=== PATIENT | female | born 1955 | race Caucasian/White ===

== ENCOUNTER 2020-12-15 11:40 | Observation (INO) ==
[2020-12-15] MEDS ORDERED: ONDANSETRON INJ 2 MG/ML 2 ML VIAL IV STA (12:01)
[2020-12-15] MEDS ORDERED: SODIUM CHLORIDE 0.9% 1000ML 1,000 ML IV STA (12:01)
--- NOTE | 2020-12-15 12:23 | Emergency Department Note ---
Impression & Plan Hypotension, Colitis, Left sided abdominal pain, Leukocytosis, MATILDE (acute kidney injury) ED Provider Note NAME: SIXTO GRACIA AGE: 64 SEX: F : 1955 ARRIVES VIA: Walk-In INFORMANT: [Patient] ED PROVIDER(S): [Kaiden Chisholm MD] CHIEF COMPLAINT: Abdominal pain HISTORY OF PRESENT ILLNESS: The patient is a 64-year-old female presents with 24 hours of intermittent, colicky abdominal pain. The pain is described as diffuse and sometimes, a 10/10. No pain radiation. Nothing makes the pain better or worse. There has been some nausea, no vomiting. No shortness of breath, fever or chest pain. The patient does feel bloated. The patient states that she had a bowel movement today, it seemed normal. She has had decreased bowel movements though as of late so she is concerned about some constipation. No urinary complaints. The patient had surgery for a fracture to her right foot 10 days ago, she is currently in a cast. She has been using some pain medications intermittently since the surgery. The patient denies any surgical work on her abdomen previously. REVIEW OF SYSTEMS: See HPI for pertinent positives and negatives. A total of ten systems were reviewed and were otherwise negative. PMHx/PSHx: See Below SOCIAL HISTORY: See Below. PHYSICAL EXAM: GENERAL: Patient is in no acute distress. HEENT: No acute trauma, normocephalic atraumatic, mucous membranes moist, no nasal congestion, no scleral icterus. NECK: No stridor, no adenopathy, no meningismus, trachea is midline. LUNGS: Clear to auscultation bilaterally, no wheeze, no rhonchi, breath sounds equal. HEART: Without murmurs gallops or rubs, regular rate and rhythm. ABDOMEN: Moderately tender in the left lower quadrant. Bowel sounds are positive. There is no peritonitis. The abdomen is otherwise soft. There is some abdominal distention, no obvious hernias. EXTREMITIES: No cyanosis. There is a cast on the right foot and ankle. No significant edema to the left lower extremity. NEUROLOGIC: Oriented x 3, no acute motor or sensory deficits, no focal weakness. SKIN: No rash, no jaundice, no diaphoresis. Somewhat pale. DIFFERENTIAL DIAGNOSIS: Appendicitis, ovarian cyst, ovarian torsion, infections, diverticulitis, UTI, obstruction, mesenteric ischemia, aortic pathology, inflammatory bowel disease, renal colic, PUD, pancreatitis, biliary pathology, hernia, volvulus, constipation, as well as other pathologies. EMERGENCY DEPARTMENT COURSE/PROCEDURES: ECG: Indication was abdominal pain. The ECG shows what is a likely normal sinus rhythm with a rate of 91. There is no PVC. There is no ST elevation. The QTc is 423. The patient does have inverted T waves in the higher lateral leads. There is an old inferior infarct and some poor R wave progression. Compared to an ECG from 02 November 2008, the T wave changes are less pronounced. Criteria for potential old inferior infarct is new. Continuous Cardiac Monitoring: An order was placed for continuous cardiac monitoring. The monitor shows a rate of 95 with normal sinus rhythm. Critical Care Note: I have personally spent 46 minutes of critical care time in the direct management of this patient. This includes bedside care, interpretation of diagnostic studies, and testing, discussion with consultants, patient, and family members, and other required patient management activities. This 46 minutes is in excess of all separately billable procedures. MEDICAL DECISION MAKING: There is a moderate leukocytosis consistent with potential infection. No worris ome anemia. Platelet count mildly elevated. INR was elevated at 3.8, this is consistent with her Coumadin use, she is over anticoagulated. Potassium slightly high at 5.3. There was some acute kidney injury with a creatinine of 1.84. There was some liver enzyme elevation, the bilirubin however was normal. No evidence for pancreatitis. ECG shows a sinus rhythm, no acute ischemia. Cardiac enzyme testing x1 is not consistent with acute cardiac injury. Lactic acid level was not elevated making severe sepsis less likely. Covid testing returned negative. Chest film did not show pneumonia or free air. A potential subacute rib fracture was seen. Abdominal and pelvis CT showed a colitis/p roctitis. No bowel obstruction. No abscess. Pneumonia was questioned as caught on the CT scan. Urinalysis is pending. The patient was hypotensive upon arrival. She was given IV saline, 1 L. She was given a second liter of IV saline. She received IV Zofran for nausea, IV Ertapenem as empiric antibiotic coverage. The patient is still somewhat hypotensive although, her pressure has improved. Given the leukocytosis, her hypotension, her acute kidney injury and CT findings of colitis/proctitis, I do think a hospital stay is warranted. I spoke to the patient and case management. The on-call hospitalist has been consulted. Past Med/Surg History Medical History Anemia Ankle fracture RT Hx of migraines Hyperlipidemia Hypertension Stroke 2008 (NO PROBLEMS CURRENTLY) Surgical History History of nasal surgery History of tonsillectomy [place] teeth removed Family History Father Alcohol abuse Heart disease Seizure Brother Alcohol abuse Lung disease Mother Heart disease Kidney stones Hypertension Sister Heart disease Lung disease Other Myocardial infarction No family history of adverse response to anesthesia Denies family history of Ovarian cancer Prostate cancer Breast cancer Colorectal cancer Social History Smoking Status: Never smoker Second Hand Exposure: Yes ( A CHILD); Hx Alcohol Use: No Hx Substance Use: No Preferred Language: Nepali 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 Beliefs That Will Affect Care: None marital status: Current Living Situation: Spouse current occupational status: retired Other Information That Helps Us Care for You: No Feels Safe at Home: Yes Safety Concerns: Feels Safe At This Time Dental Care, Regularly: Yes Physical Activity Frequency: Daily Assistive Devices: Walker and Wheelchair Allergies Allergies Allergy/AdvReac Type Severity Reaction Status Date / Time Penicillins Allergy Mild Verified 12/05/20 06:28 Home Meds Home Medications Medication Instructions Recorded Confirmed atorvastatin 40 mg PO HS 11/30/20 12/15/20 carvedilol 25 mg PO BID 11/30/20 12/15/20 lisinopril 10 mg PO HS 11/30/20 12/15/20 warfarin 2.5 mg PO HS 11/30/20 12/15/20 acetaminophen [Tylenol Extra 500 mg PO Q6H PRN 12/15/20 12/15/20 Strength] cholecalciferol (vitamin D3) 0 mcg PO DAILY 12/15/20 12/15/20 zinc 0 mg PO DAILY 12/15/20 12/15/20 Previous Rx's Medication Instructions Recorded aspirin 81 mg tablet,delayed 81 mg PO DAILY #30 tab 11/17/20 release oxycodone 5 mg PO Q4H PRN #15 tab 11/25/20 Results & Data (ED) Vital Signs Vital Signs - 24 hr 12/15/20 11:43 12/15/20 11:50 12/15/20 12:08 Temperature 36.3 C L Temperature Source Temporal Artery Scan Pulse Rate 107 H 94 H 93 H Pulse Rate [Finger] Pulse Rate from SpO2 Sensor Respiratory Rate 20 17 20 Respiratory Effort / Characteristics Non-Labored Spontaneous Respiratory Depth Normal Blood Pressure 83/52 L Blood Pressure [Right Arm] 86/50 L Blood Pressure Mean 62 Blood Pressure Mean [Right Arm] 62 Pulse Oximetry 98 Oxygen Delivery Method Room Air Sepsis Recent Fever Within 48 Hours No Sepsis New/Unexplained Change in Mental Status No Sepsis Action Taken by Nursing No Action Required 12/15/20 12:10 12/15/20 12:11 12/15/20 12:16 Temperature Temperature Source Pulse Rate 93 H 89 Pulse Rate [Finger] Pulse Rate from SpO2 Sensor 90 Respiratory Rate 24 27 H Respiratory Effort / Characteristics Respiratory Depth Blood Pressure 89/56 L Blood Pressure [Right Arm] Blood Pressure Mean 67 Blood Pressure Mean [Right Arm] Pulse Oximetry 97 99 Oxygen Delivery Method Room Air Sepsis Recent Fever Within 48 Hours Sepsis New/Unexplained Change in Mental Status Sepsis Action Taken by Nursing 12/15/20 12:20 12/15/20 12:30 12/15/20 12:40 Temperature Temperature Source Pulse Rate 91 H 83 79 Pulse Rate [Finger] Pulse Rate from SpO2 Sensor 92 H Respiratory Rate 23 24 18 Respiratory Effort / Characteristics Respiratory Depth Blood Pressure Blood Pressure [Right Arm] Blood Pressure Mean Blood Pressure Mean [Right Arm] Pulse Oximetry 100 Oxygen Delivery Method Sepsis Recent Fever Within 48 Hours Sepsis New/Unexplained Change in Mental Status Sepsis Action Taken by Nursing 12/15/20 12:50 12/15/20 13:00 12/15/20 13:10 Temperature Temperature Source Pulse Rate 84 81 82 Pulse Rate [Finger] Pulse Rate from SpO2 Sensor Respiratory Rate 20 19 19 Respiratory Effort / Characteristics Respiratory Depth Blood Pressure Blood Pressure [Right Arm] Blood Pressure Mean Blood Pressure Mean [Right Arm] Pulse Oximetry Oxygen Delivery Method Sepsis Recent Fever Within 48 Hours Sepsis New/Unexplained Change in Mental Status Sepsis Action Taken by Nursing 12/15/20 13:20 12/15/20 13:30 12/15/20 13:34 Temperature Temperature Source Pulse Rate 90 87 89 Pulse Rate [Finger] Pulse Rate from SpO2 Sensor Respiratory Rate 25 H 22 23 Respiratory Effort / Characteristics Respiratory Depth Blood Pressure 80/53 L Blood Pressure [Right Arm] Blood Pressure Mean 62 Blood Pressure Mean [Right Arm] Pulse Oximetry Oxygen Delivery Method Sepsis Recent Fever Within 48 Hours Sepsis New/Unexplained Change in Mental Status Sepsis Action Taken by Nursing 12/15/20 13:36 12/15/20 13:47 12/15/20 13:50 Temperature Temperature Source Pulse Rate 89 84 Pulse Rate [Finger] 85 Pulse Rate from SpO2 Sensor 84 Respiratory Rate 16 24 23 Respiratory Effort / Characteristics Non-Labored Respiratory Depth Normal Blood Pressure Blood Pressure [Right Arm] 80/53 L Blood Pressure Mean Blood Pressure Mean [Right Arm] 62 Pulse Oximetry 96 98 Oxygen Delivery Method Room Air Sepsis Recent Fever Within 48 Hours Sepsis New/Unexplained Change in Mental Status Sepsis Action Taken by Nursing 12/15/20 14:00 12/15/20 14:10 12/15/20 14:20 Temperature Temperature Source Pulse Rate 88 79 84 Pulse Rate [Finger] Pulse Rate from SpO2 Sensor 87 80 84 Respiratory Rate 18 24 22 Respiratory Effort / Characteristics Respiratory Depth Blood Pressure Blood Pressure [Right Arm] Blood Pressure Mean Blood Pressure Mean [Right Arm] Pulse Oximetry 97 97 97 Oxygen Delivery Method Sepsis Recent Fever Within 48 Hours Sepsis New/Unexplained Change in Mental Status Sepsis Action Taken by Nursing 12/15/20 14:30 12/15/20 14:40 12/15/20 14:50 Temperature Temperature Source Pulse Rate 94 H 93 H 94 H Pulse Rate [Finger] Pulse Rate from SpO2 Sensor 95 H 94 H Respiratory Rate 18 17 22 Respiratory Effort / Characteristics Respiratory Depth Blood Pressure Blood Pressure [Right Arm] Blood Pressure Mean Blood Pressure Mean [Right Arm] Pulse Oximetry 97 74 L 97 Oxygen Delivery Method Sepsis Recent Fever Within 48 Hours Sepsis New/Unexplained Change in Mental Status Sepsis Action Taken by Nursing 12/15/20 15:00 12/15/20 15:10 12/15/20 15:17 Temperature Temperature Source Pulse Rate 102 H 92 H 85 Pulse Rate [Finger] Pulse Rate from SpO2 Sensor 98 H 92 H 84 Respiratory Rate 20 19 19 Respiratory Effort / Characteristics Respiratory Depth Blood Pressure 96/52 L Blood Pressure [Right Arm] Blood Pressure Mean 66 Blood Pressure Mean [Right Arm] Pulse Oximetry 99 91 96 Oxygen Delivery Method Sepsis Recent Fever Within 48 Hours Sepsis New/Unexplained Change in Mental Status Sepsis Action Taken by [facility] Medications Current Medication List: was personally reviewed by me Laboratory Data Attestation: I reviewed the patient's lab results. Result diagrams: 12/15/20 12:15 12/15/20 12:15 Lab Results 12/15/20 12/15/20 12/15/20 Range/Units 12:15 12:15 12:15 WBC 15.59 H (4.8-10.8) K/uL RBC 3.90 L (4.2-5.4) M/uL Hgb 11.9 L (12.0-16.0) g/dL Hct 34.7 L (37-47) % MCV 89.0 (80-100) fL MCH 30.5 (25-34) pg MCHC 34.3 (32-36) g/dL RDW Std Deviation 43.1 (36.4-46.3) fL RDW Coeff of Anibal 13.4 (11.5-14.5) % Plt Count 426 H (130-400) K/uL MPV 9.6 (7.4-10.4) fL Immature Gran % (Auto) 0.3 % Neut % (Auto) 86.0 % Lymph % (Auto) 6.9 % [place] % (Auto) 5.5 % Eos % (Auto) 1.2 % Baso % (Auto) 0.1 % Neut # (Auto) 13.40 H (1.4-6.5) K/uL Lymph # (Auto) 1.08 L (1.2-3.4) K/uL [place] # (Auto) 0.85 H (0.11-0.59) K/uL Eos # (Auto) 0.19 (0-0.5) K/uL Baso # (Auto) 0.02 (0-0.2) K/uL Immature Gran # (Auto) 0.05 H (0.00-0.02) K/uL PT (9.0-12.0) Seconds INR (0.9-1.1) APTT (21.0-31.0) Seconds PTT Ratio Sodium 138 (136-145) mmol/L Potassium 5.3 H (3.5-5.1) mmol/L Chloride 109 H (98-107) mmol/L Carbon Dioxide 22 (21-32) mmol/L Anion Gap 7.0 (3-11) BUN 27 H (7-18) mg/dl Creatinine 1.84 H (0.6-1.2) mg/dl Est Cr Clr Drug Dosing 26.0 ml/min Est GFR ( Amer) 32.5 Est GFR (Non-Af Amer) 28.1 BUN/Creatinine Ratio 14.6 (10-20) Glucose 96 (70-99) mg/dl Lactate 1.3 (0.4-2.0) mmol/L Calcium 10.0 (8.5-10.1) mg/dl Magnesium 1.9 (1.8-2.4) mg/dl Total Bilirubin 0.8 (0.2-1) mg/dl AST 108 H (15-37) U/L ALT 105 H (12-78) U/L Alkaline Phosphatase 160 H (45-117) U/L Troponin I < 0.015 (0-0.045) ng/ml Total Protein 7.2 (6.4-8.2) gm/dl Albumin 3.3 L (3.4-5.0) gm/dl Globulin 3.9 (2.5-4.0) gm/dl Albumin/Globulin Ratio 0.8 L (0.9-2) Lipase 265 (73-393) U/L COVID-19 Eval Order SARS-CoV-2, RNA, NAAT (NEGATIVE) 12/15/20 12/15/20 12/15/20 Range/Units 12:15 14:40 14:40 WBC (4.8-10.8) K/uL RBC (4.2-5.4) M/uL Hgb (12.0-16.0) g/dL Hct (37-47) % MCV (80-100) fL MCH (25-34) pg MCHC (32-36) g/dL RDW Std Deviation (36.4-46.3) fL RDW Coeff of Anibal (11.5-14.5) % Plt Count (130-400) K/uL MPV (7.4-10.4) fL Immature Gran % (Auto) % Neut % (Auto) % Lymph % (Auto) % [place] % (Auto) % Eos % (Auto) % Baso % (Auto) % Neut # (Auto) (1.4-6.5) K/uL Lymph # (Auto) (1.2-3.4) K/uL [place] # (Auto) (0.11-0.59) K/uL Eos # (Auto) (0-0.5) K/uL Baso # (Auto) (0-0.2) K/uL Immature Gran # (Auto) (0.00-0.02) K/uL PT 34.9 H (9.0-12.0) Seconds INR 3.8 H (0.9-1.1) APTT 79.3 H* (21.0-31.0) Seconds PTT Ratio 3.0 Sodium (136-145) mmol/L Potassium (3.5-5.1) mmol/L Chloride (98-107) mmol/L Carbon Dioxide (21-32) mmol/L Anion Gap (3-11) BUN (7-18) mg/dl Creatinine (0.6-1.2) mg/dl Est Cr Clr Drug Dosing ml/min Est GFR ( Amer) Est GFR (Non-Af Amer) BUN/Creatinine Ratio (10-20) Glucose (70-99) mg/dl Lactate (0.4-2.0) mmol/L Calcium (8.5-10.1) mg/dl Magnesium (1.8-2.4) mg/dl Total Bilirubin (0.2-1) mg/dl AST (15-37) U/L ALT (12-78) U/L Alkaline Phosphatase (45-117) U/L Troponin I (0-0.045) ng/ml Total Protein (6.4-8.2) gm/dl Albumin (3.4-5.0) gm/dl Globulin (2.5-4.0) gm/dl Albumin/Globulin Ratio (0.9-2) Lipase (73-393) U/L COVID-19 Eval Order Covid19 [facility] SARS-CoV-2, RNA, NAAT NEGATIVE (NEGATIVE) Administered Medications Ampicillin Sodium/Sulbactam Sodium 1,500 mg/ Sodium Chloride 104 mls @ 200 mls/hr IV Q8H [facility]; Protocol Stop: 12/25/20 15:18 Last Infusion: 12/15/20 16:16 Dose: 0 mls/hr Documented by: [id number] Admin: 12/15/20 15:40 Dose: 200 mls/hr Documented by: [id number] Lactated Ringer's (Lr) 1,000 mls @ 80 mls/hr IV .[id number] BILL Stop: 12/16/20 17:36 Last Admin: 12/15/20 18:32 Dose: 80 mls/hr Documented by: [id number] Discontinued Medications Sodium Chloride (Nss 1000ml) 1,000 mls @ 999 mls/hr IV .Q1H1M STA Stop: 12/15/20 13:01 Last Infusion: 12/15/20 13:24 Dose: 0 mls/hr Documented by: [id number] Admin: 12/15/20 12:22 Dose: 999 mls/hr Documented by: [id number] Sodium Chloride (Nss 1000ml) 1,000 mls @ 999 mls/hr IV .Q1H1M ONE Stop: 12/15/20 15:27 Last Infusion: 12/15/20 16:16 Dose: 0 mls/hr Documented by: [id number] Admin: 12/15/20 15:04 Dose: 999 mls/hr Documented by: [id number] Ertapenem (Invanz) 10 mls @ 2 mls/min IV NOW STA Stop: 12/15/20 14:31 Last Admin: 12/15/20 15:20 Dose: Not Given Documented by: [id number] Ondansetron HCl (Ondansetron Inj 2 Mg/Ml 2 Ml Vial) 4 mg IV NOW STA Stop: 12/15/20 12:02 Last Admin: 12/15/20 12:22 Dose: 4 mg Documented by: [id number] Imaging Data Radiologist's Impression: XR chest 1V portable HISTORY: 64 years-old Female abd pain acute chest and abdominal pain COMPARISON: Chest radiograph 10/30/2008 TECHNIQUE: Portable AP view of the chest FINDINGS: Cardiomediastinal and hilar silhouettes are within normal limits. There is no pneumothorax, pleural effusion, airspace consolidation or overt pulmonary edema. Minimal lateral right lung base opacities may reflect atelectasis. Degenerative spurring of the AC joint. Acute subacute appearing slightly displaced fracture involves the lateral right ninth rib. IMPRESSION: 1. No acute cardiopulmonary abnormality. 2. Acute versus subacute slightly displaced fracture of the lateral right ninth rib. ADDENDUM ADDENDUM: The findings of the report are unchanged. As an additional impression point, there is an acute to subacute appearing right lateral 9th rib fracture. Electronically signed by: Kaiden Merida M.D. 12/15/2020 2:[address] SCAN OF THE ABDOMEN AND PELVIS WITHOUT IV CONTRAST CLINICAL HISTORY: Left lower quadrant abdominal pain. COMPARISON STUDY: No priors. TECHNIQUE: CT scan of the abdomen and pelvis is performed from the lung bases to the proximal femora. Images are reviewed in the axial, sagittal, and coronal planes. IV contrast was not administered for this examination. Note that the examination is suboptimal without oral and IV contrast. A dose lowering technique was utilized adhering to the principles of ALARA. The examination is compromised by motion artifact. CT DOSE: 264.67 mGy.cm FINDINGS: Lung bases: The heart is normal in size and without pericardial effusion. Patchy airspace consolidation is present at both lung bases. No pleural effusion is seen. There is a tiny hiatal hernia. Liver: The unenhanced liver is normal in size, contour, and attenuation. There is no intrahepatic biliary ductal dilatation. Gallbladder: Unremarkable. Spleen: Normal in size and attenuation. Pancreas: The unenhanced pancreas is grossly unremarkable. Adrenal glands: Unremarkable. Kidneys: The unenhanced kidneys are normal in size. There is moderate right- sided hydronephrosis. The right ureter is normal in caliber, with no obstructing stone or lesion identified. There is no left-sided hydronephrosis. There are no renal calculi identified. There is no evidence of contour deforming renal mass lesion. Abdominal vasculature: The abdominal aorta is normal in course and caliber noting moderate atherosclerotic calcification. Bowel: There is a long segment of colonic wall thickening which extends from the distal descending colon to the rectum. There is associated mucosal edema with surrounding inflammatory change and fluid. Moderate fecal retention is noted upstream common there is liquid stool in the right colon. Mild wall thickening is noted in the right colon. There is also mild wall thickening and infiltration seen involving several small bowel loops. No bowel obstruction is identified. The appendix is normal as visualized. Peritoneum: No intraperitoneal free air is seen. There is trace perihepatic and pelvic ascites. Lymphadenopathy: None. Pelvic viscera: The bladder is normal as visualized. The uterus is normal as imaged noting an intrauterine device in place. No adnexal lesion is seen. Skeletal structures: The skeletal structures are osteopenic. There is an acute to subacute appearing right lateral 9th rib fracture. No lytic or blastic le sions are seen. There is a posterior disc herniation at L4-L5. IMPRESSION: 1. Findings are consistent with a nonspecific enteritis and proctocolitis. This is greatest from the distal descending colon to the rectum. 2. There is moderate fecal retention in the upstream colon, with liquid stool seen in the right colon. 3. There is trace perihepatic and pelvic ascites. 4. Mild patchy airspace consolidation is seen at both lung bases. This likely represents a mild infectious/inflammatory pneumonitis and clinical correlation will be required. 5. There is moderate right-sided hydronephrosis. The right ureter is normal in caliber, with no stone or obstructing lesion seen. 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 Nonemergent follow-up with urology is recommended. 6. An intrauterine device is in place. 7. Additional findings as above. Discharge Plan Visit Data Chief Complaint: Abdominal Pain Stated Complaint: ABD PAIN, NO APPETITE ED Provider: Kaiden Chisholm Discharge Problem: Hypotension, Colitis, Left sided abdominal pain, Leukocytosis, MATILDE (acute kidney injury) Patient Disposition: Admitted As Inpatient Condition: Fair Discharge Instructions Interventions: ED Discharge Assessment Last Done: 12/15/20 16:42 Discharge Problem: Hypotension Qualifiers: Hypotension type: unspecified hypotension type Qualified Code(s): I95.9 - Hypotension, unspecified Leukocytosis Qualifiers: Leukocytosis type: unspecified Qualified Code(s): D72.829 - Elevated white bl ood cell count, unspecified
[2020-12-15 12:28] LABS: Hematocrit (blood only) 34.7 % (37-47); Hemoglobin 11.9 g/dL (12.0-16.0); Mean Corpuscular Hemoglobin 30.5 pg (25-34); Mean Corpuscular Hgb Conc 34.3 g/dL (32-36); Mean Platelet Volume 9.6 fL (7.4-10.4); Platelet Count 426 K/uL (130-400); RDW Coefficient of Variation 13.4 % (11.5-14.5); RDW Standard Deviation 43.1 fL (36.4-46.3); White Blood Count 15.59 K/uL (4.8-10.8)
--- NOTE | 2020-12-15 12:37 | XRay Report ---
XR chest 1V portable HISTORY: 64 years-old Female abd pain acute chest and abdominal pain COMPARISON: Chest radiograph 10/30/2008 TECHNIQUE: Portable AP view of the chest FINDINGS: Cardiomediastinal and hilar silhouettes are within normal limits. There is no pneumothorax, pleural e ffusion, airspace consolidation or overt pulmonary edema. Minimal lateral right lung base opacities m ay reflect atelectasis. Degenerative spurring of the AC joint. Acute subacute appearing slightly disp laced fracture involves the lateral right ninth rib. IMPRESSION: 1. No acute cardiopulmonary abnormality. 2. Acute versus subacute slightly displaced fracture of the lateral right ninth rib. ACT 112: Negative or not required by law. The above report was generated using voice recognition software. It may contain grammatical, syntax o r spelling errors. Electronically signed by: Giovanni Pavon M.D. 12/15/2020 12:36 PM
[2020-12-15 12:46] LABS: Alanine Aminotransferase 105 U/L (12-78); Albumin Level 3.3 gm/dl (3.4-5.0); Aspartate Aminotransferase 108 U/L (15-37); BUN Creatinine Ratio 14.6 (10-20); Blood Urea Nitrogen 27 mg/dl (7-18); Carbon Dioxide 22 mmol/L (21-32); Chloride 109 mmol/L (98-107); Est GFR (African American) 32.5; Est GFR (Non-African American) 28.1; Glucose 96 mg/dl (70-99); Lipase 265 U/L (73-393); Magnesium 1.9 mg/dl (1.8-2.4); Potassium 5.3 mmol/L (3.5-5.1); Sodium 138 mmol/L (136-145)
[2020-12-15 12:47] LABS: Basophils # (auto) 0.02 K/uL (0-0.2); Basophils % (auto) 0.1 %; Eosinophils # (auto) 0.19 K/uL (0-0.5); Eosinophils % (auto) 1.2 %; Immature Granulocytes # (auto) 0.05 K/uL (0.00-0.02); Immature Granulocytes % (auto) 0.3 %; Lymphocytes # (auto) 1.08 K/uL (1.2-3.4); Lymphocytes % (auto) 6.9 %; Monocytes # (auto) 0.85 K/uL (0.11-0.59); Monocytes % (auto) 5.5 %
[2020-12-15 12:48] LABS: INR 3.8 (0.9-1.1); Prothrombin Time 34.9 Seconds (9.0-12.0)
[2020-12-15 12:51] LABS: Albumin Globulin Ratio 0.8 (0.9-2); Alkaline Phosphatase 160 U/L (45-117); Bilirubin,Total 0.8 mg/dl (0.2-1); Globulin 3.9 gm/dl (2.5-4.0); Total Protein 7.2 gm/dl (6.4-8.2); Troponin I < 0.015 ng/ml (0-0.045)
[2020-12-15 12:55] LABS: Partial Thromboplastin Time 79.3 Seconds (21.0-31.0)
--- NOTE | 2020-12-15 13:58 | CT Scan Report ---
CT SCAN OF THE ABDOMEN AND PELVIS WITHOUT IV CONTRAST CLINICAL HISTORY: Left lower quadrant abdominal pain. COMPARISON STUDY: No priors. TECHNIQUE: CT scan of the abdomen and pelvis is performed from the lung bases to the proximal femora. Images are reviewed in the axial, sagittal, and coronal planes. IV contrast was not administered for this examination. Note that the examination is suboptimal without oral and IV contrast. A dose lower ing technique was utilized adhering to the principles of ALARA. The examination is compromised by mot ion artifact. CT DOSE: 264.67 mGy.cm FINDINGS: Lung bases: The heart is normal in size and without pericardial effusion. Patchy airspace consolidati on is present at both lung bases. No pleural effusion is seen. There is a tiny hiatal hernia. Liver: The unenhanced liver is normal in size, contour, and attenuation. There is no intrahepatic otis iary ductal dilatation. Gallbladder: Unremarkable. Spleen: Normal in size and attenuation. Pancreas: The unenhanced pancreas is grossly unremarkable. Adrenal glands: Unremarkable. Kidneys: The unenhanced kidneys are normal in size. There is moderate right-sided hydronephrosis. The right ureter is normal in caliber, with no obstructing stone or lesion identified. There is no left- sided hydronephrosis. There are no renal calculi identified. There is no evidence of contour deformin g renal mass lesion. Abdominal vasculature: The abdominal aorta is normal in course and caliber noting moderate atheroscle rotic calcification. Bowel: There is a long segment of colonic wall thickening which extends from the distal descending co caesar to the rectum. There is associated mucosal edema with surrounding inflammatory change and fluid. Moderate fecal retention is noted upstream common there is liquid stool in the right colon. Mild wall thickening is noted in the right colon. There is also mild wall thickening and infiltration seen inv olving several small bowel loops. No bowel obstruction is identified. The appendix is normal as visu alized. Peritoneum: No intraperitoneal free air is seen. There is trace perihepatic and pelvic ascites. Lymphadenopathy: None. Pelvic viscera: The bladder is normal as visualized. The uterus is normal as imaged noting an intraut erine device in place. No adnexal lesion is seen. Skeletal structures: The skeletal structures are osteopenic. There is an acute to subacute appearing right lateral 9th rib fracture. No lytic or blastic lesions are seen. There is a posterior disc herni ation at L4-L5. IMPRESSION: 1. Findings are consistent with a nonspecific enteritis and proctocolitis. This is greatest from the distal descending colon to the rectum. 2. There is moderate fecal retention in the upstream colon, with liquid stool seen in the right colon . 3. There is trace perihepatic and pelvic ascites. 4. Mild patchy airspace consolidation is seen at both lung bases. This likely represents a mild infec tious/inflammatory pneumonitis and clinical correlation will be required. 5. There is moderate right-sided hydronephrosis. The right ureter is normal in caliber, with no stone or obstructing lesion seen. 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 Nonemergent fo llow-up with urology is recommended. 6. An intrauterine device is in place. 7. Additional findings as above. ACT 112: Positive. There are findings on this exam that require communication between the performing entity and the patient following Patient Test Result Information Act ([place] Act 112) guidelines. Electronically signed by: Kaiden Merida M.D. 12/15/2020 1:57 PM
[2020-12-15] MEDS ORDERED: ERTAPENEM SODIUM 10 ML IV STA (14:27)
[2020-12-15] MEDS ORDERED: SODIUM CHLORIDE 0.9% 1000ML 1,000 ML IV ONE (14:27)
--- NOTE | 2020-12-15 14:53 | History & Physical Report ---
Date of Service December 15, 2020 Assessment & Plan (1) Colitis: - Admit to med surg - WBC elevated at 15.59, left shift, afebrile. - COVID 19 is negative - Antibiotics with unasyn IV -discussed penicillin allergy with the patient who reports history of such -- 20+ years ago given an IV antibiotic injection and reports that her physician needed to call her name aloud 3 times before she came to, denies anaphylactic reaction, hives, itching, gastrointestinal reaction. She is agreeable to trial of this antibiotic today. - NPO except sips and chips with diet advanced as tolerated - Pt reports never having a colonoscopy before - recommend this after colitis is cleared up as an outpatient for malignancy screening purposes (2) Stroke: -History of such in 2008, maintained on Coumadin, [facility] follows for results -INR daily with labs, monitor while on antibiotics as above (3) Hypertension: -Patient presented hypotensive with BP in the 80s/50s, had 1 L in the ER, second liter was hung while at bedside, monitor BP, now 96/52 -Blood cultures and urine culture pending -Continue with lactated Ringer's IV after 2 L bolus NSS -Holding antihypertensives including carvedilol and lisinopril for now (4) Hyperlipidemia: -Continue statin therapy (5) Ankle fracture: -Operated on 12/05/[address] Toth as an outpt in surgical center -Has been taking pain control with oxycodone at home, holding this medication for now as could worsen colitis DVT ppx: - teds, Coumadin CODE: Full code Dispo: From home, likely to remain in the hospital x 1-2 days History of Present Illness Primary Care Provider: Shiela Sanz DO This is a 64-year-old female with PMHx of HTN, HLD, vitamin D deficiency, history of CVA in 2008 on Coumadin, anemia, migraines, and recent right ankle trimalleolar fracture sustained on 11/25/20 and was operated on on 12/05/2020, who presents with acute abdominal pain which has been ongoing for the past week. She reports that it got acutely worse yesterday and felt extremely nauseous. She has been eating crackers and Jell-O for the last 4-5 days, due to worsening abdominal pain in the left lower quadrant as well as nausea. She denies any recent changes in her diet, no consumption of raw or undercooked foods, denies any known sick contacts. Pt reports that she has been moving her bowels daily, denies any bright red blood per rectum, dark tarry stools, distention, and has been able to drink fluids without much difficulty. Yesterday she drank orange juice, coffee, soda and water. She has been taking her medications routinely up until today as she was too nauseous, and denies vomiting. [facility] follows her INR. In regards to her ankle, she is nonweightbearing and has been primarily wheelchair-bound for now, prior to this she was ambulatory without assistive devices. Patient lives at home with her . Denies smoking history or alcohol use. Allergies Allergy/AdvReac Type Severity Reaction Status Date / Time No Known Allergies Allergy Unverified 12/15/20 21:31 Home Medications Medication Instructions Recorded Confirmed Type aspirin 81 mg tablet,delayed 81 mg PO DAILY #30 tab 11/17/20 12/15/20 Rx release oxycodone 5 mg PO Q4H PRN #15 tab 11/25/20 12/15/20 Rx atorvastatin 40 mg PO HS 11/30/20 12/15/20 History carvedilol 25 mg PO BID 11/30/20 12/15/20 History lisinopril 10 mg PO HS 11/30/20 12/15/20 History warfarin 2.5 mg PO HS 11/30/20 12/15/20 History acetaminophen [Tylenol Extra 500 mg PO Q6H PRN 12/15/20 12/15/20 History Strength] cholecalciferol (vitamin D3) 0 mcg PO DAILY 12/15/20 12/15/20 History zinc 0 mg PO DAILY 12/15/20 12/15/20 History Past Med/Surg History Medical History Anemia Ankle fracture RT Hx of migraines Hyperlipidemia Hypertension Stroke 2008 (NO PROBLEMS CURRENTLY) Surgical History History of nasal surgery History of tonsillectomy [place] teeth removed Family History Father Alcohol abuse Heart disease Seizure Brother Alcohol abuse Lung disease Mother Heart disease Kidney stones Hypertension Sister Heart disease Lung disease Other Myocardial infarction No family history of adverse response to anesthesia Denies family history of Ovarian cancer Prostate cancer Breast cancer Colorectal cancer Social History Smoking Status: Never smoker Second Hand Exposure: Yes ( A CHILD); Hx Alcohol Use: No Hx Substance Use: No Preferred Language: Samoan 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 Beliefs That Will Affect Care: None marital status: Current Living Situation: Spouse current occupational status: retired Other Information That Helps Us Care for You: No Feels Safe at Home: Yes Safety Concerns: Feels Safe At This Time Dental Care, Regularly: Yes Physical Activity Frequency: Daily Assistive Devices: Walker and Wheelchair Review of Systems Review of Systems: Constitutional: No fever, sweats or chills Eyes: No diplopia, no worsening or blurred vision ENT: normal hearing, no trouble swallowing Respiratory: No cough, sputum, dyspnea at rest or on exertion Cardiovascular: No chest pain, tightness or palpitations Abdomen: As per HPI. Musculoskeletal: No joint pain, calf pain, swelling, + right ankle fracture s/p fixation and in cast. Neurologic: No weakness, numbness/tingling, no balance problems Psychiatric: No anxiety or depression Skin: No rash or itch Physical Exam Physical Exam: General: awake, alert, no apparent distress Head: Normocephalic, atraumatic ENT: PERRL, EOMI, no pharyngeal exudate, mucous membranes moist Chest: Clear to auscultation, on room air, no adventitious breath sounds Cardiac: Regular rate and rhythm, no murmur, no JVD, normal peripheral pulses, good capillary refill Abdominal: NABS x 4 quadrants, soft, nondistended, + LLQ tender to palpation, no rebound or guarding Extremities: + Right LE casted s/p R ankle fixation, otherwise normal inspection, no peripheral edema or erythema, calfs nontender to palpation Psych: Normal mood and affect Neuro: AAO x 3, strength intact bilaterally and rated 5/5, no motor deficits, speech is clear, no peripheral sensory deficits Results & Data Results & Data ([facility]) Vital Signs (Past 12 Hours) Vital Signs Temp Pulse Pulse Resp BP Pulse Ox 12/15/20 13:36 85 16 80/53 L 96 12/15/20 12:11 97 12/15/20 11:50 86/50 L 12/15/20 11:43 36.3 C L 107 H [address] SCAN OF THE ABDOMEN AND PELVIS WITHOUT IV CONTRAST ADDENDUM ADDENDUM: The findings of the report are unchanged. As an additional impression point, there is an acute to subacute appearing right lateral 9th rib fracture. Electronically signed by: Kaiden Merida M.D. 12/15/2020 2:[address] SCAN OF THE ABDOMEN AND PELVIS WITHOUT IV CONTRAST CLINICAL HISTORY: Left lower quadrant abdominal pain. COMPARISON STUDY: No priors. TECHNIQUE: CT scan of the abdomen and pelvis is performed from the lung bases to the proximal femora. Images are reviewed in the axial, sagittal, and coronal planes. IV contrast was not administered for this examination. Note that the examination is suboptimal without oral and IV contrast. A dose lowering technique was utilized adhering to the principles of ALARA. The examination is compromised by motion artifact. CT DOSE: 264.67 mGy.cm FINDINGS: Lung bases: The heart is normal in size and without pericardial effusion. Patchy airspace consolidation is present at both lung bases. No pleural effusion is seen. There is a tiny hiatal hernia. Liver: The unenhanced liver is normal in size, contour, and attenuation. There is no intrahepatic biliary ductal dilatation. Gallbladder: Unremarkable. Spleen: Normal in size and attenuation. Pancreas: The unenhanced pancreas is grossly unremarkable. Adrenal glands: Unremarkable. Kidneys: The unenhanced kidneys are normal in size. There is moderate right- sided hydronephrosis. The right ureter is normal in caliber, with no obstructing stone or lesion identified. There is no left-sided hydronephrosis. There are no renal calculi identified. There is no evidence of contour deforming renal mass lesion. Abdominal vasculature: The abdominal aorta is normal in course and caliber noting moderate atherosclerotic calcification. Bowel: There is a long segment of colonic wall thickening which extends from the distal descending colon to the rectum. There is associated mucosal edema with surrounding inflammatory change and fluid. Moderate fecal retention is noted upstream common there is liquid stool in the right colon. Mild wall thickening is noted in the right colon. There is also mild wall thickening and infiltration seen involving several small bowel loops. No bowel obstruction is identified. The appendix is normal as visualized. Peritoneum: No intraperitoneal free air is seen. There is trace perihepatic and pelvic ascites. Lymphadenopathy: None. Pelvic viscera: The bladder is normal as visualized. The uterus is normal as imaged noting an intrauterine device in place. No adnexal lesion is seen. Skeletal structures: The skeletal structures are osteopenic. There is an acute to subacute appearing right lateral 9th rib fracture. No lytic or blastic lesions are seen. There is a posterior disc herniation at L4-L5. IMPRESSION: 1. Findings are consistent with a nonspecific enteritis and proctocolitis. This is greatest from the distal descending colon to the rectum. 2. There is moderate fecal retention in the upstream colon, with liquid stool seen in the right colon. 3. There is trace perihepatic and pelvic ascites. 4. Mild patchy airspace consolidation is seen at both lung bases. This likely represents a mild infectious/inflammatory pneumonitis and clinical correlation will be required. 5. There is moderate right-sided hydronephrosis. The right ureter is normal in caliber, with no stone or obstructing lesion seen. 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 Nonemergent follow-up with urology is recommended. 6. An intrauterine device is in place. 7. Additional findings as above. XR chest 1V portable HISTORY: 64 years-old Female abd pain acute chest and abdominal pain COMPARISON: Chest radiograph 10/30/2008 TECHNIQUE: Portable AP view of the chest FINDINGS: Cardiomediastinal and hilar silhouettes are within normal limits. There is no pneumothorax, pleural effusion, airspace consolidation or overt pulmonary edema. Minimal lateral right lung base opacities may reflect atelectasis. Degenerative spurring of the AC joint. Acute subacute appearing slightly displaced fracture involves the lateral right ninth rib. IMPRESSION: 1. No acute cardiopulmonary abnormality. 2. Acute versus subacute slightly displaced fracture of the lateral right ninth rib. ECG Additional Comments: 15-DEC-2020 12:08:05 [facility]-D ROUTINE RETRIEVAL Unusual P axis, possible ectopic atrial rhythm Low voltage QRS Cannot rule out Anterior infarct , age undetermined T wave abnormality, consider lateral ischemia Abnormal ECG When compared with ECG of 02-NOV-2008 06:52, Significant changes have occurred 25mm/s 10mm/mV 150Hz 9.0.9 12SL 241 ERIKA: 16 Referred by: REFERRED SELF Unconfirmed Vent. rate 91 BPM OH interval 176 ms QRS duration 76 ms QT/QTc 344/423 ms Code Status & VTE Plan Code Status Full code Supervising Physician Co-Signing Physician Notes I supervised Angela Shelley PA-C on this admission. I interviewed and examined the patient independently of her. The plan is as written in her note except for any following changes/exceptions: None 64yo F w/ hx of CVA and HTN who presents with colitis. Nausea and poor appetite are her main complaint. She was Covid tested which was negative. CT a/p shows enteritis/colitis; however, she has not had any diarrhea. Will get stool testing if able, treat symptomatically, and monitor. Will need colonoscopy at least for screening purposes after this has resolved. PG Care Time/CCT Total # of Minutes Spent Total Time Spent with Patient: Total time spent is greater than 50% in coordination of care (as documented) at patient's floor/unit and/or counseling patient: Coding Level of Care Code 10178 Initial Inpt Care Lvl 3 Diagnoses Colitis K52.9 Stroke I63.9 Hypertension I10 Hyperlipidemia E78.5 Ankle fracture S82.899A
[2020-12-15] MEDS ORDERED: AMPICILLIN/SULBACTAM SOD 1,500 MG in 0.9 % SODIUM CHLORIDE 100 ML IV SCH (15:19)
--- NOTE | 2020-12-15 16:56 | Electrocardiogram Report ---
Test Reason : Blood Pressure : / mmHG Vent. Rate : 091 BPM Atrial Rate : 091 BPM P-R Int : 176 ms QRS Dur : 076 ms QT Int : 344 ms P-R-T Axes : 150 -25 151 degrees QTc Int : 423 ms Unusual P axis, possible ectopic atrial rhythm Low voltage QRS T wave abnormality, consider lateral ischemia Abnormal ECG Confirmed by Fabricio Alejo ([id number]) on 12/15/2020 4:55:47 PM Referred By: REFERRED SELF Confirmed By:Jose Antonio Alejo
[2020-12-15] MEDS ORDERED: ONDANSETRON INJ 2 MG/ML 2 ML VIAL IV PRN (17:37)
[2020-12-15] MEDS ORDERED: oxyCODONE HCL IR 5 MG TAB (IMMEDIATE RELEASE) PO PRN (17:49)
[2020-12-15] MEDS: LACTATED RINGER'S 1,000 ML IV SCH (18:32)
[2020-12-15] MEDS ORDERED: carvediloL 25 MG TAB PO SCH (21:00)
[2020-12-15] MEDS ORDERED: lisinopril 10 MG TAB PO SCH (21:00)
[2020-12-15] MEDS: AMPICILLIN/SULBACTAM SOD 3,000 MG in 0.9 % SODIUM CHLORIDE 100 ML IV SCH (22:27)
[2020-12-15] MEDS: ATORVASTATIN 40 MG TAB PO SCH (22:27)
[2020-12-16] MEDS: LACTATED RINGER'S 1,000 ML IV SCH (05:49)
[2020-12-16] MEDS: AMPICILLIN/SULBACTAM SOD 3,000 MG in 0.9 % SODIUM CHLORIDE 100 ML IV SCH ×3 (05:50→21:16)
[2020-12-16 07:03] LABS: Hematocrit (blood only) 26.4 % (37-47); Hemoglobin 8.8 g/dL (12.0-16.0); Mean Corpuscular Hemoglobin 29.8 pg (25-34); Mean Corpuscular Hgb Conc 33.3 g/dL (32-36); Mean Corpuscular Volume 89.5 fL (80-100); Mean Platelet Volume 9.1 fL (7.4-10.4); Platelet Count 342 K/uL (130-400); RDW Coefficient of Variation 13.4 % (11.5-14.5); RDW Standard Deviation 43.5 fL (36.4-46.3); Red Blood Count 2.95 M/uL (4.2-5.4); White Blood Count 6.24 K/uL (4.8-10.8)
[2020-12-16 07:19] LABS: INR 4.5 (0.9-1.1); Prothrombin Time 40.6 Seconds (9.0-12.0)
[2020-12-16 07:51] LABS: Albumin Globulin Ratio 0.8 (0.9-2); Albumin Level 2.4 gm/dl (3.4-5.0); BUN Creatinine Ratio 15.6 (10-20); Bilirubin Direct 0.2 mg/dl (0-0.2); Bilirubin,Total 0.5 mg/dl (0.2-1); Calcium 8.4 mg/dl (8.5-10.1); Creatinine Clr Calc Pharmacy 38.5 ml/min; Est GFR (African American) 52.4; Est GFR (Non-African American) 45.2; Globulin 2.9 gm/dl (2.5-4.0); Potassium 4.7 mmol/L (3.5-5.1); Total Protein 5.3 gm/dl (6.4-8.2)
[2020-12-16] MEDS ORDERED: ASPIRIN 81 MG ECTAB PO SCH (09:00)
[2020-12-16] MEDS ORDERED: PHYTONADIONE 2.5 MG in SODIUM CHLORIDE 0.9% 50 ML IV ONE (09:45)
--- NOTE | 2020-12-16 10:37 | Gastrointestinal Consultation ---
Date of Consultation December 16, 2020 Assessment & Plan (1) Colitis: (2) Anemia: Pt is a 64 y/o female admitted w LLQ abd pain, nausea w/o vomiting, found to be anemic w/o GI bleeding symptom and non contrasted CT abd/pelvis signs of non specific enteritis, proctocolitis, fecal retention. DDx: ischemia, infection colitis, IBD, gastroenteritis, bowel overflow 2/2 constipation (on oxycodone at home for R ankle fracture) - Check stool studies to r/o infections - Anemia workup: check iron profile, FA, B12 levels - IVF support - Recommend outpt EGD/colonoscopy evals - ? indication to continue Warfarin + ASA for hx of CVA, recommend consultation with Neurology for med management Supervising Physician Co-Signing Physician Notes I saw and evaluated the patient. We were consulted for evaluation of left-sided abdominal discomfort and CT findings suggestive of colonic wall thickening. The patient denies having any hematochezia and notes that the symptoms began suddenly. She has never undergone upper endoscopy nor colonoscopy in the past. Physical examination No obvious distress, gingival hyperplasia noted Abdomen without significant tenderness today no rebound or peritoneal signs Impression: Patient with imaging findings suggestive of ischemic colitis. Given the elevated white count on admission we would recommend empiric use of an antibiotic for approximately 10 days. Would also suggest stool studies to include C. difficile and stool culture. We would plan to do upper endoscopy and colonoscopy given the patient's new history of anemia in about 4 to 6 weeks after changes from ischemic colitis have resolved. Please call with any questions or concerns, GI to sign off for the present time History of Present Illness Reason for Consultation: Colitis ? ischemic; anemia Requesting Physician: Dr. Sherry Garcia Attending Physician: Dr. Theodore Marina History of Present Illness Pt is a 64 y/o female w PMHx as noted below who presented w LLQ abd pain x 3 days, associated w nausea w/o vomiting. Denies fever, chills. Stools formed, and no rectal bleeding or dark tarry appearance. She denies sick contact, recent new meds/antibx, travels, no well water. Labs w/o leukocytosis but noted anemia w H/H 8.8/26. Baseline Hgb 10.9 earlier this month. She reports knowledge of anemia but not taking any oral supplements. INR 4.5, on Coumadin and ASA 81mg daily for hx of CVA. LFTs initially elevated but now normalizing today: Tibli 0.5, AST 60, ALT 67, Alk phose 115. Lipase 115. COVID [address] abd/pelvis w/o contrast showed signs of nonspecific enteritis and proctocolitis on descending colon to rectum. There's also moderate fecal retention upstream colon w liquid stool on R colon. Pt denies NSAIDs, tobacco, ETOH, marijuana products Denies family hx of colorectal ca, IBD Never had EGD or colonoscopy evals before. Allergies Allergy/AdvReac Type Severity Reaction Status Date / Time No Known Allergies Allergy Unverified 12/15/20 21:31 Home Medications Medication Instructions Recorded Confirmed Type aspirin 81 mg tablet,delayed 81 mg PO DAILY #30 tab 11/17/20 12/15/20 Rx release oxycodone 5 mg PO Q4H PRN #15 tab 11/25/20 12/15/20 Rx atorvastatin 40 mg PO HS 11/30/20 12/15/20 History carvedilol 25 mg PO BID 11/30/20 12/15/20 History lisinopril 10 mg PO HS 11/30/20 12/15/20 History warfarin 2.5 mg PO HS 11/30/20 12/15/20 History acetaminophen [Tylenol Extra 500 mg PO Q6H PRN 12/15/20 12/15/20 History Strength] cholecalciferol (vitamin D3) 0 mcg PO DAILY 12/15/20 12/15/20 History zinc 0 mg PO DAILY 12/15/20 12/15/20 History Patient History Medical History Anemia Ankle fracture RT Hx of migraines Hyperlipidemia Hypertension Stroke 2008 (NO PROBLEMS CURRENTLY) Surgical History History of nasal surgery History of tonsillectomy [place] teeth removed Family History Father Alcohol abuse Heart disease Seizure Brother Alcohol abuse Lung disease Mother Heart disease Kidney stones Hypertension Sister Heart disease Lung disease Other Myocardial infarction No family history of adverse response to anesthesia Denies family history of Ovarian cancer Prostate cancer Breast cancer Colorectal cancer Social History Smoking Status: Never smoker Second Hand Exposure: Yes ( A CHILD); Hx Alcohol Use: No Hx Substance Use: No Preferred Language: Latvian Communication Ability: Effective 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 Beliefs That Will Affect Care: None marital status: Current Living Situation: Spouse current occupational status: retired Other Information That Helps Us Care for You: No Feels Safe at Home: Yes Safety Concerns: Feels Safe At This Time Dental Care, Regularly: Yes Physical Activity Frequency: Daily Assistive Devices: Walker and Wheelchair Review of Systems Review of Systems: All systems reviewed & are unremarkable except as noted in HPI & below Physical Exam Constitutional: WD/WN, vitals as above well groomed, cooperative and comfortable Eyes: PERRL, conjunctivae normal, anicteric sclerae ENMT: external ear and nose normal, oropharynx normal Respiratory: normal respiratory effort, lungs clear to auscultation Cardiovascular: RRR, no murmur, no edema Gastrointestinal (Abdomen): normal bowel sounds, soft, nontender, no hepatosplenomegaly Musculoskeletal: R ankle fracture s/p surgical repair 12/05/20, leg wrapped Skin: no rashes, warm and dry no jaundice Psychiatric: A+Ox3, euthymic affect Lymphatic: no lymphedema [facility] Vital Signs (Past 12 Hours) Vital Signs Temp Pulse Resp BP Pulse Ox 12/16/20 07:49 37.1 C 76 16 95/58 L 95 12/15/20 22:39 36.6 C 98 H 18 104/67 98
[2020-12-16 12:09] LABS: Hematocrit (blood only) 25.9 % (37-47); Hemoglobin 8.8 g/dL (12.0-16.0); Mean Corpuscular Hemoglobin 30.1 pg (25-34); Mean Corpuscular Volume 88.7 fL (80-100); Platelet Count 318 K/uL (130-400); RDW Coefficient of Variation 13.2 % (11.5-14.5); Red Blood Count 2.92 M/uL (4.2-5.4); White Blood Count 5.41 K/uL (4.8-10.8)
[2020-12-16 12:21] LABS: INR 2.9 (0.9-1.1); Prothrombin Time 27.2 Seconds (9.0-12.0)
[2020-12-16 13:06] LABS: Ferritin 176.5 ng/ml (8-388)
[2020-12-16 13:29] LABS: Folate (Folic Acid) > 20.00 ng/ml (>5.38); Vitamin B12 > 2000 pg/ml (193-986)
--- NOTE | 2020-12-16 14:11 | Hospitalist Progress Note ---
Date of Service December 16, 2020 Assessment & Plan (1) Colitis: Presented with crampy left sided abd pain, found to have some thickened loops of small bowel and most pronounced distal descending colon to rectum colitis Most likely ischemic colitis given hypotension on admission Pain now much improved, leukocytosis resolved, remains afebrile, No BRBPR but hgb dropped to 8.8 and remained stable on repeat check - COVID 19 is negative -continue IVFs and increase to 125mLs/hr for continued low-normal BPs -continue unasyn IV -follow BCxs Appreciate GI consult-plan for colonscopy and EGD in 6 weeks - adv diet to clears -follow CBC, CMP (2) Elevated LFTs: elevated on admission AST and ALT,Alk phos INR elevated 4.[address] Likely shock liver from hypotension, now improving continue to support BP follow LFTs (3) Hypotension: as above, now improving unclear what provoked this but perhaps due to poor po intake from recent surgery and taking pain meds hypotension left to MATILDE, shock liver, and ischemic colitis -holding home lisinopril and Coreg (4) Anemia: Hgb dropped to 8.8 from 11.9 yesterday and stable on repeat check No obvious bleeding from anywhere, may be some hemodilutional component INR elevated -give Vit K 2.5mg IV x 1 now repeat hgb stable and INR down to 2.9 hold coumadin, watch for GI bleeding especially in setting of ischemic colitis follow CBC in AM needs EGD and colonoscopy in 6 weeks as outpt (5) MATILDE (acute kidney injury): 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 Toth as an outpt in surgical center -Has been taking pain control with oxycodone at home, holding this medication for now -continue APAP prn (8) Lupus anticoagulant disorder: as per review of outpt records, on coumadin with h/o CVA holding coumadin as above for anemia, elevated INR (9) IUD (intrauterine device) in place: noted on CT scan pt forgot she still had it in place advised to have removed by PCP at next visit also many years overdue for a pap smear-can do as outpt (10) Recurrent cold sores: with one acute outbreak on lower lip give Valtrex 1000mg po bid x 1 day (11) Stroke: -History of such in 2008, maintained on Coumadin, ASA -[facility] Coumadin clinic follows for results has Lupus AC (12) Hypertension: -Patient presented hypotensive with BP in the 80s/50s continuing IVFs as above -Holding antihypertensives including carvedilol and lisinopril for now (13) Hyperlipidemia: -Continue statin therapy (14) DVT prophylaxis: holding coumadin Dispo-continued stay Admission and Anticipated Discharge Date Admission Date: December 15, 2020 Subjective Pt feeling better, no abd pain, no nausea or vomiting, sarah clears diet. No CP or SOB. Denies any previous black or red blood stools. Denies hematemesis. Reports a cold sore started on her lower lip about 2-3 days ago. Has never had a colonoscopy or EGD. Has had an IUD in pace for many years and forgot she had it. Has not had menses in many years. Had previous menorrhagia and was told she was anemic at that point. No trouble with urination Review of Systems Review of Systems: All systems reviewed & are unremarkable except as noted in HPI & below Physical Exam Constitutional: WD/WN, vitals as above Eyes: + anicteric sclerae ENMT: external ear and nose normal, oropharynx normal Mouth: + lip abnormality (lower lip with crusted raised 4mm lesion) Neck: trachea midline, no thyromegaly Respiratory: normal respiratory effort, lungs clear to auscultation Cardiovascular: RRR, no murmur, no edema Chest (Breasts): Chest: normal inspection of chest Gastrointestinal (Abdomen): normal bowel sounds, soft, nontender, no hepatosplenomegaly Musculoskeletal: Extremities: extremities normal to inspection; no cyanosis and no clubbing Skin: no rashes, warm and dry Neurologic: moves all extremities and awake; no focal motor deficits Psychiatric: A+Ox3, euthymic affect Lymphatic: no lymphedema Results & Data Results & Data ([place]) Vital Signs (Past 12 Hours) Vital Signs Temp Pulse Resp BP Pulse Ox 12/16/20 14:04 84 18 107/65 97 12/16/20 07:49 37.1 C 76 16 95/58 L 95 Laboratory Results 12/16/20 12/16/20 12/16/20 Range/Units 11:51 11:51 11:51 WBC (4.8-10.8) K/uL RBC (4.2-5.4) M/uL Hgb (12.0-16.0) g/dL Hct (37-47) % MCV (80-100) fL MCH (25-34) pg MCHC (32-36) g/dL RDW Std Deviation (36.4-46.3) fL RDW Coeff of Anibal (11.5-14.5) % Plt Count (130-400) K/uL MPV (7.4-10.4) fL PT 27.2 H (9.0-12.0) Seconds INR 2.9 H (0.9-1.1) Sodium (136-145) mmol/L Potassium (3.5-5.1) mmol/L Chloride (98-107) mmol/L Carbon Dioxide (21-32) mmol/L Anion Gap (3-11) BUN (7-18) mg/dl Creatinine (0.6-1.2) mg/dl Est Cr Clr Drug Dosing ml/min Est GFR ( Amer) Est GFR (Non-Af Amer) BUN/Creatinine Ratio (10-20) Glucose (70-99) mg/dl Calcium (8.5-10.1) mg/dl Iron 30 L (35-150) mcg/dl Transferrin 155 L (200-360) mg/dl Transferrin % Sat 14 L (15-50) % Ferritin 176.5 (8-388) ng/ml Total Bilirubin (0.2-1) mg/dl Direct Bilirubin (0-0.2) mg/dl AST (15-37) U/L ALT (12-78) U/L Alkaline Phosphatase (45-117) U/L Total Protein (6.4-8.2) gm/dl Albumin (3.4-5.0) gm/dl Globulin (2.5-4.0) gm/dl Albumin/Globulin Ratio (0.9-2) Vitamin B12 > 2000 H (193-986) pg/ml Folate > 20.00 (>5.38) ng/ml COVID-19 Eval Order SARS-CoV-2, RNA, NAAT (NEGATIVE) 12/16/20 12/16/20 12/16/20 Range/Units 11:51 06:39 06:39 WBC 5.41 (4.8-10.8) K/uL RBC 2.92 L (4.2-5.4) M/uL Hgb 8.8 L (12.0-16.0) g/dL Hct 25.9 L (37-47) % MCV 88.7 (80-100) fL MCH 30.1 (25-34) pg MCHC 34.0 (32-36) g/dL RDW Std Deviation 43.0 (36.4-46.3) fL RDW Coeff of Anibal 13.2 (11.5-14.5) % Plt Count 318 (130-400) K/uL MPV 9.0 (7.4-10.4) fL PT 40.6 H (9.0-12.0) Seconds INR 4.5 H (0.9-1.1) Sodium 140 (136-145) mmol/L Potassium 4.7 (3.5-5.1) mmol/L Chloride 113 H (98-107) mmol/L Carbon Dioxide 20 L (21-32) mmol/L Anion Gap 7.0 (3-11) BUN 19 H (7-18) mg/dl Creatinine 1.24 H D (0.6-1.2) mg/dl Est Cr Clr Drug Dosing 38.5 ml/min Est GFR ( Amer) 52.4 Est GFR (Non-Af Amer) 45.2 BUN/Creatinine Ratio 15.6 (10-20) Glucose 60 L (70-99) mg/dl Calcium 8.4 L D (8.5-10.1) mg/dl Iron (35-150) mcg/dl Transferrin (200-360) mg/dl Transferrin % Sat (15-50) % Ferritin (8-388) ng/ml Total Bilirubin 0.5 (0.2-1) mg/dl Direct Bilirubin 0.2 (0-0.2) mg/dl AST 60 H (15-37) U/L ALT 67 (12-78) U/L Alkaline Phosphatase 115 (45-117) U/L Total Protein 5.3 L D (6.4-8.2) gm/dl Albumin 2.4 L (3.4-5.0) gm/dl Globulin 2.9 (2.5-4.0) gm/dl Albumin/Globulin Ratio 0.8 L (0.9-2) Vitamin B12 (193-986) pg/ml Folate (>5.38) ng/ml COVID-19 Eval Order SARS-CoV-2, RNA, NAAT (NEGATIVE) 12/16/20 12/15/20 12/15/20 Range/Units 06:39 14:40 14:40 WBC 6.24 (4.8-10.8) K/uL RBC 2.95 L (4.2-5.4) M/uL Hgb 8.8 L D (12.0-16.0) g/dL Hct 26.4 L (37-47) % MCV 89.5 (80-100) fL MCH 29.8 (25-34) pg MCHC 33.3 (32-36) g/dL RDW Std Deviation 43.5 (36.4-46.3) fL RDW Coeff of Anibal 13.4 (11.5-14.5) % Plt Count 342 (130-400) K/uL MPV 9.1 (7.4-10.4) fL PT (9.0-12.0) Seconds INR (0.9-1.1) Sodium (136-145) mmol/L Potassium (3.5-5.1) mmol/L Chloride (98-107) mmol/L Carbon Dioxide (21-32) mmol/L Anion Gap (3-11) BUN (7-18) mg/dl Creatinine (0.6-1.2) mg/dl Est Cr Clr Drug Dosing ml/min Est GFR ( Amer) Est GFR (Non-Af Amer) BUN/Creatinine Ratio (10-20) Glucose (70-99) mg/dl Calcium (8.5-10.1) mg/dl Iron (35-150) mcg/dl Transferrin (200-360) mg/dl Transferrin % Sat (15-50) % Ferritin (8-388) ng/ml Total Bilirubin (0.2-1) mg/dl Direct Bilirubin (0-0.2) mg/dl AST (15-37) U/L ALT (12-78) U/L Alkaline Phosphatase (45-117) U/L Total Protein (6.4-8.2) gm/dl Albumin (3.4-5.0) gm/dl Globulin (2.5-4.0) gm/dl Albumin/Globulin Ratio (0.9-2) Vitamin B12 (193-986) pg/ml Folate (>5.38) ng/ml COVID-19 Eval [facility] SARS-CoV-2, RNA, NAAT NEGATIVE (NEGATIVE) PG Care Time/CCT Total # of Minutes Spent Total Time Spent with Patient: Total time spent is greater than 50% in coordination of care (as documented) at patient's floor/unit and/or counseling patient: Coding Level of Care Code 94859 Subseq Hosp Care Lvl 3 Diagnoses Colitis K52.9 Elevated LFTs R79.89 Hypotension I95.9 Hypotension type: unspecified hypotension type Anemia D64.9 MATILDE (acute kidney injury) N17.9 Supratherapeutic INR R79.1 Ankle fracture S82.899A Lupus anticoagulant disorder D68.62 IUD (intrauterine device) in place Z97.5 Recurrent cold sores B00.1 Stroke I63.9 Hypertension I10 Hyperlipidemia E78.5 DVT prophylaxis Z29.9 (1) Hypotension Hypotension type: unspecified hypotension type Qualified Code(s): I95.9 - Hyp otension, unspecified
[2020-12-16] MEDS ORDERED: WARFARIN SOD 2.5 MG TAB PO SCH (16:00)
[2020-12-16] MEDS: ACETAMINOPHEN 500 MG TAB PO PRN (18:48)
[2020-12-16] MEDS: valACYclovir HCL 500 MG TABLET PO SCH (20:21)
[2020-12-16] MEDS: ATORVASTATIN 40 MG TAB PO SCH (20:21)
[2020-12-17] MEDS: AMPICILLIN/SULBACTAM SOD 3,000 MG in 0.9 % SODIUM CHLORIDE 100 ML IV SCH ×3 (05:42→17:52)
[2020-12-17 06:31] LABS: Hematocrit (blood only) 25.1 % (37-47); Hemoglobin 8.5 g/dL (12.0-16.0); Mean Corpuscular Hemoglobin 29.7 pg (25-34); Mean Corpuscular Hgb Conc 33.9 g/dL (32-36); Mean Corpuscular Volume 87.8 fL (80-100); Mean Platelet Volume 9.1 fL (7.4-10.4); Platelet Count 299 K/uL (130-400); RDW Coefficient of Variation 13.1 % (11.5-14.5); RDW Standard Deviation 42.2 fL (36.4-46.3); Red Blood Count 2.86 M/uL (4.2-5.4); White Blood Count 3.53 K/uL (4.8-10.8)
[2020-12-17 06:46] LABS: INR 1.6 (0.9-1.1); Prothrombin Time 15.5 Seconds (9.0-12.0)
[2020-12-17 07:24] LABS: Albumin Globulin Ratio 0.9 (0.9-2); Albumin Level 2.5 gm/dl (3.4-5.0); BUN Creatinine Ratio 12.6 (10-20); Bilirubin,Total 0.9 mg/dl (0.2-1); Calcium 8.2 mg/dl (8.5-10.1); Creatinine Clr Calc Pharmacy 47.8 ml/min; Est GFR (Non-African American) 58.7; Globulin 2.7 gm/dl (2.5-4.0); Potassium 4.1 mmol/L (3.5-5.1); Total Protein 5.2 gm/dl (6.4-8.2)
[2020-12-17] MEDS: valACYclovir HCL 500 MG TABLET PO SCH (08:36)
[2020-12-17] MEDS: ZINC SULFATE 220 MG CAPSULE PO SCH (10:22)
[2020-12-17] MEDS: CHOLECALCIFEROL 1,000 UNITS 25 MCG TAB PO SCH (10:22)
--- NOTE | 2020-12-17 14:21 | Hospitalist Progress Note ---
Date of Service December 17, 2020 Assessment & Plan (1) Colitis: Presented with crampy left sided abd pain, found to have some thickened loops of small bowel and most pronounced distal descending colon to rectum colitis Most likely ischemic colitis given hypotension on admission Pain now improved but had repeat less severe episode of pain on 12/17 that is now improved; leukocytosis resolved, remains afebrile, No BRBPR but hgb dropped to 8.8 after admission and remained stable on repeat checks - COVID 19 is negative Still a little dry, HCO3 low at 19, non AG MA, BPs still soft Gucose low this AM , now tolerating clears-check accuchecks qchs -restart IVFs with NS 125mLs/hr for continued low-normal BPs -continue unasyn IV -follow BCxs-NGTD Appreciate GI consult-plan for colonoscopy and EGD in 6 weeks - adv diet to full liquids -follow CBC, CMP in AM (2) Elevated LFTs: elevated on admission AST and ALT,Alk phos and now improving INR elevated 4.6 and now down to 1.6 after IV Vit K 2.[address] Likely shock liver from hypotension, now improving continue to support BP follow LFTs (3) Hypotension: as above, now improving unclear what provoked this but perhaps due to poor po intake from recent surgery and taking pain meds hypotension left to MATILDE, shock liver, and ischemic colitis -holding home lisinopril and Coreg (4) Anemia: Hgb dropped to 8.8 from 11.9 on admission and stable on repeat check No obvious bleeding from anywhere, may be some hemodilutional component but possible had GIB from ischemic colitis INR elevated as above and now improved Ok to restart coumadin, watch for GI bleeding especially in setting of ischemic colitis follow CBC in AM needs EGD and colonoscopy in 6 weeks as outpt (5) MATILDE (acute kidney injury): 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 Toth as an outpt in surgical center -Has been taking pain control with oxycodone at home, holding this medication for now -continue APAP prn -to f/u with Ortho on Dec 20 (8) Lupus anticoagulant disorder: as per review of outpt records, on coumadin with h/o CVA held coumadin as above for anemia, elevated INR, but now restarting (9) IUD (intrauterine device) in place: noted on CT scan pt forgot she still had it in place, but outpt PCP notes say it is [employer] and [employer] recommended it remain in place? 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 Given anemia, consider holding after discharge until has EGD as outpt (12) Hypertension: -Patient presented hypotensive with BP in the 80s/50s BPs still soft but improved -Holding antihypertensives including carvedilol and lisinopril for now restart IVFs today x 1 L (13) Hyperlipidemia: -Continue statin therapy (14) DVT prophylaxis: coumadin Dispo-continued stay Admission and Anticipated Discharge Date Admission Date: December 15, 2020 Subjective Pt had some left lower quadrant abd pains earlier today that were crampy and now improved. BPs still running soft. Is drinking clears. Denies lightheadedness, umberto pain, SOB. Had a BM lst evening and no blood. Feels tired, didn't sleep last night. Review of Systems Review of Systems: All systems reviewed & are unremarkable except as noted in HPI & below Physical Exam Constitutional: WD/WN, vitals as above Eyes: + anicteric sclerae ENMT: Mouth: + lip abnormality (lower lip with crusted raised 4mm lesion) Neck: trachea midline, no thyromegaly Respiratory: normal respiratory effort, lungs clear to auscultation Cardiovascular: RRR, no murmur, no edema Chest (Breasts): Chest: normal inspection of chest Gastrointestinal (Abdomen): Inspection/Auscultation: normal bowel sounds; abdo men not distended Percussion/Palpation: + abdomen tender (mild in LLQ w/o guarding) and abdomen soft; no guarding Musculoskeletal: Extremities: extremities normal to inspection; no cyanosis and no clubbing Skin: no rashes, warm and dry Neurologic: moves all extremities and awake; no focal motor deficits Psychiatric: A+Ox3, euthymic affect Lymphatic: no lymphedema Results & Data Results & Data ([facility]) Vital Signs (Past 12 Hours) Vital Signs Temp Pulse Resp BP Pulse Ox 12/17/20 07:34 36.5 C 75 16 99/57 L 95 Laboratory Results 12/17/20 12/17/20 12/17/20 Range/Units 05:56 05:56 05:56 WBC 3.53 L (4.8-10.8) K/uL RBC 2.86 L (4.2-5.4) M/uL Hgb 8.5 L (12.0-16.0) g/dL Hct 25.1 L (37-47) % MCV 87.8 (80-100) fL MCH 29.7 (25-34) pg MCHC 33.9 (32-36) g/dL RDW Std Deviation 42.2 (36.4-46.3) fL RDW Coeff of Anibal 13.1 (11.5-14.5) % Plt Count 299 (130-400) K/uL MPV 9.1 (7.4-10.4) fL PT 15.5 H (9.0-12.0) Seconds INR 1.6 H (0.9-1.1) Sodium 142 (136-145) mmol/L Potassium 4.1 (3.5-5.1) mmol/L Chloride 114 H (98-107) mmol/L Carbon Dioxide 19 L (21-32) mmol/L Anion Gap 9.0 (3-11) BUN 13 (7-18) mg/dl Creatinine 1.00 (0.6-1.2) mg/dl Est Cr Clr Drug Dosing 47.8 ml/min Est GFR ( Amer) 68.0 Est GFR (Non-Af Amer) 58.7 BUN/Creatinine Ratio 12.6 (10-20) Glucose 54 L (70-99) mg/dl Calcium 8.2 L (8.5-10.1) mg/dl Total Bilirubin 0.9 (0.2-1) mg/dl AST 54 H (15-37) U/L ALT 61 (12-78) U/L Alkaline Phosphatase 117 (45-117) U/L Total Protein 5.2 L (6.4-8.2) gm/dl Albumin 2.5 L (3.4-5.0) gm/dl Globulin 2.7 (2.5-4.0) gm/dl Albumin/Globulin Ratio 0.9 (0.9-2) TSH (0.300-4.500) uIu/ml 12/16/20 Range/Units 11:51 WBC (4.8-10.8) K/uL RBC (4.2-5.4) M/uL Hgb (12.0-16.0) g/dL Hct (37-47) % MCV (80-100) fL MCH (25-34) pg MCHC (32-36) g/dL RDW Std Deviation (36.4-46.3) fL RDW Coeff of Anibal (11.5-14.5) % Plt Count (130-400) K/uL MPV (7.4-10.4) fL PT (9.0-12.0) Seconds INR (0.9-1.1) Sodium (136-145) mmol/L Potassium (3.5-5.1) mmol/L Chloride (98-107) mmol/L Carbon Dioxide (21-32) mmol/L Anion Gap (3-11) BUN (7-18) mg/dl Creatinine (0.6-1.2) mg/dl Est Cr Clr Drug Dosing ml/min Est GFR ( Amer) Est GFR (Non-Af Amer) BUN/Creatinine Ratio (10-20) Glucose (70-99) mg/dl Calcium (8.5-10.1) mg/dl Total Bilirubin (0.2-1) mg/dl AST (15-37) U/L ALT (12-78) U/L Alkaline Phosphatase (45-117) U/L Total Protein (6.4-8.2) gm/dl Albumin (3.4-5.0) gm/dl Globulin (2.5-4.0) gm/dl Albumin/Globulin Ratio (0.9-2) TSH 1.470 (0.300-4.500) uIu/ml PG Care Time/CCT Total # of Minutes Spent Total Time Spent with Patient: Total time spent is greater than 50% in coordination of care (as documented) at patient's floor/unit and/or counseling patient: Coding Level of Care Code 72166 Subseq Hosp Care Lvl 3 Diagnoses Colitis K52.9 Elevated LFTs R79.89 Hypotension I95.9 Hypotension type: unspecified hypotension type Anemia D64.9 MATILDE (acute kidney injury) N17.9 Supratherapeutic INR R79.1 Ankle fracture S82.899A Lupus anticoagulant disorder D68.62 IUD (intrauterine device) in place Z97.5 Recurrent cold sores B00.1 Stroke I63.9 Hypertension I10 Hyperlipidemia E78.5 DVT prophylaxis Z29.9 (1) Hypotension Hypotension type: unspecified hypotension type Qualified Code(s): I95.9 - Hypotension, unspecified
[2020-12-17] MEDS ORDERED: SODIUM CHLORIDE 0.9% 1000ML 1,000 ML IV SCH (14:30)
[2020-12-17] MEDS: WARFARIN SOD 2.5 MG TAB PO SCH (16:02)
[2020-12-17] MEDS: ATORVASTATIN 40 MG TAB PO SCH (19:58)
[2020-12-18] MEDS: AMPICILLIN/SULBACTAM SOD 3,000 MG in 0.9 % SODIUM CHLORIDE 100 ML IV SCH ×4 (00:04→17:40)
[2020-12-18 06:09] LABS: Hematocrit (blood only) 25.1 % (37-47); Hemoglobin 8.6 g/dL (12.0-16.0); Mean Corpuscular Hgb Conc 34.3 g/dL (32-36); Mean Corpuscular Volume 87.5 fL (80-100); Mean Platelet Volume 9.2 fL (7.4-10.4); Platelet Count 292 K/uL (130-400); RDW Coefficient of Variation 13.3 % (11.5-14.5); RDW Standard Deviation 42.7 fL (36.4-46.3); Red Blood Count 2.87 M/uL (4.2-5.4); White Blood Count 3.42 K/uL (4.8-10.8)
[2020-12-18 06:21] LABS: INR 1.5 (0.9-1.1); Prothrombin Time 14.6 Seconds (9.0-12.0)
[2020-12-18 06:39] LABS: Albumin Level 2.5 gm/dl (3.4-5.0); BUN Creatinine Ratio 9.8 (10-20); Calcium 8.5 mg/dl (8.5-10.1); Creatinine Clr Calc Pharmacy 47.3 ml/min; Est GFR (African American) 67.2; Potassium 3.8 mmol/L (3.5-5.1)
[2020-12-18 06:41] LABS: Albumin Globulin Ratio 0.9 (0.9-2); Bilirubin,Total 0.7 mg/dl (0.2-1); Globulin 2.9 gm/dl (2.5-4.0); Total Protein 5.4 gm/dl (6.4-8.2)
[2020-12-18] MEDS: ZINC SULFATE 220 MG CAPSULE PO SCH (08:12)
[2020-12-18] MEDS: CHOLECALCIFEROL 1,000 UNITS 25 MCG TAB PO SCH (08:13)
[2020-12-18] MEDS: ACETAMINOPHEN 500 MG TAB PO PRN ×2 (08:15→20:27)
--- NOTE | 2020-12-18 13:11 | Hospitalist Progress Note ---
Date of Service December 18, 2020 Assessment & Plan (1) Colitis: Presented with crampy left sided abd pain, found to have some thickened loops of small bowel and most pronounced distal descending colon to rectum colitis Most likely ischemic colitis given hypotension on admission Pain now greatly improve to resolved; abd nontender, no hematemesis, leukocytosis resolved, remains afebrile, No BRBPR but hgb dropped to 8.8 after admission and remained stable on repeat checks C. diff test not performed due to formed stool. Yersinia is pending, Stool cx pending BCxs NGTD - COVID 19 is negative BPs improved after IVFs. No longer dehydrated. Non AG met acidosis now resolved Hypoglycemia resolved, sarah full liquids diet -continue unasyn IV here and convert to Augmentin on dc for 10 days total Appreciate GI consult-plan for colonoscopy and EGD in [address] Sal[facility] - adv diet to low fiber -follow CBC, CMP in AM (2) Elevated LFTs: elevated on admission AST and ALT,Alk phos and now improving INR elevated 4.6 and then down to 1.6 after IV Vit K 2.[address] Likely shock liver from hypotension, now improving continue to support BP follow LFTs (3) Hypotension: as above, now resolved with IVFs, abx, tx of colitis unclear what provoked this but perhaps due to poor po intake from recent surgery and taking pain meds hypotension led to MATILDE, shock liver, and ischemic colitis -continue holding home lisinopril and Coreg (4) Anemia: Hgb dropped to 8.6 from 11.9 on admission and stable on repeat check No obvious bleeding from anywhere, may be some hemodilutional component but possible had GIB from ischemic colitis INR elevated as above and now improved Unclear source of anemia. Transferrin sat low at 14%. B12 and folate normal Have since restarted coumadin, watch for GI bleeding especially in setting of ischemic colitis follow CBC in AM needs EGD and colonoscopy in 6 weeks as outpt (5) MATILDE (acute kidney injury): Acute kidney failure, POA staff physical therapy assistant 1.84 on admission and now improved to 1.00 with IVFs ATN from hypotension follow BMP holding lisinopril (6) Supratherapeutic INR: as above, INR 4.6, could be from shock liver in setting of coumadin use vit K given on 12/16 INR down to 1.5 now follow INR in AM, restarted coumadin given h/o CVA and hypercoagulable disorder (7) Ankle fracture: with Right trimalleolar fx, with some pain but not severe -Operated on 12/05/[address] Toth as an outpt in surgical center -Has been taking pain control with oxycodone at home, holding this medication for now -continue APAP prn -to f/u with Ortho as outpt on Dec 20 (8) Lupus anticoagulant disorder: as per review of outpt records, on coumadin with h/o CVA held coumadin as above for anemia, elevated INR, but now restarted (9) IUD (intrauterine device) in place: noted on CT scan pt forgot she still had it in place, but outpt PCP notes say it is [employer] and [employer] DES[employer] recommended it remain in place? f/u with PCP and consider referral to [employer] also many years overdue for a pap smear-can do as outpt (10) Recurrent cold sores: with one acute outbreak on lower lip treated with Valtrex 1000mg po bid x 1 day (11) Stroke: -History of such in 2008, maintained on Coumadin, ASA -[facility] Coumadin clinic follows for results has Lupus AC Unclear if definitely needs ASA? Given anemia, consider holding after discharge until has EGD as outpt (12) Hypertension: -Patient presented hypotensive with BP in the 80s/50s BPs improved -Holding antihypertensives including carvedilol and lisinopril for now (13) Hyperlipidemia: -Continue statin therapy (14) DVT prophylaxis: coumadin Dispo-continued stay, adv diet and if sarah diet without abd pain, hgb stable, can dc to home on Saturday Needs outpt GI EGD/Colonoscopy scheduled in 6 weeks with [facility] GI Admission and Anticipated Discharge Date Admission Date: December 15, 2020 Subjective Feeling much better today, sarah full liquids diet. Abd pain is pretty much gone today. Had multiple BMs yesterday but formed, nonbloody. Has some pain in right ankle. No CP or SOB. Review of Systems Review of Systems: All systems reviewed & are unremarkable except as noted in HPI & below no dysuria Physical Exam Constitutional: WD/WN, vitals as above Eyes: + anicteric sclerae ENMT: Mouth: + lip abnormality (lower lip with crusted raised 4mm lesion) Neck: trachea midline, no thyromegaly Respiratory: normal respiratory effort, lungs clear to auscultation Cardiovascular: RRR, no murmur, no edema Chest (Breasts): Chest: normal inspection of chest Gastrointestinal (Abdomen): normal bowel sounds, soft, nontender, no hepatosplenomegaly Musculoskeletal: Extremities: + extremities abnormal to inspection (right leg in splint with OSWALD wrap.NVI distally), no cyanosis and no clubbing Skin: no rashes, warm and dry Neurologic: moves all extremities and awake; no focal motor deficits Psychiatric: A+Ox3, euthymic affect Lymphatic: no lymphedema Results & Data Results & Data ([facility]) Vital Signs (Past 12 Hours) Vital Signs Temp Pulse Resp BP BP Pulse Ox 12/18/20 11:00 36.8 C 81 14 115/61 96 12/18/20 07:46 36.9 C 81 18 119/70 97 12/18/20 04:35 36.5 C 79 14 126/74 95 Laboratory Results 12/18/20 12/18/20 12/18/20 Range/Units 12:01 08:11 05:28 WBC (4.8-10.8) K/uL RBC (4.2-5.4) M/uL Hgb (12.0-16.0) g/dL Hct (37-47) % MCV (80-100) fL MCH (25-34) pg MCHC (32-36) g/dL RDW Std Deviation (36.4-46.3) fL RDW Coeff of Anibal (11.5-14.5) % Plt Count (130-400) K/uL MPV (7.4-10.4) fL PT (9.0-12.0) Seconds INR (0.9-1.1) Sodium 143 (136-145) mmol/L Potassium 3.8 (3.5-5.1) mmol/L Chloride 114 H (98-107) mmol/L Carbon Dioxide 21 (21-32) mmol/L Anion Gap 8.0 (3-11) BUN 10 (7-18) mg/dl Creatinine 1.01 (0.6-1.2) mg/dl Est Cr Clr Drug Dosing 47.3 ml/min Est GFR ( Amer) 67.2 Est GFR (Non-Af Amer) 58.0 BUN/Creatinine Ratio 9.8 L (10-20) Glucose 72 (70-99) mg/dl POC Glucose 83 85 (70-99) mg/dl Calcium 8.5 (8.5-10.1) mg/dl Total Bilirubin 0.7 (0.2-1) mg/dl AST 48 H (15-37) U/L ALT 57 (12-78) U/L Alkaline Phosphatase 116 (45-117) U/L Total Protein 5.4 L (6.4-8.2) gm/dl Albumin 2.5 L (3.4-5.0) gm/dl Globulin 2.9 (2.5-4.0) gm/dl Albumin/Globulin Ratio 0.9 (0.9-2) Stl C. diff Tox B Gene (Neg) Stl Yersinia Cult Final 12/18/20 12/18/20 12/18/20 Range/Units 05:28 05:28 01:08 WBC 3.42 L (4.8-10.8) K/uL RBC 2.87 L (4.2-5.4) M/uL Hgb 8.6 L (12.0-16.0) g/dL Hct 25.1 L (37-47) % MCV 87.5 (80-100) fL MCH 30.0 (25-34) pg MCHC 34.3 (32-36) g/dL RDW Std Deviation 42.7 (36.4-46.3) fL RDW Coeff of Anibal 13.3 (11.5-14.5) % Plt Count 292 (130-400) K/uL MPV 9.2 (7.4-10.4) fL PT 14.6 H (9.0-12.0) Seconds INR 1.5 H (0.9-1.1) Sodium (136-145) mmol/L Potassium (3.5-5.1) mmol/L Chloride (98-107) mmol/L Carbon Dioxide (21-32) mmol/L Anion Gap (3-11) BUN (7-18) mg/dl Creatinine (0.6-1.2) mg/dl Est Cr Clr Drug Dosing ml/min Est GFR ( Amer) Est GFR (Non-Af Amer) BUN/Creatinine Ratio (10-20) Glucose (70-99) mg/dl POC Glucose (70-99) mg/dl Calcium (8.5-10.1) mg/dl Total Bilirubin (0.2-1) mg/dl AST (15-37) U/L ALT (12-78) U/L Alkaline Phosphatase (45-117) U/L Total Protein (6.4-8.2) gm/dl Albumin (3.4-5.0) gm/dl Globulin (2.5-4.0) gm/dl Albumin/Globulin Ratio (0.9-2) Stl C. diff Tox B Gene (Neg) Stl Yersinia Cult Final Pending 12/18/20 12/17/20 12/17/20 Range/Units 01:08 20:31 16:57 WBC (4.8-10.8) K/uL RBC (4.2-5.4) M/uL Hgb (12.0-16.0) g/dL Hct (37-47) % MCV (80-100) fL MCH (25-34) pg MCHC (32-36) g/dL RDW Std Deviation (36.4-46.3) fL RDW Coeff of Anibal (11.5-14.5) % Plt Count (130-400) K/uL MPV (7.4-10.4) fL PT (9.0-12.0) Seconds INR (0.9-1.1) Sodium (136-145) mmol/L Potassium (3.5-5.1) mmol/L Chloride (98-107) mmol/L Carbon Dioxide (21-32) mmol/L Anion Gap (3-11) BUN (7-18) mg/dl Creatinine (0.6-1.2) mg/dl Est Cr Clr Drug Dosing ml/min Est GFR ( Amer) Est GFR (Non-Af Amer) BUN/Creatinine Ratio (10-20) Glucose (70-99) mg/dl POC Glucose 72 106 H (70-99) mg/dl Calcium (8.5-10.1) mg/dl Total Bilirubin (0.2-1) mg/dl AST (15-37) U/L ALT (12-78) U/L Alkaline Phosphatase (45-117) U/L Total Protein (6.4-8.2) gm/dl Albumin (3.4-5.0) gm/dl Globulin (2.5-4.0) gm/dl Albumin/Globulin Ratio (0.9-2) Stl C. diff Tox B Gene (Neg) Stl Yersinia Cult Final 12/17/20 12/17/20 Range/Units 14:40 14:32 WBC (4.8-10.8) K/uL RBC (4.2-5.4) M/uL Hgb (12.0-16.0) g/dL Hct (37-47) % MCV (80-100) fL MCH (25-34) pg MCHC (32-36) g/dL RDW Std Deviation (36.4-46.3) fL RDW Coeff of Anibal (11.5-14.5) % Plt Count (130-400) K/uL MPV (7.4-10.4) fL PT (9.0-12.0) Seconds INR (0.9-1.1) Sodium (136-145) mmol/L Potassium (3.5-5.1) mmol/L Chloride (98-107) mmol/L Carbon Dioxide (21-32) mmol/L Anion Gap (3-11) BUN (7-18) mg/dl Creatinine (0.6-1.2) mg/dl Est Cr Clr Drug Dosing ml/min Est GFR ( Amer) Est GFR (Non-Af Amer) BUN/Creatinine Ratio (10-20) Glucose (70-99) mg/dl POC Glucose 72 67 L* (70-99) mg/dl Calcium (8.5-10.1) mg/dl Total Bilirubin (0.2-1) mg/dl AST (15-37) U/L ALT (12-78) U/L Alkaline Phosphatase (45-117) U/L Total Protein (6.4-8.2) gm/dl Albumin (3.4-5.0) gm/dl Globulin (2.5-4.0) gm/dl Albumin/Globulin Ratio (0.9-2) Stl C. diff Tox B Gene (Neg) Stl Yersinia Cult Final PG Care Time/CCT Total # of Minutes Spent Total Time Spent with Patient: Total time spent is greater than 50% in coordination of care (as documented) at patient's floor/unit and/or counseling patient: Coding Level of Care Code 49449 Subseq Hosp Care Lvl 2 Diagnoses Colitis K52.9 Elevated LFTs R79.89 Hypotension I95.9 Hypotension type: unspecified hypotension type Anemia D64.9 MATILDE (acute kidney injury) N17.9 Supratherapeutic INR R79.1 Ankle fracture S82.899A Lupus anticoagulant disorder D68.62 IUD (intrauterine device) in place Z97.5 Recurrent cold sores B00.1 Stroke I63.9 Hypertension I10 Hyperlipidemia E78.5 DVT prophylaxis Z29.9 (1) Hypotension Hypotension type: unspecified hypotension type Qualified Code(s): I95.9 - Hypotension, unspecified
[2020-12-18] MEDS: WARFARIN SOD 2.5 MG TAB PO SCH (15:41)
[2020-12-18] MEDS: ATORVASTATIN 40 MG TAB PO SCH (20:24)
[2020-12-19] MEDS: AMPICILLIN/SULBACTAM SOD 3,000 MG in 0.9 % SODIUM CHLORIDE 100 ML IV SCH ×3 (01:19→11:50)
[2020-12-19 06:26] LABS: Basophils # (auto) 0.01 K/uL (0-0.2); Basophils % (auto) 0.4 %; Eosinophils # (auto) 0.12 K/uL (0-0.5); Eosinophils % (auto) 4.3 %; Hematocrit (blood only) 27.8 % (37-47); Hemoglobin 9.4 g/dL (12.0-16.0); Immature Granulocytes # (auto) 0.01 K/uL (0.00-0.02); Immature Granulocytes % (auto) 0.4 %; Lymphocytes # (auto) 0.71 K/uL (1.2-3.4); Lymphocytes % (auto) 25.6 %; Mean Corpuscular Hemoglobin 29.5 pg (25-34); Mean Corpuscular Hgb Conc 33.8 g/dL (32-36); Mean Corpuscular Volume 87.1 fL (80-100); Mean Platelet Volume 9.2 fL (7.4-10.4); Monocytes % (auto) 14.4 %; Neutrophils # (auto) 1.52 K/uL (1.4-6.5); Neutrophils % (auto) 54.9 %; Platelet Count 293 K/uL (130-400); RDW Coefficient of Variation 13.3 % (11.5-14.5); RDW Standard Deviation 42.8 fL (36.4-46.3); Red Blood Count 3.19 M/uL (4.2-5.4); White Blood Count 2.77 K/uL (4.8-10.8)
[2020-12-19 06:33] LABS: INR 1.7 (0.9-1.1); Prothrombin Time 16.8 Seconds (9.0-12.0)
[2020-12-19 06:54] LABS: Albumin Level 2.8 gm/dl (3.4-5.0); BUN Creatinine Ratio 8.1 (10-20); Calcium 8.5 mg/dl (8.5-10.1); Creatinine Clr Calc Pharmacy 43.4 ml/min; Est GFR (African American) 60.6; Est GFR (Non-African American) 52.3; Potassium 3.9 mmol/L (3.5-5.1)
[2020-12-19 06:57] LABS: Albumin Globulin Ratio 0.9 (0.9-2); Bilirubin,Total 0.7 mg/dl (0.2-1); Total Protein 5.8 gm/dl (6.4-8.2)
[2020-12-19] MEDS: ZINC SULFATE 220 MG CAPSULE PO SCH (07:20)
[2020-12-19] MEDS: CHOLECALCIFEROL 1,000 UNITS 25 MCG TAB PO SCH (07:21)
--- NOTE | 2020-12-19 09:57 | XRay Report ---
XR ankle RT min 3V routine CLINICAL HISTORY: Fracture status post internal fixation COMPARISON: 12/05/2020 DISCUSSION: There is an internally fixated trimalleolar fracture in near-normal anatomic alignment. IMPRESSION: Internally fixated trimalleolar fracture in near-normal anatomic alignment. ACT 112: Negative or not required by law. Electronically signed by: Lit Raines M.D. 12/19/2020 9:55 AM
[2020-12-19] MEDS: ACETAMINOPHEN 500 MG TAB PO PRN (10:46)
--- NOTE | 2020-12-19 10:49 | Orthopedic Consultation ---
Date of Consultation December 19, 2020 Assessment & Plan (1) Status post ORIF of fracture of ankle: S/P ORIF Right Trimalleolar Ankle Fracture by Dr Wolf on 12-05-20 1)Suture's removed, steris with adhesive applied. Covered with 4x4x and paper tape 2)Application of short leg cast with stockinette, web roll, and 4inch fiberglass 3. Patient tolerated without complaints. Remained NV intact after application. States fit was comfortable. Able to wiggle toes and bend knee. Educated on c ast care. 3)Continue NWBING R LE with walker 4)Continue DVT prophylaxis with chronic coumadin and ASA. 5)Continue ice and elevation as needed for pain and swelling 6)Continue tylenol 1000mg every 8hrs as needed for mild to moderate pain and oxycodone as prescribed as needed for severe pain 7)Cancelled appointment for 12-20 and rescheduled for 01/[address] Wolf at 3:30pm for removal of cast and xrays. 8)Patient advised to call office with questions or concerns at [phone]. Present on Admission?: Yes Supervising Physician Co-Signing Physician Notes I discuss case with Shiloh Fish PA-C and reviewed her x-rays. Agree with note as above. Coumadin for DVT prophylaxis. Remain NWB until next follow-up, 6 weeks post-op History of Present Illness Reason for Consultation: S/P ORIF Right Trimalleolar Ankle Fracture 12-05-[address] Wolf Requesting Physician: Dr Wolf Attending Physician: Vinicio Chapa DO History of Present Illness 64 yr old female underwent ORIF Right Trimalleolar Ankle Fracture 12-05-[address] Wolf. Was sent home in a plaster splint, NWBING with a walker. DVT prophylaxis with chronic coumadin and ASA, pain control with tylenol and oxycodone for severe pain. Patient was admitted to hospital on 12-15-20 for abdominal cramping. Admitted to medicine service and GI consulted. Patient was diagnosed with colitis. Per notes, coumadin initially held, but has since restarted. Plans for discharge later today. Had a scheduled appointment with Dr Wolf on 12-20-20 for removal of splint, xrays, suture removal, and cast application. Orthopedic consulted for treatment prior to discharge rather than have patient return to office tomorrow. She lives over an hour away. Patient seen in her room today. She was performing simple ADLs at bedside. She said she was overall doing better. Initially prior to recent hospital admission she was using walker and getting around ok, but became quite fatigued and was unable to use. Now, she is improved and able to use walker again while in hospital remaining NWBING. She says her pain been controlled with mainly tylenol, oxycodone only for severe pain. She has been elevating and icing if needed. Denies S/S of DVT. Denies S/S of infection. Plans to return home with her upon discharge. Allergies Allergy/AdvReac Type Severity Reaction Status Date / Time No Known Allergies Allergy Unverified 12/15/20 21:31 Home Medications Medication Instructions Recorded Confirmed Type aspirin 81 mg tablet,delayed 81 mg PO DAILY #30 tab 11/17/20 12/15/20 Rx release oxycodone 5 mg PO Q4H PRN #15 tab 11/25/20 12/15/20 Rx atorvastatin 40 mg PO HS 11/30/20 12/15/20 History carvedilol 25 mg PO BID 11/30/20 12/15/20 History lisinopril 10 mg PO HS 11/30/20 12/15/20 History warfarin 2.5 mg PO HS 11/30/20 12/15/20 History acetaminophen [Tylenol Extra 500 mg PO Q6H PRN 12/15/20 12/15/20 History Strength] cholecalciferol (vitamin D3) 0 mcg PO DAILY 12/15/20 12/15/20 History zinc 0 mg PO DAILY 12/15/20 12/15/20 History Patient History Medical History Anemia Ankle fracture RT Hx of migraines Hyperlipidemia Hypertension Lupus anticoagulant disorder Recurrent cold sores Stroke 2008 (NO PROBLEMS CURRENTLY) Surgical History History of nasal surgery History of tonsillectomy [place] teeth removed Family History Father Alcohol abuse Heart disease Seizure Brother Alcohol abuse Lung disease Mother Heart disease Kidney stones Hypertension Sister Heart disease Lung disease Other Myocardial infarction No family history of adverse response to anesthesia Denies family history of Ovarian cancer Prostate cancer Breast cancer Colorectal cancer Social History Smoking Status: Never smoker Second Hand Exposure: Yes ( A CHILD); Hx Alcohol Use: No Hx Substance Use: No Preferred Language: [place] Communication Ability: Effective [place] Required: No Beliefs That Will Affect Care: None marital status: Current Living Situation: Spouse current occupational status: retired Other Information That Helps Us Care for You: No Feels Safe at Home: Yes Safety Concerns: Feels Safe At This Time Dental Care, Regularly: Yes Physical Activity Frequency: Daily Assistive Devices: Abe Review of Systems Review of Systems: All systems reviewed & are unremarkable except as noted in Subjective Physical Exam Physical Exam: In bed, tolerated removal of right leg plaster splint. Mild to moderate swelling of right ankle. Sutures intact. No active drainage. No pus or foul odor. Some bruising, no redness. Able to wiggle toes. Calve is soft. Palpable DP and PT pulses. Sensation intact to light touch. Brisk capillary refill. No pain with right knee motion. L LE NV intact with neg neel and soft calve. Results & Data ([facility]) Vital Signs (Past 12 Hours) Vital Signs Temp Pulse Resp BP BP Pulse Ox 12/19/20 07:18 36.7 C 72 16 113/71 96 12/18/20 23:06 36.5 C 81 18 139/81 97 Laboratory Results 12/19/20 12/19/20 12/19/20 Range/Units 08:00 05:59 05:59 WBC (4.8-10.8) K/uL RBC (4.2-5.4) M/uL Hgb (12.0-16.0) g/dL Hct (37-47) % MCV (80-100) fL MCH (25-34) pg MCHC (32-36) g/dL RDW Std Deviation (36.4-46.3) fL RDW Coeff of Anibal (11.5-14.5) % Plt Count (130-400) K/uL MPV (7.4-10.4) fL Immature Gran % (Auto) % Neut % (Auto) % Lymph % (Auto) % [place] % (Auto) % Eos % (Auto) % Baso % (Auto) % Neut # (Auto) (1.4-6.5) K/uL Lymph # (Auto) (1.2-3.4) K/uL [place] # (Auto) (0.11-0.59) K/uL Eos # (Auto) (0-0.5) K/uL Baso # (Auto) (0-0.2) K/uL Immature Gran # (Auto) (0.00-0.02) K/uL PT 16.8 H (9.0-12.0) Seconds INR 1.7 H (0.9-1.1) Sodium 143 (136-145) mmol/L Potassium 3.9 (3.5-5.1) mmol/L Chloride 113 H (98-107) mmol/L Carbon Dioxide 23 (21-32) mmol/L Anion Gap 7.0 (3-11) BUN 9 (7-18) mg/dl Creatinine 1.10 (0.6-1.2) mg/dl Est Cr Clr Drug Dosing 43.4 ml/min Est GFR ( Amer) 60.6 Est GFR (Non-Af Amer) 52.3 BUN/Creatinine Ratio 8.1 L (10-20) Glucose 89 (70-99) mg/dl POC Glucose 88 (70-99) mg/dl Calcium 8.5 (8.5-10.1) mg/dl Total Bilirubin 0.7 (0.2-1) mg/dl AST 43 H (15-37) U/L ALT 55 (12-78) U/L Alkaline Phosphatase 132 H (45-117) U/L Total Protein 5.8 L (6.4-8.2) gm/dl Albumin 2.8 L (3.4-5.0) gm/dl Globulin 3.0 (2.5-4.0) gm/dl Albumin/Globulin Ratio 0.9 (0.9-2) 12/19/20 12/18/20 12/18/20 Range/Units 05:59 20:58 17:16 WBC 2.77 L (4.8-10.8) K/uL RBC 3.19 L (4.2-5.4) M/uL Hgb 9.4 L (12.0-16.0) g/dL Hct 27.8 L (37-47) % MCV 87.1 (80-100) fL MCH 29.5 (25-34) pg MCHC 33.8 (32-36) g/dL RDW Std Deviation 42.8 (36.4-46.3) fL RDW Coeff of Anibal 13.3 (11.5-14.5) % Plt Count 293 (130-400) K/uL MPV 9.2 (7.4-10.4) fL Immature Gran % (Auto) 0.4 % Neut % (Auto) 54.9 % Lymph % (Auto) 25.6 % [place] % (Auto) 14.4 % Eos % (Auto) 4.3 % Baso % (Auto) 0.4 % Neut # (Auto) 1.52 (1.4-6.5) K/uL Lymph # (Auto) 0.71 L (1.2-3.4) K/uL [place] # (Auto) 0.40 (0.11-0.59) K/uL Eos # (Auto) 0.12 (0-0.5) K/uL Baso # (Auto) 0.01 (0-0.2) K/uL Immature Gran # (Auto) 0.01 (0.00-0.02) K/uL PT (9.0-12.0) Seconds INR (0.9-1.1) Sodium (136-145) mmol/L Potassium (3.5-5.1) mmol/L Chloride (98-107) mmol/L Carbon Dioxide (21-32) mmol/L Anion Gap (3-11) BUN (7-18) mg/dl Creatinine (0.6-1.2) mg/dl Est Cr Clr Drug Dosing ml/min Est GFR ( Amer) Est GFR (Non-Af Amer) BUN/Creatinine Ratio (10-20) Glucose (70-99) mg/dl POC Glucose 111 H 79 (70-99) mg/dl Calcium (8.5-10.1) mg/dl Total Bilirubin (0.2-1) mg/dl AST (15-37) U/L ALT (12-78) U/L Alkaline Phosphatase (45-117) U/L Total Protein (6.4-8.2) gm/dl Albumin (3.4-5.0) gm/dl Globulin (2.5-4.0) gm/dl Albumin/Globulin Ratio (0.9-2) 12/18/20 Range/Units 12:01 WBC (4.8-10.8) K/uL RBC (4.2-5.4) M/uL Hgb (12.0-16.0) g/dL Hct (37-47) % MCV (80-100) fL MCH (25-34) pg MCHC (32-36) g/dL RDW Std Deviation (36.4-46.3) fL RDW Coeff of Anibal (11.5-14.5) % Plt Count (130-400) K/uL MPV (7.4-10.4) fL Immature Gran % (Auto) % Neut % (Auto) % Lymph % (Auto) % [place] % (Auto) % Eos % (Auto) % Baso % (Auto) % Neut # (Auto) (1.4-6.5) K/uL Lymph # (Auto) (1.2-3.4) K/uL [place] # (Auto) (0.11-0.59) K/uL Eos # (Auto) (0-0.5) K/uL Baso # (Auto) (0-0.2) K/uL Immature Gran # (Auto) (0.00-0.02) K/uL PT (9.0-12.0) Seconds INR (0.9-1.1) Sodium (136-145) mmol/L Potassium (3.5-5.1) mmol/L Chloride (98-107) mmol/L Carbon Dioxide (21-32) mmol/L Anion Gap (3-11) BUN (7-18) mg/dl Creatinine (0.6-1.2) mg/dl Est Cr Clr Drug Dosing ml/min Est GFR ( Amer) Est GFR (Non-Af Amer) BUN/Creatinine Ratio (10-20) Glucose (70-99) mg/dl POC Glucose 83 (70-99) mg/dl Calcium (8.5-10.1) mg/dl Total Bilirubin (0.2-1) mg/dl AST (15-37) U/L ALT (12-78) U/L Alkaline Phosphatase (45-117) U/L Total Protein (6.4-8.2) gm/dl Albumin (3.4-5.0) gm/dl Globulin (2.5-4.0) gm/dl Albumin/Globulin Ratio (0.9-2) Diagnostic Findings XR ankle RT min 3V routine CLINICAL HISTORY: Fracture status post internal fixation COMPARISON: 12/05/2020 DISCUSSION: There is an internally fixated trimalleolar fracture in near-normal anatomic alignment. IMPRESSION: Internally fixated trimalleolar fracture in near-normal anatomic alignment.
--- NOTE | 2020-12-19 12:54 | Discharge Summary ---
Date of Service December 19, 2020 Admission HPI Per Admitting Provider This is a 64-year-old female with PMHx of HTN, HLD, vitamin D deficiency, history of CVA in 2008 on Coumadin, anemia, migraines, and recent right ankle trimalleolar fracture sustained on 11/25/20 and was operated on on 12/05/2020, who presents with acute abdominal pain which has been ongoing for the past week. She reports that it got acutely worse yesterday and felt extremely nauseous. She has been eating crackers and Jell-O for the last 4-5 days, due to worsening abdominal pain in the left lower quadrant as well as nausea. She denies any recent changes in her diet, no consumption of raw or undercooked foods, denies any known sick contacts. Pt reports that she has been moving her bowels daily, denies any bright red blood per rectum, dark tarry stools, distention, and has been able to drink fluids without much difficulty. Yesterday she drank orange juice, coffee, soda and water. She has been taking her medications routinely up until today as she was too nauseous, and denies vomiting. [facility] follows her INR. In regards to her ankle, she is nonweightbearing and has been primarily wheelchair-bound for now, prior to this she was ambulatory without assistive devices. Patient lives at home with her . Denies smoking history or alcohol use. Principal Diagnosis Colitis, dehydration, acute kidney injury Discharge Exam Constitutional WD/WN, vitals as above Neck trachea midline, no thyromegaly Respiratory normal respiratory effort, lungs clear to auscultation Cardiovascular RRR, no murmur, no edema Gastrointestinal (Abdomen) normal bowel sounds, soft, nontender, no hepatosplenomegaly Musculoskeletal no cyanosis or clubbing, extremities motor strength 5/5 Skin no rashes, warm and dry Neurologic patellar DTR's 2+ bilat, sensation intact and PERRL, EOMI, accommodation nl, no face palsy, no dysarthria Psychiatric A+Ox3, euthymic affect Lymphatic no cervical or axillary lymphadenopathy Discharge Data Allergies Allergy/AdvReac Type Severity Reaction Status Date / Time No Known Allergies Allergy Unverified 12/15/20 21:31 Consultations 12/15/20 14:39 ED Decision to Admit Stat 02/25/21 17:37 Consult Case Management - Discharge Planning Routine 12/16/20 09:16 Consult Gastroenterology Routine 12/18/20 18:12 Consult Orthopedic Surgery Routine Ordered Studies 12/15/20 13:21 CT abd pelvis wo con Stat Hospital Course (1) Colitis: Presented with crampy left sided abd pain, found to have some thickened loops of small bowel and most pronounced distal descending colon to rectum colitis Most likely ischemic colitis given hypotension on admission Pain now resolved; abd nontender, no hematemesis, leukocytosis resolved, remains afebrile, No BRBPR but hgb dropped to 8.8 after admission and remained stable on repeat checks C. diff test not performed due to formed stool BCxs NGTD - COVID 19 is negative BPs improved after IVFs. No longer dehydrated. Non AG met acidosis now resolved Hypoglycemia resolved, sarah full liquids diet treated with Unasyn IV -- convert to Augmentin on dc for 10 days total Appreciate GI consult-plan for colonoscopy and EGD in [address] Salas [facility] - adv diet to low fiber (2) Elevated LFTs: elevated on admission AST and ALT,Alk phos and now improving INR elevated 4.6 and then down to 1.6 after IV Vit K 2.[address] Likely shock liver from hypotension, now improving continue to support BP follow LFTs periodically outpatient (3) Hypotension: as above, now resolved with IVFs, abx, tx of colitis unclear what provoked this but perhaps due to poor po intake from recent surgery and taking pain meds hypotension led to MATILDE, shock liver, and ischemic colitis -continue holding home lisinopril and Coreg, BP is stable off of them can check BP in the office (4) Anemia: Hgb dropped to 8.6 from 11.9 on admission and stable on repeat check No obvious bleeding from anywhere, may be some hemodilutional component but possible had GIB from ischemic colitis INR elevated as above and now improved Unclear source of anemia. Transferrin sat low at 14%. 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 Toth as an outpt in surgical center -Has been taking pain control with oxycodone at home, holding this medication for now -continue APAP prn -to f/u with Ortho new cast placed, follow up on 01/17, continue non-weight bearing (8) Lupus anticoagulant disorder: as per review of outpt records, on coumadin with h/o CVA held coumadin as above for anemia, elevated INR, but now restarted (9) IUD (intrauterine device) in place: noted on CT scan pt forgot she still had it in place, but outpt PCP notes say it is [employer] and [employer] recommended it remain in place? f/u with PCP and consider referral to [employer] also many years overdue for a pap smear-can do as outpt (10) Recurrent cold sores: with one acute outbreak on lower lip treated with Valtrex 1000mg po bid x 1 day (11) Stroke: -History of such in 2008, maintained on Coumadin, ASA -[facility] follows for results has Lupus AC Unclear if definitely needs ASA? Given anemia, will hold after discharge until has EGD as outpt (12) Hypertension: -Patient presented hypotensive with BP in the 80s/50s BPs improved -Holding antihypertensives including carvedilol and lisinopril for now (13) Hyperlipidemia: -Continue statin therapy Total Time Total Time Spent Total Time Spent (In Minutes): 33 minutes Total Time Includes: Examination of the Patient, Discharge Planning and Medication Reconciliation Discharge Plan Discharge Items Patient Disposition: Home - Self-Care Reason For Visit: COLITIS, PROCTITIS Discharge Diagnosis: Colitis, improving Acute kidney injury (resolved) Recent ankle fracture Condition on Discharge: Good Goals: follow up with orthopedics on 01/[address] 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 Please call Dr. Marina's office [phone] to answer some pre-screening questions and get your appointment scheduled.) Manuel Wolf MD [Physician] - 01/17/21 3:30 pm Diet: Low Fiber Addtl Attending Provider Instructions: Medications: several medications on hold at this time - ASPIRIN: hold 81mg daily, can resume after scopes if they are normal - COREG and LISINOPRIL: held on admission due to low blood pressure, acute kidney injury, will continue to hold these as your blood pressure is low normal even while off of them follow up with Dr. Sanz for blood pressure check in the office to see if you need to resume them Colitis, left sided: resolving, advance diet to low fiber and can then advance to regular diet as tolerated at home Dr. 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 Continue non-weightbear right leg with walker. Continue DVT prophylaxis with chronic coumadin. Per medicine, hold Aspirin until seen by GI as an outpatient. Continue ice and elevation as needed for pain and swelling. Continue tylenol 1000mg every 8hrs as needed for mild to moderate pain and oxycodone as prescribed as needed for severe pain. Cancelled appointment for 3- and rescheduled for 01/[address] Wolf at 3:30pm for removal of cast and xrays. Call the office at [phone] with any questions or concerns. Pending Studies at Discharge: No Stand-Alone Forms: [facility] [employer], Smoking Cessation Medications and DC Order Prescriptions: Continued atorvastatin 40 mg Tablet 40 mg PO HS RF: 0 warfarin 2.5 mg Tablet 2.5 mg PO HS RF: 0 acetaminophen [Tylenol Extra Strength] 500 mg Tablet 500 mg PO Q6H PRN (Reason: Fever Or Pain) RF: 0 zinc 50 mg Tablet 0 mg PO DAILY RF: 0 cholecalciferol (vitamin D3) 10 mcg (400 unit) Tablet 0 mcg PO DAILY RF: 0 oxycodone 5 mg tablet 5 mg PO Q4H PRN (Reason: pain) Qty: 15 RF: 0 Discontinued aspirin 81 mg tablet,delayed release (DR/EC) 81 mg PO DAILY Qty: 30 RF: 2 carvedilol 25 mg Tablet 25 mg PO BID RF: 0 lisinopril 10 mg Tablet 10 mg PO HS RF: 0 Discharge Orders: Discharge Order (Routine); Ordered 12/19/20 Ordered By: Vinicio Chapa Admission Data Admit Date/Time: 12/15/20 15:19 Attending Provider: Vinicio Chapa Admit Provider: David Barrett Primary Care Provider: Shiela Sanz Other Providers: David Barrett ; Theodore Marina ; Manuel Wolf Other Interventions: Discharge Summary Assessment (RN) Last Done: 12/19/20 12:56 Coding Level of Care Code D/C Day Management >30 mins Diagnoses Colitis K52.9 Elevated LFTs R79.89 Hypotension I95.9 Hypotension type: unspecified hypotension type Anemia D64.9 MATILDE (acute kidney injury) N17.9 Supratherapeutic INR R79.1 Ankle fracture S82.899A Lupus anticoagulant disorder D68.62 IUD (intrauterine device) in place Z97.5 Recurrent cold sores B00.1 Stroke I63.9 Hypertension I10 Hyperlipidemia E78.5
== END 2020-12-19 14:02 | disposition home or self-care (01) ==
LOC: ED 11:40 → INTOOBSV 15:19 → 2N 15:19 → SUATTDRO 15:19 → 2N 16:42 → 3W 12-16 18:03

== ENCOUNTER 2021-01-01 13:11 | Inpatient (IN) ==
[2021-01-01] MEDS ORDERED: ONDANSETRON INJ 2 MG/ML 2 ML VIAL IV STA (13:49)
--- NOTE | 2021-01-01 13:54 | Emergency Department Note ---
Impression & Plan Hypotension, Nausea & vomiting, MATILDE (acute kidney injury), Acute hyponatremia, Acute dehydration, Weakness ED Provider Note NAME: SIXTO GRACIA AGE: 65 SEX: F : 1955 ARRIVES VIA: Walk-In INFORMANT: [Patient][family] ED PROVIDER(S): [Kaiden Chisholm MD] CHIEF COMPLAINT: Vomiting, weakness HISTORY OF PRESENT ILLNESS: The patient is a 65-year-old female who was discharged from our hospital 13 days ago. She was admitted for colitis. She had some renal insufficiency. Patient states that since leaving here, she has had nausea with no appetite. She has had vomiting. She saw her doctors office 6 days ago and her doctor thought she was still recovering from her illness that required hospitalization. 3 days ago, the patient's doctor's office called in Zofran. The Zofran has helped the vomiting but not the nausea. She still has no appetite. She feels weak and exhausted. No chest pain or abdominal pain. No urinary complaints. No diarrhea. No cough or cold or congestion. She feels washed out, she states that she just cannot eat or drink. She is dehydrated and feels thirsty. REVIEW OF SYSTEMS: See HPI for pertinent positives and negatives. A total of ten systems were reviewed and were otherwise negative. PMHx/PSHx: See Below SOCIAL HISTORY: See Below. PHYSICAL EXAM: GENERAL: Patient is in no acute distress. Frail-appearing. HEENT: No acute trauma, normocephalic atraumatic, mucous membranes dry, no nasal congestion, no scleral icterus. NECK: No stridor, no adenopathy, no meningismus, trachea is midline. LUNGS: Clear to auscultation bilaterally, no wheeze, no rhonchi, breath sounds equal. HEART: Without murmurs gallops or rubs, regular rate and rhythm. ABDOMEN: Soft, nontender, bowel sounds positive, no hernias, no peritonitis. EXTREMITIES: No cyanosis or edema, full range of motion of all the joints without pain or difficulty, no signs for acute trauma. NEUROLOGIC: Oriented x 3, no acute motor or sensory deficits, no focal weakness. SKIN: No rash, no jaundice, no diaphoresis. DIFFERENTIAL DIAGNOSIS: Infection, dehydration, metabolic abnormality, hypo/hyperglycemia, electrolyte disturbance, anemia, hypoxia, cardiac sources, intracerebral event, toxicologic issues, stroke, TIA, as well as other pathologies. EMERGENCY DEPARTMENT COURSE/PROCEDURES: ECG: Indication was weakness. The ECG shows a normal sinus rhythm with a rate of 89. There is no ST elevation, there are no PVCs. The QTc is 447. Continuous Cardiac Monitoring: An order was placed for continuous cardiac monitoring. The monitor shows a rate of 104 with sinus tachycardia. MEDICAL DECISION MAKING: There is no leukocytosis or concerning anemia. There is a normal platelet count. Renal panel testing showed a higher potassium and some acute kidney injury. Sodium was low. Glucose was somewhat low in the 50s. Lactic acid level was not elevated making sepsis less likely. No significant elevation to the liver enzymes. The patient appeared to be in a euthyroid state. ECG shows a sinus rhythm, no acute ischemia. Cardiac enzyme testing x1 is not consistent with acute cardiac injury. Urinalysis shows ketones, no obvious infection. Covid testing returned negative. INR was quite supratherapeutic at over 8. Chest film does not show pneumonia or CHF. On exam, the patient appeared dehydrated. She was slightly hypotensive. There were no focal neurologic findings, no speech slur. She was not hypoxic. The patient received IV saline. She was given 1.5 L while here in the ED. She was given 5 mg of oral vitamin K as her INR was supratherapeutic. She received IV Zofran for nausea. She was given IV Pepcid for stomach upset. Patient is currently doing well. Her blood pressure has improved with her IV fluids. I do think she requires a hospital stay. She is quite dehydrated to the point where she has some acute kidney injury. She has a mildly elevated potassium and hyponatremia. She is over anticoagulated. The patient is willing to stay in the hospital. I did speak with case management, the on-call hospitalist was consulted. Past Med/Surg History Medical History Anemia Ankle fracture RT History of cerebrovascular accident (2008) Hx of migraines Hydronephrosis of right kidney Hyperlipidemia Hypertension Lupus anticoagulant disorder Recurrent cold sores Surgical History History of nasal surgery History of tonsillectomy Status post ORIF of fracture of ankle (12/05/20) [place] teeth removed Family History Father Alcohol abuse Heart disease Seizure Brother Alcohol abuse Lung disease Mother Heart disease Kidney stones Hypertension Sister Heart disease Lung disease Other Myocardial infarction No family history of adverse response to anesthesia Denies family history of Ovarian cancer Prostate cancer Breast cancer Colorectal cancer Social History Smoking Status: Never smoker Second Hand Exposure: Yes ( A CHILD); Hx Alcohol Use: No Hx Substance Use: No Preferred Language: Greek Communication Ability: Effective Visual Impairment: No Limitations Hearing Ability: Normal 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 Upholsterer Required: No Beliefs That Will Affect Care: None marital status: Current Living Situation: Spouse current occupational status: retired Feels Safe at Home: Yes Dental Care, Regularly: Yes Physical Activity Frequency: Daily Assistive Devices: Walker Allergies Allergies Allergy/AdvReac Type Severity Reaction Status Date / Time Penicillins AdvReac Mild "Doesn't Unverified 01/01/21 13:57 respond" Home Meds Home Medications Medication Instructions Recorded Confirmed atorvastatin 40 mg PO HS 11/30/20 01/01/21 warfarin 2.5 mg PO HS 11/30/20 01/01/21 acetaminophen [Tylenol Extra 500 mg PO Q6H PRN 12/15/20 01/01/21 Strength] cholecalciferol (vitamin D3) 0 mcg PO DAILY 12/15/20 01/01/21 zinc 0 mg PO DAILY 12/15/20 01/01/21 Previous Rx's Medication Instructions Recorded oxycodone 5 mg PO Q4H PRN #15 tab 11/25/20 ondansetron HCl 8 mg tablet 8 mg PO Q8H PRN #30 tab 12/30/20 Results & Data (ED) Vital Signs Vital Signs - 24 hr 01/01/21 13:31 01/01/21 13:45 01/01/21 14:29 Temperature 36.6 C Temperature Source Temporal Artery Scan Pulse Rate 105 H 90 Pulse Rate [Right Radial] 104 H 90 Pulse Rhythm Regular Pulse Rhythm [Right Radial] Regular Regular Pulse Strength [Right Radial] Normal Normal Respiratory Rate 20 18 17 Respiratory Effort / Characteristics Non-Labored Spontaneous Non-Labored Spontaneous Respiratory Depth Normal Normal Respiratory Pattern Regular Regular Blood Pressure 94/60 L Blood Pressure [Right Arm] 98/62 L 99/63 L Blood Pressure Mean 71 Blood Pressure Mean [Right Arm] 74 75 Blood Pressure Position [Right Arm] Lying Lying Pulse Oximetry 95 97 99 Oxygen Delivery Method Room Air Room Air Room Air Sepsis Recent Fever Within 48 Hours No Sepsis New/Unexplained Change in Mental Status No Sepsis Action Taken by Nursing No Action Required 01/01/21 15:08 01/01/21 16:30 Temperature Temperature Source Pulse Rate Pulse Rate [Right Radial] 100 H 98 H Pulse Rhythm Pulse Rhythm [Right Radial] Regular Pulse Strength [Right Radial] Normal Respiratory Rate 20 13 Respiratory Effort / Characteristics Non-Labored Non-Labored Spontaneous Respiratory Depth Normal Normal Respiratory Pattern Regular Blood Pressure Blood Pressure [Right Arm] 112/70 111/64 Blood Pressure Mean Blood Pressure Mean [Right Arm] 84 79 Blood Pressure Position [Right Arm] Lying Pulse Oximetry 98 98 Oxygen Delivery Method Room Air Room Air Sepsis Recent Fever Within 48 Hours Sepsis New/Unexplained Change in Mental Status Sepsis Action Taken by [facility] Medications Current Medication List: was personally reviewed by me Laboratory Data Attestation: I reviewed the patient's lab results. Result diagrams: 01/01/21 14:01 01/01/21 17:20 Lab Results 01/01/21 01/01/21 01/01/21 Range/Units 14:01 14:01 14:01 WBC 4.15 L (4.8-10.8) K/uL RBC 4.12 L (4.2-5.4) M/uL Hgb 12.2 (12.0-16.0) g/dL Hct 36.5 L (37-47) % MCV 88.6 (80-100) fL MCH 29.6 (25-34) pg MCHC 33.4 (32-36) g/dL RDW Std Deviation 44.3 (36.4-46.3) fL RDW Coeff of Anibal 13.6 (11.5-14.5) % Plt Count 238 (130-400) K/uL MPV 10.0 (7.4-10.4) fL Immature Gran % (Auto) 0.2 % Neut % (Auto) 45.6 % Lymph % (Auto) 29.2 % [place] % (Auto) 17.8 % Eos % (Auto) 6.5 % Baso % (Auto) 0.7 % Neut # (Auto) 1.89 (1.4-6.5) K/uL Lymph # (Auto) 1.21 (1.2-3.4) K/uL [place] # (Auto) 0.74 H (0.11-0.59) K/uL Eos # (Auto) 0.27 (0-0.5) K/uL Baso # (Auto) 0.03 (0-0.2) K/uL Immature Gran # (Auto) 0.01 (0.00-0.02) K/uL PT 70.1 H (9.0-12.0) Seconds INR 8.2 H* (0.9-1.1) APTT 99.0 H* (21.0-31.0) Seconds PTT Ratio 3.8 Sodium 131 L (136-145) mmol/L Potassium 5.3 H (3.5-5.1) mmol/L Chloride 97 L (98-107) mmol/L Carbon Dioxide 21 (21-32) mmol/L Anion Gap 13.0 H (3-11) BUN 38 H (7-18) mg/dl Creatinine 1.93 H (0.6-1.2) mg/dl Est Cr Clr Drug Dosing 22.1 ml/min Est GFR ( Amer) 30.5 Est GFR (Non-Af Amer) 26.3 BUN/Creatinine Ratio 19.6 (10-20) Glucose 54 L (70-99) mg/dl Calcium 10.6 H (8.5-10.1) mg/dl Magnesium 2.0 (1.8-2.4) mg/dl Total Bilirubin 0.8 (0.2-1) mg/dl AST 37 (15-37) U/L ALT 34 (12-78) U/L Alkaline Phosphatase 123 H (45-117) U/L Troponin I < 0.015 (0-0.045) ng/ml Total Protein 7.2 (6.4-8.2) gm/dl Albumin 3.7 (3.4-5.0) gm/dl Globulin 3.5 (2.5-4.0) gm/dl Albumin/Globulin Ratio 1.1 (0.9-2) TSH 1.930 (0.300-4.500) uIu/ml COVID-19 Eval Order SARS-CoV-2, RNA, NAAT (NEGATIVE) 01/01/21 01/01/21 Range/Units 16:12 16:12 WBC (4.8-10.8) K/uL RBC (4.2-5.4) M/uL Hgb (12.0-16.0) g/dL Hct (37-47) % MCV (80-100) fL MCH (25-34) pg MCHC (32-36) g/dL RDW Std Deviation (36.4-46.3) fL RDW Coeff of Anibal (11.5-14.5) % Plt Count (130-400) K/uL MPV (7.4-10.4) fL Immature Gran % (Auto) % Neut % (Auto) % Lymph % (Auto) % [place] % (Auto) % Eos % (Auto) % Baso % (Auto) % Neut # (Auto) (1.4-6.5) K/uL Lymph # (Auto) (1.2-3.4) K/uL [place] # (Auto) (0.11-0.59) K/uL Eos # (Auto) (0-0.5) K/uL Baso # (Auto) (0-0.2) K/uL Immature Gran # (Auto) (0.00-0.02) K/uL PT (9.0-12.0) Seconds INR (0.9-1.1) APTT (21.0-31.0) Seconds PTT Ratio Sodium (136-145) mmol/L Potassium (3.5-5.1) mmol/L Chloride (98-107) mmol/L Carbon Dioxide (21-32) mmol/L Anion Gap (3-11) BUN (7-18) mg/dl Creatinine (0.6-1.2) mg/dl Est Cr Clr Drug Dosing ml/min Est GFR ( Amer) Est GFR (Non-Af Amer) BUN/Creatinine Ratio (10-20) Glucose (70-99) mg/dl Calcium (8.5-10.1) mg/dl Magnesium (1.8-2.4) mg/dl Total Bilirubin (0.2-1) mg/dl AST (15-37) U/L ALT (12-78) U/L Alkaline Phosphatase (45-117) U/L Troponin I (0-0.045) ng/ml Total Protein (6.4-8.2) gm/dl Albumin (3.4-5.0) gm/dl Globulin (2.5-4.0) gm/dl Albumin/Globulin Ratio (0.9-2) TSH (0.300-4.500) uIu/ml COVID-19 Eval Order Covid19 IDNow atMDEC SARS-CoV-2, RNA, NAAT NEGATIVE (NEGATIVE) Administered Medications Atorvastatin Calcium (Atorvastatin 40 Mg Tab) 40 mg PO HS BILL Stop: 01/31/21 20:59 Last Admin: 01/01/21 20:24 Dose: 40 mg Documented by: [id number] Dextrose/Sodium Chloride (D5w And Nss) 1,000 mls @ 125 mls/hr IV .Q8H BILL Stop: 01/31/21 17:15 Last Admin: 01/01/21 18:39 Dose: 125 mls/hr Documented by: [id number] Pantoprazole Sodium (Pantoprazole 40 Mg Tab) 40 mg PO QAM BILL Stop: 01/31/21 17:59 Last Admin: 01/01/21 20:24 Dose: 40 mg Documented by: [id number] Senna/Docusate Sodium (Docusate Sodium/Senna 50/8.6mg Tab) 1 tab PO QAM BILL Stop: 01/31/21 17:14 Last Admin: 01/01/21 20:24 Dose: 1 tab Documented by: [id number] Discontinued Medications Dextrose (Dextrose 50% 50 Ml Syringe) 50 ml IV NOW ONE Stop: 01/01/21 19:48 Last Admin: 01/01/21 19:54 Dose: 50 ml Documented by: [id number] Sodium Chloride (Nss 1000ml) 1,000 mls @ 999 mls/hr IV .Q1H1M BILL Stop: 01/01/21 15:00 Last Infusion: 01/01/21 15:29 Dose: 0 mls/hr Documented by: [id number] Admin: 01/01/21 14:28 Dose: 999 mls/hr Documented by: [id number] Sodium Chloride (Nss 1000ml) 500 mls @ 999 mls/hr IV .Q31M ONE Stop: 01/01/21 15:26 Last Infusion: 01/01/21 16:00 Dose: 0 mls/hr Documented by: [id number] Admin: 01/01/21 15:05 Dose: 999 mls/hr Documented by: [id number] Sodium Chloride (Nss) 500 mls @ 100 mls/hr IV .Q5H BILL Stop: 01/31/21 16:44 Last Admin: 01/01/21 16:52 Dose: 100 mls/hr Documented by: [id number] Hydrocortisone Sodium (Succinate 100 mg/ Syringe) 2 mls @ 4 mls/min IV ONE ONE Stop: 01/01/21 20:01 Last Admin: 01/01/21 20:24 Dose: 4 mls/min Documented by: [id number] Famotidine 20 mg/ Syringe 5 mls @ 2.5 mls/min IV ONE ONE Stop: 01/01/21 20:16 Last Admin: 01/01/21 20:23 Dose: 2.5 mls/min Documented by: [id number] Ondansetron HCl (Ondansetron Inj 2 Mg/Ml 2 Ml Vial) 4 mg IV NOW STA Stop: 01/01/21 13:50 Last Admin: 01/01/21 14:28 Dose: 4 mg Documented by: [id number] Phytonadione (Phytonadione 5 Mg Tab) 5 mg PO NOW STA Stop: 01/01/21 14:58 Last Admin: 01/01/21 15:05 Dose: 5 mg Documented by: [id number] Imaging Data Radiologist's Impression: SINGLE VIEW CHEST CLINICAL HISTORY: Generalized weakness. FINDINGS: An AP, portable, upright chest radiograph is compared to study dated 12/15/2020. The cardiomediastinal silhouette is unremarkable noting mild atherosclerotic calcification of the thoracic aorta. The lungs and pleural spaces are clear. No pneumothorax is seen. The skeletal structures appear osteopenic. A right-sided rib fracture is again noted. IMPRESSION: No active disease in the chest. Discharge Plan Visit Data Chief Complaint: Vomiting Stated Complaint: VOMITING ED Provider: Kaiden Chisholm Discharge Problem: Hypotension, Nausea & vomiting, MATILDE (acute kidney injury), Acute hyponatremia, Acute dehydration, Weakness Patient Disposition: Admitted As Inpatient Condition: Fair Discharge Instructions Interventions: ED Discharge Assessment Last Done: 01/01/21 17:48 Discharge Problem: Hypotension Qualifiers: Hypotension type: unspecified hypotension type Qualified Code(s): I95.9 - Hypotension, unspecified Nausea & vomiting Qualifiers: Vomiting type: unspecified Vomiting Intractability: non-intractable Qualified Code(s): R11.2 - Nausea with vomiting, unspecified
[2021-01-01] MEDS ORDERED: SODIUM CHLORIDE 0.9% 1000ML 1,000 ML IV SCH (14:00)
[2021-01-01 14:18] LABS: Basophils # (auto) 0.03 K/uL (0-0.2); Basophils % (auto) 0.7 %; Eosinophils # (auto) 0.27 K/uL (0-0.5); Eosinophils % (auto) 6.5 %; Hematocrit (blood only) 36.5 % (37-47); Hemoglobin 12.2 g/dL (12.0-16.0); Immature Granulocytes # (auto) 0.01 K/uL (0.00-0.02); Immature Granulocytes % (auto) 0.2 %; Lymphocytes # (auto) 1.21 K/uL (1.2-3.4); Lymphocytes % (auto) 29.2 %; Mean Corpuscular Hemoglobin 29.6 pg (25-34); Mean Corpuscular Hgb Conc 33.4 g/dL (32-36); Mean Corpuscular Volume 88.6 fL (80-100); Monocytes # (auto) 0.74 K/uL (0.11-0.59); Monocytes % (auto) 17.8 %; Neutrophils # (auto) 1.89 K/uL (1.4-6.5); Neutrophils % (auto) 45.6 %; Platelet Count 238 K/uL (130-400); RDW Coefficient of Variation 13.6 % (11.5-14.5); RDW Standard Deviation 44.3 fL (36.4-46.3); Red Blood Count 4.12 M/uL (4.2-5.4); White Blood Count 4.15 K/uL (4.8-10.8)
--- NOTE | 2021-01-01 14:23 | XRay Report ---
SINGLE VIEW CHEST CLINICAL HISTORY: Generalized weakness. FINDINGS: An AP, portable, upright chest radiograph is compared to study dated 12/15/2020. The cardiom ediastinal silhouette is unremarkable noting mild atherosclerotic calcification of the thoracic aorta . The lungs and pleural spaces are clear. No pneumothorax is seen. The skeletal structures appear ost eopenic. A right-sided rib fracture is again noted. IMPRESSION: No active disease in the chest. ACT 112: Negative or not required by law. Electronically signed by: Kaiden Merida M.D. 01/01/2021 2:21 PM
[2021-01-01 14:38] LABS: Alanine Aminotransferase 34 U/L (12-78); Albumin Level 3.7 gm/dl (3.4-5.0); Aspartate Aminotransferase 37 U/L (15-37); BUN Creatinine Ratio 19.6 (10-20); Blood Urea Nitrogen 38 mg/dl (7-18); Calcium 10.6 mg/dl (8.5-10.1); Carbon Dioxide 21 mmol/L (21-32); Chloride 97 mmol/L (98-107); Creatinine Clr Calc Pharmacy 22.1 ml/min; Est GFR (African American) 30.5; Est GFR (Non-African American) 26.3; Glucose 54 mg/dl (70-99); Potassium 5.3 mmol/L (3.5-5.1); Sodium 131 mmol/L (136-145)
[2021-01-01 14:39] LABS: Partial Thromboplastin Ratio 3.8; Prothrombin Time 70.1 Seconds (9.0-12.0)
[2021-01-01 14:45] LABS: INR 8.2 (0.9-1.1)
[2021-01-01 14:49] LABS: Albumin Globulin Ratio 1.1 (0.9-2); Alkaline Phosphatase 123 U/L (45-117); Bilirubin,Total 0.8 mg/dl (0.2-1); Globulin 3.5 gm/dl (2.5-4.0); Total Protein 7.2 gm/dl (6.4-8.2); Troponin I < 0.015 ng/ml (0-0.045)
[2021-01-01] MEDS ORDERED: SODIUM CHLORIDE 0.9% 1000ML 500 ML IV ONE (14:56)
[2021-01-01] MEDS ORDERED: PHYTONADIONE 5 MG TAB PO STA ×2 (14:57→22:17)
[2021-01-01] MEDS ORDERED: SODIUM CHLORIDE 0.9% 500 ML IV SCH (16:45)
--- NOTE | 2021-01-01 16:45 | History & Physical Report ---
Date of Service January 01, 2021 Assessment & Plan (1) Nausea & vomiting: Presents with 4 to 5 days of nausea with one episode of vomiting on the first day. She has been taking oxycodone for her recent ankle surgery and has not moved her bowels in 5 to 6 days which may be contributing to the nausea She also previously was on aspirin which was stopped last admission for anemia- possibility she could have gastritis or an ulcer contributing to nausea? She has no abdominal pain, no dysuria or hematuria. Last admission she did have right-sided hydronephrosis noted but no stone at that time and is asymptomatic with this-it was thought to possibly be congenital and should be followed. -Bring in on observation to medical floor with telemetry -Hydrate with IV fluids for dehydration and acute kidney injury as below-we will give D5 normal saline at 125 mL's per hour given that she is also hypoglycemic -Antiemetics with IV Zofran and IV Compazine as needed -Give 1 dose of IV Pepcid now and start Protonix 40 mg p.o. twice daily -Consult GI to see about need for EGD as this was supposed be done in the near future as an outpatient anyway for known anemia -Keep n.p.o. except sips and chips -Check CT abdomen/pelvis now just to make sure there is no stone given the hydronephrosis previously -Start bowel regimen with senna/docusate and discontinue oxycodone which could be causing nausea and constipation (2) MATILDE (acute kidney injury): As above, creatinine elevated upon arrival likely secondary to poor p.o. intake and dehydration Hydrating with IV fluids as above Follow BMP in the morning (3) Hydronephrosis of right kidney: As noted above and on previous CT scan abdomen/pelvis Repeating scan If present and no stone, outpatient follow-up with urology planned (4) Hyponatremia: Sodium mildly low 131 Hydrating Follow BMP now and again in the morning (5) Anemia: Previous admission had a hemoglobin of 8. Her hemoglobin is 12 here but I feel this is hemoconcentrated due to her significant dehydration She had ischemic colitis last admission as well Iron saturation was low at 14% at that time Planned for EGD and colonoscopy as an outpatient in the near future -Consult GI as above Follow CBC (6) Hypertension: Previous admission was taken off of her home lisinopril and carvedilol for significant hypotension She is still mildly hypotensive here Would not give any antihypertensives (7) Hyperkalemia: Potassium mildly elevated here likely secondary to acute kidney injury Hydrating with normal saline Follow BMP now and again in the morning (8) Hypoglycemia: Blood sugar low both last admission and this admission Given hypotension, hypoglycemia, hyperkalemia, question of has adrenal insufficiency Check random cortisol now on a.m. cortisol in the morning Give D5 normal saline now We will hold off on any IV steroids unless cortisol level is low (9) History of ischemic colitis: From previous admission, secondary to hypotension at that time Resolved, no further abdominal pain, no diarrhea no bloody stools Follow-up with GI as an outpatient for planned colonoscopy (10) Hypotension: As above, mildly low upon admission due to dehydration But also questioning adrenal insufficiency Checking cortisol level Giving IV fluids (11) Supratherapeutic INR: INR 8.2 on admission She has been taking Coumadin but not eating anything for many days which is likely the cause Was given vitamin K 5 mg in the ER Follow INR now and again in the morning Restart Coumadin at lower dose once INR is back to therapeutic range (12) Hyperlipidemia: Continue statin if tolerated (13) Lupus anticoagulant disorder: On Coumadin Coumadin on hold and INR reversed given vitamin K for INR of 8.2 (14) History of cerebrovascular accident: On Coumadin With a history of lupus anticoagulant disorder Holding Coumadin (15) DVT prophylaxis: Coumadin, SCDs Disposition bring in on observation to medical floor with telemetry Full code History of Present Illness Chief Complaint: Nausea/vomiting Primary Care Provider: Shiela Sanz DO This patient is a 65-year-old female with a history of recent admission for ischemic colitis and anemia, CVA, lupus anticoagulant disorder on Coumadin, HTN, hyperlipidemia, HSV, vitamin D deficiency, migraines, and recent right ankle trimalleolar fracture with repair, who presents back to the ER with 4 to 5 days of persistent nausea with 1 day of vomiting. Since her discharge on 12/19, she reports she had no problems for 1 week or more and was able to tolerate p.o. and had no abdominal pain or any further diarrhea. She finished out her course of Augmentin for the ischemic colitis. Then, 4 days ago, she had an episode of nausea and vomiting and has felt nauseated ever since. Her PCP called in Zofran for her which has been minimally effective. She has only been taking crackers and drinking water for 5 days. She denies any blood in the vomit. She has not moved her bowels in 5 or 6 days. She has been taking oxycodone every night for pain in her right ankle with a cast in place as per orthopedics. She denies any abdominal pain or indigestion. Denies chest pains or shortness of breath. Denies headache or sore throat, no fevers or chills. She denies any urinary symptoms or blood in the urine. Her urine output has been diminished from usual. In the ER, she was found to have an acute kidney injury with BUN elevated at 38, creatinine 1.93. She also had hyponatremia with a sodium of 131, hyperkalemia with potassium of 5.3, serum bicarbonate was 21 with an anion gap of 13, and a low glucose at 54. Her CBC was fairly unremarkable. Her LFTs are back to normal from previous except for mild elevation in alkaline phosphatase at 123 which is improved from previous. Troponin was negative. TSH was normal at 1.93. Covid-19 test was negative. Her INR was elevated at 8.0 likely in the setting of taking Coumadin without being able to eat any food. There was no imaging performed at the time of admission. She was mildly tachycardic in the 90s to low 100s and her blood pressure was soft at 92/62. BP came up with IVFs to 111 systolic. In the ER, she was given IV fluids with a total of 2 L normal saline. Allergies Allergy/AdvReac Type Severity Reaction Status Date / Time Penicillins AdvReac Mild "Doesn't Unverified 01/01/21 13:57 respond" Home Medications Medication Instructions Recorded Confirmed Type oxycodone 5 mg PO Q4H PRN #15 tab 11/25/20 01/01/21 Rx atorvastatin 40 mg PO HS 11/30/20 01/01/21 History warfarin 2.5 mg PO HS 11/30/20 01/01/21 History acetaminophen [Tylenol Extra 500 mg PO Q6H PRN 12/15/20 01/01/21 History Strength] cholecalciferol (vitamin D3) 0 mcg PO DAILY 12/15/20 01/01/21 History zinc 0 mg PO DAILY 12/15/20 01/01/21 History ondansetron HCl 8 mg tablet 8 mg PO Q8H PRN #30 tab 12/30/20 01/01/21 Rx Past Med/Surg History Medical History Anemia Ankle fracture RT History of cerebrovascular accident (2008) Hx of migraines Hydronephrosis of right kidney Hyperlipidemia Hypertension Lupus anticoagulant disorder Recurrent cold sores Surgical History History of nasal surgery History of tonsillectomy Status post ORIF of fracture of ankle (12/05/20) [place] teeth removed Family History Father Alcohol abuse Heart disease Seizure Brother Alcohol abuse Lung disease Mother Heart disease Kidney stones Hypertension Sister Heart disease Lung disease Other Myocardial infarction No family history of adverse response to anesthesia Denies family history of Ovarian cancer Prostate cancer Breast cancer Colorectal cancer Social History Smoking Status: Never smoker Second Hand Exposure: Yes ( A CHILD); Hx Alcohol Use: No Hx Substance Use: No Preferred Language: [place] Communication Ability: Effective Visual Impairment: No Limitations Hearing Ability: Normal 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 Beliefs That Will Affect Care: None marital status: Current Living Situation: Spouse current occupational status: retired Feels Safe at Home: Yes Dental Care, Regularly: Yes Physical Activity Frequency: Daily Assistive Devices: Walker Review of Systems Review of Systems: All systems reviewed & are unremarkable except as noted in HPI & below Physical Exam Constitutional: WD/WN, vitals as above Eyes: PERRL, conjunctivae normal, anicteric sclerae ENMT: external ear and nose normal, oropharynx normal Neck: trachea midline, no thyromegaly Respiratory: normal respiratory effort, lungs clear to auscultation Cardiovascular: RRR, no murmur, no edema Chest (Breasts): Chest: normal inspection of chest Gastrointestinal (Abdomen): normal bowel sounds, soft, nontender, no hepatosplenomegaly Musculoskeletal: Extremities: extremities normal to inspection; no cyanosis and no clubbing Skin: no rashes, warm and dry Neurologic: moves all extremities and awake; no focal motor deficits Psychiatric: A+Ox3, euthymic affect Lymphatic: no lymphedema Results & Data Results & Data ([facility]) Vital Signs (Past 12 Hours) Vital Signs Temp Pulse Pulse Resp BP BP Pulse Ox 01/01/21 15:08 100 H 20 112/70 98 01/01/21 14:29 90 90 17 99/63 L 99 01/01/21 13:45 104 H 18 98/62 L 97 01/01/21 13:31 36.6 C 105 H 20 94/60 L 95 Laboratory Results 01/01/21 01/01/21 01/01/21 Range/Units 17:20 17:20 17:20 WBC (4.8-10.8) K/uL RBC (4.2-5.4) M/uL Hgb (12.0-16.0) g/dL Hct (37-47) % MCV (80-100) fL MCH (25-34) pg MCHC (32-36) g/dL RDW Std Deviation (36.4-46.3) fL RDW Coeff of Anibal (11.5-14.5) % Plt Count (130-400) K/uL MPV (7.4-10.4) fL Immature Gran % (Auto) % Neut % (Auto) % Lymph % (Auto) % [place] % (Auto) % Eos % (Auto) % Baso % (Auto) % Neut # (Auto) (1.4-6.5) K/uL Lymph # (Auto) (1.2-3.4) K/uL [place] # (Auto) (0.11-0.59) K/uL Eos # (Auto) (0-0.5) K/uL Baso # (Auto) (0-0.2) K/uL Immature Gran # (Auto) (0.00-0.02) K/uL PT (9.0-12.0) Seconds INR (0.9-1.1) APTT (21.0-31.0) Seconds PTT Ratio Sodium Pending (136-145) mmol/L Potassium Pending (3.5-5.1) mmol/L Chloride Pending (98-107) mmol/L Carbon Dioxide Pending (21-32) mmol/L Anion Gap Pending (3-11) BUN Pending (7-18) mg/dl Creatinine Pending (0.6-1.2) mg/dl Est Cr Clr Drug Dosing Pending ml/min Est GFR ( Amer) Pending Est GFR (Non-Af Amer) Pending BUN/Creatinine Ratio Pending (10-20) Glucose Pending (70-99) mg/dl Lactate Pending Calcium Pending (8.5-10.1) mg/dl Magnesium (1.8-2.4) mg/dl Total Bilirubin (0.2-1) mg/dl AST (15-37) U/L ALT (12-78) U/L Alkaline Phosphatase (45-117) U/L Troponin I (0-0.045) ng/ml Total Protein (6.4-8.2) gm/dl Albumin (3.4-5.0) gm/dl Globulin (2.5-4.0) gm/dl Albumin/Globulin Ratio (0.9-2) TSH (0.300-4.500) uIu/ml Random Cortisol Pending COVID-19 Eval Order SARS-CoV-2, RNA, NAAT (NEGATIVE) 01/01/21 01/01/21 01/01/21 Range/Units 16:12 16:12 14:01 WBC (4.8-10.8) K/uL RBC (4.2-5.4) M/uL Hgb (12.0-16.0) g/dL Hct (37-47) % MCV (80-100) fL MCH (25-34) pg MCHC (32-36) g/dL RDW Std Deviation (36.4-46.3) fL RDW Coeff of Anibal (11.5-14.5) % Plt Count (130-400) K/uL MPV (7.4-10.4) fL Immature Gran % (Auto) % Neut % (Auto) % Lymph % (Auto) % [place] % (Auto) % Eos % (Auto) % Baso % (Auto) % Neut # (Auto) (1.4-6.5) K/uL Lymph # (Auto) (1.2-3.4) K/uL [place] # (Auto) (0.11-0.59) K/uL Eos # (Auto) (0-0.5) K/uL Baso # (Auto) (0-0.2) K/uL Immature Gran # (Auto) (0.00-0.02) K/uL PT (9.0-12.0) Seconds INR (0.9-1.1) APTT (21.0-31.0) Seconds PTT Ratio Sodium 131 L (136-145) mmol/L Potassium 5.3 H (3.5-5.1) mmol/L Chloride 97 L (98-107) mmol/L Carbon Dioxide 21 (21-32) mmol/L Anion Gap 13.0 H (3-11) BUN 38 H (7-18) mg/dl Creatinine 1.93 H (0.6-1.2) mg/dl Est Cr Clr Drug Dosing 22.1 ml/min Est GFR ( Amer) 30.5 Est GFR (Non-Af Amer) 26.3 BUN/Creatinine Ratio 19.6 (10-20) Glucose 54 L (70-99) mg/dl Lactate Calcium 10.6 H (8.5-10.1) mg/dl Magnesium 2.0 (1.8-2.4) mg/dl Total Bilirubin 0.8 (0.2-1) mg/dl AST 37 (15-37) U/L ALT 34 (12-78) U/L Alkaline Phosphatase 123 H (45-117) U/L Troponin I < 0.015 (0-0.045) ng/ml Total Protein 7.2 (6.4-8.2) gm/dl Albumin 3.7 (3.4-5.0) gm/dl Globulin 3.5 (2.5-4.0) gm/dl Albumin/Globulin Ratio 1.1 (0.9-2) TSH 1.930 (0.300-4.500) uIu/ml Random Cortisol [facility], [facility], NAAT NEGATIVE (NEGATIVE) 01/01/21 01/01/21 Range/Units 14:01 14:01 WBC 4.15 L (4.8-10.8) K/uL RBC 4.12 L (4.2-5.4) M/uL Hgb 12.2 (12.0-16.0) g/dL Hct 36.5 L (37-47) % MCV 88.6 (80-100) fL MCH 29.6 (25-34) pg MCHC 33.4 (32-36) g/dL RDW Std Deviation 44.3 (36.4-46.3) fL RDW Coeff of Anibal 13.6 (11.5-14.5) % Plt Count 238 (130-400) K/uL MPV 10.0 (7.4-10.4) fL Immature Gran % (Auto) 0.2 % Neut % (Auto) 45.6 % Lymph % (Auto) 29.2 % [place] % (Auto) 17.8 % Eos % (Auto) 6.5 % Baso % (Auto) 0.7 % Neut # (Auto) 1.89 (1.4-6.5) K/uL Lymph # (Auto) 1.21 (1.2-3.4) K/uL [place] # (Auto) 0.74 H (0.11-0.59) K/uL Eos # (Auto) 0.27 (0-0.5) K/uL Baso # (Auto) 0.03 (0-0.2) K/uL Immature Gran # (Auto) 0.01 (0.00-0.02) K/uL PT 70.1 H (9.0-12.0) Seconds INR 8.2 H* (0.9-1.1) APTT 99.0 H* (21.0-31.0) Seconds PTT Ratio 3.8 Sodium (136-145) mmol/L Potassium (3.5-5.1) mmol/L Chloride (98-107) mmol/L Carbon Dioxide (21-32) mmol/L Anion Gap (3-11) BUN (7-18) mg/dl Creatinine (0.6-1.2) mg/dl Est Cr Clr Drug Dosing ml/min Est GFR ( Amer) Est GFR (Non-Af Amer) BUN/Creatinine Ratio (10-20) Glucose (70-99) mg/dl Lactate Calcium (8.5-10.1) mg/dl Magnesium (1.8-2.4) mg/dl Total Bilirubin (0.2-1) mg/dl AST (15-37) U/L ALT (12-78) U/L Alkaline Phosphatase (45-117) U/L Troponin I (0-0.045) ng/ml Total Protein (6.4-8.2) gm/dl Albumin (3.4-5.0) gm/dl Globulin (2.5-4.0) gm/dl Albumin/Globulin Ratio (0.9-2) TSH (0.300-4.500) uIu/ml Random Cortisol COVID-19 Eval Order SARS-CoV-2, RNA, NAAT (NEGATIVE) Code Status & VTE Plan Code Status Full code VTE Prophylaxis Plan VTE Prophylaxis will be ordered: Yes PG Care Time/CCT Total # of Minutes Spent Total Time Spent with Patient: Total time spent is greater than 50% in patient financial services coordinator rdination of care (as documented) at patient's floor/unit and/or counseling patient: Coding Level of Care Code 70877 OBS Care - Level 3 Diagnoses Nausea & vomiting R11.2 MATILDE (acute kidney injury) N17.9 Hydronephrosis of right kidney N13.30 Hyponatremia E87.1 Anemia D64.9 Hypertension I10 Hyperkalemia E87.5 Hypoglycemia E16.2 History of ischemic colitis Z87.19 Hypotension I95.9 Supratherapeutic INR R79.1 Hyperlipidemia E78.5 Lupus anticoagulant disorder D68.62 History of cerebrovascular accident Z86.73 DVT prophylaxis Z29.9
[2021-01-01] MEDS ORDERED: FAMOTIDINE 20 MG in SYRINGE 3 ML IV ONE ×2 (17:50→20:15)
[2021-01-01 17:58] LABS: Calcium 9.2 mg/dl (8.5-10.1); Creatinine Clr Calc Pharmacy 26.1 ml/min; Est GFR (African American) 37.1; Potassium 5.3 mmol/L (3.5-5.1)
[2021-01-01] MEDS ORDERED: PROCHLORPERAZINE 10 MG in SYRINGE 8 ML IV PRN (18:30)
--- NOTE | 2021-01-01 18:32 | CT Scan Report ---
CT SCAN OF THE ABDOMEN AND PELVIS WITHOUT IV CONTRAST CLINICAL HISTORY: Nausea and vomiting. COMPARISON STUDY: Abdominal CT dated 12/15/2020. TECHNIQUE: CT scan of the abdomen and pelvis is performed from the lung bases to the proximal femora. Images are reviewed in the axial, sagittal, and coronal planes. IV contrast was not administered for this examination. Note that the examination was performed in suboptimal fashion without oral and IV contrast. The Examination is also degraded by motion artifact. A dose lowering technique was utilized adhering to the principles of ALARA. CT DOSE: 250.33 mGy.cm FINDINGS: Lung bases: The heart is normal in size and without pericardial effusion. The lung bases are clear no ting bibasilar scarring/atelectasis. There is a small hiatal hernia. Liver: The unenhanced liver is normal in size, contour, and attenuation. There is no intrahepatic otis iary ductal dilatation. Gallbladder: Unremarkable. Spleen: Normal in size and attenuation. Pancreas: The unenhanced pancreas is grossly unremarkable. Adrenal glands: There is a 2.4 cm slightly hyperdense left adrenal lesion and a 3.2 cm slightly hyper dense right adrenal lesion. Kidneys: The unenhanced kidneys demonstrate cortical atrophy. There is moderate to severe right-sided hydronephrosis. The right ureter is normal in caliber. There is no left-sided hydronephrosis. There are no renal calculi identified. There is no evidence of contour deforming renal mass lesion. Abdominal vasculature: The abdominal aorta is normal in course and caliber noting moderate atheroscle rotic calcification. Bowel: No bowel obstruction is seen. There are scattered colonic diverticula without CT evidence of a cute diverticulitis. The appendix is not visualized. Peritoneum: There is no intraperitoneal free air or abdominal ascites. Lymphadenopathy: None. Pelvic viscera: The bladder is normal as visualized. The uterus is normal as imaged noting an intraut erine device in place. No adnexal lesion is seen. Skeletal structures: The skeletal structures are osteopenic. No lytic or blastic lesions are seen. Th ere is a subacute/healing right lateral 9th fracture. IMPRESSION: 1. Suboptimal examination without oral and IV contrast. The examination is also compromised by motion artifact. 2 The nonspecific enteritis/proctocolitis seen on 12/15/2020 has almost completely resolved. 3 There is no bowel obstruction. 4. There are slightly hyperdense bilateral adrenal lesions as detailed above which have decreased in size ad density as compared to 12/15/2020. This likely represents resolving adrenal hemorrhages. Follo w-up CT in several months time is recommended to document complete resolution. 5. 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 6 Additional findings as above. ACT 112: Negative or not required by law. Electronically signed by: Kaiden Merida M.D. 01/01/2021 6:31 PM
[2021-01-01] MEDS: D5W AND NSS 1,000 ML IV SCH (18:39)
[2021-01-01 18:46] LABS: Appearance Urine Clear (Clear); Bacteria Urine Automated Negative (Negative); Bilirubin Urine Negative (Negative); Blood Urine Negative (Negative); Color Urine Yellow; Glucose Urine UA Negative (Negative); Ketones Urine 3+ (Negative); Leukocyte Esterase Urine Trace (Negative); Nitrite Urine Negative (Negative); Protein Urine Negative (Negative); RBC Urine Automated 0-4 /hpf (0-4); Specific Gravity Urine 1.015 (1.000-1.030); Urobilinogen Urine Negative (Negative)
[2021-01-01] MEDS ORDERED: DEXTROSE 50% 50 ML SYRINGE IV ONE (19:47)
[2021-01-01] MEDS ORDERED: HYDROCORTISONE SOD 100 MG in SYRINGE 0 ML IV ONE (20:00)
[2021-01-01] MEDS: ATORVASTATIN 40 MG TAB PO SCH (20:24)
[2021-01-01] MEDS: PANTOprazole 40 MG TAB PO SCH (20:24)
[2021-01-01] MEDS: DOCUSATE SODIUM/SENNA 50/8.6MG TAB PO SCH (20:24)
[2021-01-01 20:39] LABS: Prothrombin Time 71.6 Seconds (9.0-12.0)
[2021-01-01 20:59] LABS: INR 8.4 (0.9-1.1)
[2021-01-01] MEDS ORDERED: PHYTONADIONE 5 MG in SODIUM CHLORIDE 0.9% 50 ML IV ONE (23:17)
[2021-01-02] MEDS: traMADol HCL 50 MG TABLET PO PRN ×2 (00:25→21:35)
[2021-01-02] MEDS: D5W AND NSS 1,000 ML IV SCH ×3 (01:52→17:41)
[2021-01-02] MEDS: HYDROCORTISONE SOD 50 MG in SYRINGE 0 ML IV SCH ×3 (03:42→21:02)
[2021-01-02 06:08] LABS: Basophils # (auto) 0.01 K/uL (0-0.2); Basophils % (auto) 0.4 %; Eosinophils # (auto) 0.01 K/uL (0-0.5); Eosinophils % (auto) 0.4 %; Hematocrit (blood only) 28.9 % (37-47); Hemoglobin 9.7 g/dL (12.0-16.0); Lymphocytes # (auto) 0.28 K/uL (1.2-3.4); Lymphocytes % (auto) 10.9 %; Mean Corpuscular Hemoglobin 29.4 pg (25-34); Mean Corpuscular Hgb Conc 33.6 g/dL (32-36); Mean Corpuscular Volume 87.6 fL (80-100); Mean Platelet Volume 9.5 fL (7.4-10.4); Monocytes # (auto) 0.04 K/uL (0.11-0.59); Monocytes % (auto) 1.6 %; Neutrophils # (auto) 2.22 K/uL (1.4-6.5); Neutrophils % (auto) 86.7 %; Platelet Count 184 K/uL (130-400); RDW Coefficient of Variation 13.2 % (11.5-14.5); RDW Standard Deviation 42.8 fL (36.4-46.3); White Blood Count 2.56 K/uL (4.8-10.8)
[2021-01-02 06:47] LABS: Albumin Globulin Ratio 1.1 (0.9-2); Albumin Level 2.9 gm/dl (3.4-5.0); BUN Creatinine Ratio 19.1 (10-20); Bilirubin,Total 0.8 mg/dl (0.2-1); Calcium 8.5 mg/dl (8.5-10.1); Est GFR (African American) 54.7; Est GFR (Non-African American) 47.2; Globulin 2.6 gm/dl (2.5-4.0); Magnesium 1.6 mg/dl (1.8-2.4); Potassium 5.1 mmol/L (3.5-5.1); Total Protein 5.5 gm/dl (6.4-8.2)
[2021-01-02] MEDS ORDERED: COSYNTROPIN 250 MCG in SYRINGE 4 ML IV ONE (08:00)
[2021-01-02] MEDS: PANTOprazole 40 MG TAB PO SCH (10:37)
[2021-01-02] MEDS: DOCUSATE SODIUM/SENNA 50/8.6MG TAB PO SCH (10:37)
[2021-01-02 12:11] LABS: INR 1.7 (0.9-1.1); Prothrombin Time 16.6 Seconds (9.0-12.0)
--- NOTE | 2021-01-02 16:11 | Hospitalist Progress Note ---
Date of Service January 02, 2021 Assessment & Plan (1) Adrenal insufficiency: new finding, random cortisol yesterday afternoon only 2 due to spontaneous adrenal hemorrhage two weeks ago, likely from supratherapeutic INR at that time feeling so much better with Hydrocortisone 50mg q8 will d/w endocrinology tomorrow morning K and Na have normalized, Cr is improved, blood pressure much better d/w patient that she will need follow up with endocrinology (2) Nausea & vomiting: Presents with 4 to 5 days of nausea with one episode of vomiting on the first day. likely from adrenal insufficiency now feels a lot better, tolerating liquid diet, advance to low fiber continue fluids today as her PO intake was very poor for 5 days, remains dehydrated (3) MATILDE (acute kidney injury): As above, creatinine elevated upon arrival likely secondary to poor p.o. intake and dehydration Hydrating with IV fluids as above Cr improved to 1.0 and 1.3 today, making more urine, electrolytes stable (4) Hydronephrosis of right kidney: As noted above and on previous CT scan abdomen/pelvis outpatient follow-up with urology planned (5) Hyponatremia: Sodium improved to 134, due to low cortisol Hydrating (6) Anemia: Previous admission had a hemoglobin of 8. Her hemoglobin is 9.7 Iron saturation was low at 14% at that time Planned for EGD and colonoscopy as an outpatient in the near future cancel GI consult as this can wait until outpatient setting (7) Hypertension: Previous admission was taken off of her home lisinopril and carvedilol for significant hypotension She is still mildly hypotensive here now BP is better, it was due to adrenal insufficiency (8) Hyperkalemia: Potassium mildly elevated here likely secondary to acute kidney injury and adrenal insufficiency K is normal today continue hydrocortisone (9) Hypoglycemia: Blood sugar low both last admission and this admission Given hypotension, hypoglycemia, hyperkalemia, question of has adrenal insufficiency Check random cortisol it is only 2 sugars better with hydrocortisone (10) History of ischemic colitis: From previous admission, secondary to hypotension at that time Resolved, no further abdominal pain, no diarrhea no bloody stools Follow-up with GI as an outpatient for planned colonoscopy (11) Hypotension: due to adrenal insufficiency better on hydrocortisone (12) Supratherapeutic INR: INR 8.2 on admission She has been taking Coumadin but not eating anything for many days which is likely the cause Was given vitamin K 5 mg in the ER INR down to 1.7 today resume Coumadin but at only 1mg daily (13) Hyperlipidemia: Continue statin if tolerated (14) Lupus anticoagulant disorder: On Coumadin INR is 1.7 after vitamin K (15) History of cerebrovascular accident: On Coumadin With a history of lupus anticoagulant disorder (16) DVT prophylaxis: Coumadin, SCDs Disposition bring in on observation to medical floor with telemetry Full code Admission and Anticipated Discharge Date Admission Date: January 01, 2021 Subjective patient feeling much, much better with hydrocortisone IV no longer has N/V, she is hungry her BP is normal, Na up to normal, K is down to normal, glucose levels normal, Cr down to normal continue Hydrocortisone discussed diagnosis with patient and her family at the bedside INR is down to 1.7 after Vitamin K, INR was 8.4 on admission resume Coumadin but at 1mg instead of 2.5mg she is interested in rehab, discussed that she could be ready by 01/04 will speak with endocrinology tomorrow Review of Systems Review of Systems: All systems reviewed & are unremarkable except as noted in Subjective Constitutional: + weakness; no fever and no fatigue Respiratory: no cough and no dyspnea Cardiovascular: no chest pain and no edema Gastrointestinal: no abdominal pain, no nausea, no vomiting, no constipation and no diarrhea/loose stools Musculoskeletal: no back pain and no joint pain Physical Exam Constitutional: WD/WN, vitals as above Neck: trachea midline, no thyromegaly Respiratory: normal respiratory effort, lungs clear to auscultation Cardiovascular: RRR, no murmur, no edema Gastrointestinal (Abdomen): normal bowel sounds, soft, nontender, no hepatosplenomegaly Musculoskeletal: no cyanosis or clubbing, extremities motor strength 5/5 Skin: no rashes, warm and dry Neurologic: patellar DTR's 2+ bilat, sensation intact and PERRL, EOMI, accommodation nl, no face palsy, no dysarthria Psychiatric: A+Ox3, euthymic affect Lymphatic: no cervical or axillary lymphadenopathy Results & Data Results & Data ([facility]) Vital Signs (Past 12 Hours) Vital Signs Temp Pulse Pulse Resp BP Pulse Ox 01/02/21 11:18 37.0 C 93 H 16 102/67 98 01/02/21 07:46 36.5 C 105 H 16 108/70 95 01/02/21 06:57 99 H Laboratory Results Laboratory Results - last 24 hr 01/01/21 01/01/21 01/01/21 16:12 16:12 17:20 WBC RBC Hgb Hct MCV MCH MCHC RDW Std Deviation RDW Coeff of Anibal Plt Count MPV Immature Gran % (Auto) Neut % (Auto) Lymph % (Auto) [place] % (Auto) Eos % (Auto) Baso % (Auto) Neut # (Auto) Lymph # (Auto) [place] # (Auto) Eos # (Auto) Baso # (Auto) Immature Gran # (Auto) PT INR Sodium 134 L Potassium 5.3 H Chloride 102 Carbon Dioxide 21 Anion Gap 11.0 BUN 35 H Creatinine 1.64 H Est Cr Clr Drug Dosing 26.1 Est GFR ( Amer) 37.1 Est GFR (Non-Af Amer) 32.0 BUN/Creatinine Ratio 21.0 H Glucose 49 L* POC Glucose Lactate Calcium 9.2 Magnesium Total Bilirubin AST ALT Alkaline Phosphatase Total Protein Albumin Globulin Albumin/Globulin Ratio Renin Activity Aldosterone Random Cortisol ACTH Urine Color Urine Appearance Urine pH Ur Specific [place] Urine Protein Urine Glucose (UA) Urine Ketones Urine Blood Urine Nitrite Urine Bilirubin Urine Urobilinogen Ur Leukocyte Esterase Urine WBC (Auto) Urine RBC (Auto) U Hyaline Cast (Auto) U Epithel Cells (Auto) Urine Bacteria (Auto) COVID-19 Eval Order Cov[facility] SARS-CoV-2, RNA, NAAT NEGATIVE 01/01/21 01/01/21 01/01/21 17:20 17:20 18:25 WBC RBC Hgb Hct MCV MCH MCHC RDW Std Deviation RDW Coeff of Anibal Plt Count MPV Immature Gran % (Auto) Neut % (Auto) Lymph % (Auto) [place] % (Auto) Eos % (Auto) Baso % (Auto) Neut # (Auto) Lymph # (Auto) [place] # (Auto) Eos # (Auto) Baso # (Auto) Immature Gran # (Auto) PT INR Sodium Potassium Chloride Carbon Dioxide Anion Gap BUN Creatinine Est Cr Clr Drug Dosing Est GFR ( Amer) Est GFR (Non-Af Amer) BUN/Creatinine Ratio Glucose POC Glucose Lactate 0.7 Calcium Magnesium Total Bilirubin AST ALT Alkaline Phosphatase Total Protein Albumin Globulin Albumin/Globulin Ratio Renin Activity Aldosterone Random Cortisol 2.39 ACTH Urine Color Yellow Urine Appearance Clear Urine pH 5.0 Ur Specific [place] 1.015 Urine Protein Negative Urine Glucose (UA) Negative Urine Ketones 3+ H Urine Blood Negative Urine Nitrite Negative Urine Bilirubin Negative Urine Urobilinogen Negative Ur Leukocyte Esterase Trace H Urine WBC (Auto) 5-10 H Urine RBC (Auto) 0-4 U Hyaline Cast (Auto) 1-5 U Epithel Cells (Auto) 5-10 H Urine Bacteria (Auto) Negative COVID-19 Eval Order SARS-CoV-2, RNA, NAAT 01/01/21 01/01/21 01/01/21 19:40 20:03 20:03 WBC RBC Hgb Hct MCV MCH MCHC RDW Std Deviation RDW Coeff of Anibal Plt Count MPV Immature Gran % (Auto) Neut % (Auto) Lymph % (Auto) [place] % (Auto) Eos % (Auto) Baso % (Auto) Neut # (Auto) Lymph # (Auto) [place] # (Auto) Eos # (Auto) Baso # (Auto) Immature Gran # (Auto) PT 71.6 H INR 8.4 H* Sodium Potassium Chloride Carbon Dioxide Anion Gap BUN Creatinine Est Cr Clr Drug Dosing Est GFR ( Amer) Est GFR (Non-Af Amer) BUN/Creatinine Ratio Glucose POC Glucose 56 L* Lactate Calcium Magnesium Total Bilirubin AST ALT Alkaline Phosphatase Total Protein Albumin Globulin Albumin/Globulin Ratio Renin Activity Pending Aldosterone Pending Random Cortisol ACTH Pending Urine Color Urine Appearance Urine pH Ur Specific [place] Urine Protein Urine Glucose (UA) Urine Ketones Urine Blood Urine Nitrite Urine Bilirubin Urine Urobilinogen Ur Leukocyte Esterase Urine WBC (Auto) Urine RBC (Auto) U Hyaline Cast (Auto) U Epithel Cells (Auto) Urine Bacteria (Auto) COVID-19 Eval Order SARS-CoV-2, RNA, NAAT 01/01/21 01/01/21 01/02/21 20:14 23:58 05:40 WBC 2.56 L RBC 3.30 L Hgb 9.7 L Hct 28.9 L MCV 87.6 MCH 29.4 MCHC 33.6 RDW Std Deviation 42.8 RDW Coeff of Anibal 13.2 Plt Count 184 MPV 9.5 Immature Gran % (Auto) 0.0 Neut % (Auto) 86.7 Lymph % (Auto) 10.9 [place] % (Auto) 1.6 Eos % (Auto) 0.4 Baso % (Auto) 0.4 Neut # (Auto) 2.22 Lymph # (Auto) 0.28 L [place] # (Auto) 0.04 L Eos # (Auto) 0.01 Baso # (Auto) 0.01 Immature Gran # (Auto) 0.00 PT INR Sodium Potassium Chloride Carbon Dioxide Anion Gap BUN Creatinine Est Cr Clr Drug Dosing Est GFR ( Amer) Est GFR (Non-Af Amer) BUN/Creatinine Ratio Glucose POC Glucose 187 H 155 H Lactate Calcium Magnesium Total Bilirubin AST ALT Alkaline Phosphatase Total Protein Albumin Globulin Albumin/Globulin Ratio Renin Activity Aldosterone Random Cortisol ACTH Urine Color Urine Appearance Urine pH Ur Specific [place] Urine Protein Urine Glucose (UA) Urine Ketones Urine Blood Urine Nitrite Urine Bilirubin Urine Urobilinogen Ur Leukocyte Esterase Urine WBC (Auto) Urine RBC (Auto) U Hyaline Cast (Auto) U Epithel Cells (Auto) Urine Bacteria (Auto) COVID-19 Eval Order SARS-CoV-2, RNA, NAAT 01/02/21 01/02/21 01/02/21 05:40 06:04 11:29 WBC RBC Hgb Hct MCV MCH MCHC RDW Std Deviation RDW Coeff of Anibal Plt Count MPV Immature Gran % (Auto) Neut % (Auto) Lymph % (Auto) [place] % (Auto) Eos % (Auto) Baso % (Auto) Neut # (Auto) Lymph # (Auto) [place] # (Auto) Eos # (Auto) Baso # (Auto) Immature Gran # (Auto) PT INR Sodium 135 L Potassium 5.1 Chloride 107 Carbon Dioxide 18 L Anion Gap 10.0 BUN 23 H Creatinine 1.19 D Est Cr Clr Drug Dosing 38.0 Est GFR ( Amer) 54.7 Est GFR (Non-Af Amer) 47.2 BUN/Creatinine Ratio 19.1 Glucose 197 H POC Glucose 199 H 235 H Lactate Calcium 8.5 Magnesium 1.6 L Total Bilirubin 0.8 AST 24 ALT 27 Alkaline Phosphatase 91 Total Protein 5.5 L D Albumin 2.9 L Globulin 2.6 Albumin/Globulin Ratio 1.1 Renin Activity Aldosterone Random Cortisol ACTH Urine Color Urine Appearance Urine pH Ur Specific [place] Urine Protein Urine Glucose (UA) Urine Ketones Urine Blood Urine Nitrite Urine Bilirubin Urine Urobilinogen Ur Leukocyte Esterase Urine WBC (Auto) Urine RBC (Auto) U Hyaline Cast (Auto) U Epithel Cells (Auto) Urine Bacteria (Auto) COVID-19 Eval Order SARS-CoV-2, RNA, NAAT 01/02/21 11:44 WBC RBC Hgb Hct MCV MCH MCHC RDW Std Deviation RDW Coeff of Anibal Plt Count MPV Immature Gran % (Auto) Neut % (Auto) Lymph % (Auto) [place] % (Auto) Eos % (Auto) Baso % (Auto) Neut # (Auto) Lymph # (Auto) [place] # (Auto) Eos # (Auto) Baso # (Auto) Immature Gran # (Auto) PT 16.6 H INR 1.7 H Sodium Potassium Chloride Carbon Dioxide Anion Gap BUN Creatinine Est Cr Clr Drug Dosing Est GFR ( Amer) Est GFR (Non-Af Amer) BUN/Creatinine Ratio Glucose POC Glucose Lactate Calcium Magnesium Total Bilirubin AST ALT Alkaline Phosphatase Total Protein Albumin Globulin Albumin/Globulin Ratio Renin Activity Aldosterone Random Cortisol ACTH Urine Color Urine Appearance Urine pH Ur Specific [place] Urine Protein Urine Glucose (UA) Urine Ketones Urine Blood Urine Nitrite Urine Bilirubin Urine Urobilinogen Ur Leukocyte Esterase Urine WBC (Auto) Urine RBC (Auto) U Hyaline Cast (Auto) U Epithel Cells (Auto) Urine Bacteria (Auto) COVID-19 Eval Order SARS-CoV-2, RNA, NAAT Medications Administered Current Inpatient Medications Acetaminophen (Acetaminophen 500 Mg Tab) 500 mg PO Q6H PRN PRN Reason: Fever Or Pain Stop: 01/31/21 18:37 Atorvastatin Calcium (Atorvastatin 40 Mg Tab) 40 mg PO HS BILL Stop: 01/31/21 20:59 Last Admin: 01/01/21 20:24 Dose: 40 mg Documented by: Dextrose/Sodium Chloride (D5w And Nss) 1,000 mls @ 125 mls/hr IV .Q8H BILL Stop: 01/31/21 17:15 Last Admin: 01/02/21 10:37 Dose: 125 mls/hr Documented by: Prochlorperazine 10 mg/ (Syringe) 10 mls @ 5 mls/min IV Q8 PRN PRN Reason: Nausea And Vomiting Stop: 01/31/21 18:29 Hydrocortisone Sodium (Succinate 50 mg/ Syringe) 1 mls @ 4 mls/min IV Q8 BILL Stop: 02/01/21 03:59 Last Admin: 01/02/21 13:39 Dose: 4 mls/min Documented by: Ondansetron HCl (Ondansetron Inj 2 Mg/Ml 2 Ml Vial) 4 mg IV Q6H PRN PRN Reason: Nausea Stop: 01/31/21 18:29 Pantoprazole Sodium (Pantoprazole 40 Mg Tab) 40 mg PO QAM BILL Stop: 01/31/21 17:59 Last Admin: 01/02/21 10:37 Dose: 40 mg Documented by: Senna/Docusate Sodium (Docusate Sodium/Senna 50/8.6mg Tab) 1 tab PO QAM BILL Stop: 01/31/21 17:14 Last Admin: 01/02/21 10:37 Dose: 1 tab Documented by: Tramadol HCl (Tramadol Hcl 50 Mg Tablet) 50 mg PO Q4H PRN PRN Reason: Pain Stop: 01/31/21 17:05 Last Admin: 01/02/21 00:25 Dose: 50 mg Documented by: Warfarin Sodium (Warfarin Sod 1 Mg Tab) 1 mg PO NOW STA Stop: 01/02/21 16:09 PG Care Time/CCT Total # of Minutes Spent Total Time Spent with Patient: Total time spent is greater than 50% in coordination of care (as documented) at patient's floor/unit and/or counseling patient: Coding Level of Care Code 15252 Subseq Hosp Care Lvl 3 Diagnoses Adrenal insufficiency E27.40 Nausea & vomiting R11.2 MATILDE (acute kidney injury) N17.9 Hydronephrosis of right kidney N13.30 Hyponatremia E87.1 Anemia D64.9 Hypertension I10 Hyperkalemia E87.5 Hypoglycemia E16.2 History of ischemic colitis Z87.19 Hypotension I95.9 Supratherapeutic INR R79.1 Hyperlipidemia E78.5 Lupus anticoagulant disorder D68.62 History of cerebrovascular accident Z86.73 DVT prophylaxis Z29.9
[2021-01-02] MEDS ORDERED: WARFARIN SOD 1 MG TAB PO ONE (16:30)
[2021-01-02 19:30] LABS: BUN Creatinine Ratio 13.8 (10-20); Calcium 8.8 mg/dl (8.5-10.1); Creatinine Clr Calc Pharmacy 33.8 ml/min; Est GFR (African American) 47.4; Est GFR (Non-African American) 40.9; Potassium 4.5 mmol/L (3.5-5.1)
[2021-01-02] MEDS: ATORVASTATIN 40 MG TAB PO SCH (20:50)
[2021-01-03] MEDS: D5W AND NSS 1,000 ML IV SCH ×2 (00:55→08:32)
[2021-01-03] MEDS: ONDANSETRON INJ 2 MG/ML 2 ML VIAL IV PRN ×2 (05:28→12:21)
[2021-01-03] MEDS: HYDROCORTISONE SOD 50 MG in SYRINGE 0 ML IV SCH (05:30)
--- NOTE | 2021-01-03 05:50 | Electrocardiogram Report ---
Test Reason : Blood Pressure : / mmHG Vent. Rate : 089 BPM Atrial Rate : 089 BPM P-R Int : 178 ms QRS Dur : 080 ms QT Int : 368 ms P-R-T Axes : 076 -23 036 degrees QTc Int : 447 ms Normal sinus rhythm Normal ECG When compared with ECG of 15-DEC-2020 12:08, T wave inversion no longer evident in Lateral leads Confirmed by Parviz Hartmann ([id number]) on 01/03/2021 5:49:55 AM Referred By: REFERRED SELF Confirmed By:Parviz Hartmann
[2021-01-03 07:22] LABS: Hematocrit (blood only) 27.7 % (37-47); Hemoglobin 9.4 g/dL (12.0-16.0); Mean Corpuscular Hemoglobin 29.7 pg (25-34); Mean Corpuscular Hgb Conc 33.9 g/dL (32-36); Mean Corpuscular Volume 87.7 fL (80-100); Mean Platelet Volume 9.6 fL (7.4-10.4); Platelet Count 179 K/uL (130-400); RDW Coefficient of Variation 13.6 % (11.5-14.5); RDW Standard Deviation 44.1 fL (36.4-46.3); Red Blood Count 3.16 M/uL (4.2-5.4); White Blood Count 7.91 K/uL (4.8-10.8)
[2021-01-03 07:41] LABS: INR 1.5 (0.9-1.1); Prothrombin Time 14.7 Seconds (9.0-12.0)
[2021-01-03 07:55] LABS: Albumin Level 2.8 gm/dl (3.4-5.0); BUN Creatinine Ratio 15.4 (10-20); Calcium 8.7 mg/dl (8.5-10.1); Creatinine Clr Calc Pharmacy 40.8 ml/min; Est GFR (African American) 58.2; Est GFR (Non-African American) 50.3; Potassium 4.2 mmol/L (3.5-5.1)
[2021-01-03 07:58] LABS: Bilirubin,Total 0.8 mg/dl (0.2-1); Globulin 2.7 gm/dl (2.5-4.0); Total Protein 5.5 gm/dl (6.4-8.2)
[2021-01-03] MEDS: PANTOprazole 40 MG TAB PO SCH (08:31)
[2021-01-03] MEDS: DOCUSATE SODIUM/SENNA 50/8.6MG TAB PO SCH (08:31)
[2021-01-03] MEDS: HYDROCORTISONE 10 MG TAB PO SCH (17:59)
[2021-01-03] MEDS: ATORVASTATIN 40 MG TAB PO SCH (20:28)
[2021-01-03] MEDS: traMADol HCL 50 MG TABLET PO PRN (20:30)
--- NOTE | 2021-01-03 22:46 | Hospitalist Progress Note ---
Date of Service January 03, 2021 Assessment & Plan (1) Adrenal insufficiency: new finding, random cortisol on admission was only 2 due to spontaneous adrenal hemorrhage two weeks ago, likely from supratherapeutic INR at that time feeling so much better with Hydrocortisone 50mg q8 d/w Dr. Bautista this morning, will change to hydrocortisone 20mg qAM and 10mg 8 hours later K and Na have normalized, Cr is normal, blood pressure much better d/w patient that she will need follow up with endocrinology, Cr. Bautista will help arrange this (2) Nausea & vomiting: Presents with 4 to 5 days of nausea with one episode of vomiting on the first day. likely from adrenal insufficiency now feels a lot better, tolerating liquid diet, advance to low fiber continue fluids today as her PO intake was very poor for 5 days, remains dehydrated some nausea this morning but no vomiting, hopeful it will resolve in next 24 hours (3) MATILDE (acute kidney injury): As above, creatinine elevated upon arrival likely secondary to poor p.o. intake and dehydration Hydrating with IV fluids as above Cr improved to 1.1 today, making more urine, electrolytes stable (4) Hydronephrosis of right kidney: As noted above and on previous CT scan abdomen/pelvis outpatient follow-up with urology planned (5) Hyponatremia: Sodium improved to 140, due to low cortisol Hydrating (6) Anemia: Previous admission had a hemoglobin of 8. Her hemoglobin is 9.4 Iron saturation was low at 14% at that time Planned for EGD and colonoscopy as an outpatient in the near future cancel GI consult as this can wait until outpatient setting (7) Hypertension: Previous admission was taken off of her home lisinopril and carvedilol for significant hypotension She is normotensive now BP is better, it was due to adrenal insufficiency (8) Hyperkalemia: Potassium mildly elevated here likely secondary to acute kidney injury and adrenal insufficiency K is normal past two days continue hydrocortisone (9) Hypoglycemia: Blood sugar low both last admission and this admission Given hypotension, hypoglycemia, hyperkalemia, question of has adrenal insufficiency Check random cortisol it is only 2 sugars better with hydrocortisone (10) History of ischemic colitis: From previous admission, secondary to hypotension at that time Resolved, no further abdominal pain however, she continues to have loose stools, no blood Follow-up with GI as an outpatient for planned colonoscopy (11) Hypotension: due to adrenal insufficiency better on hydrocortisone (12) Supratherapeutic INR: INR 8.2 on admission She has been taking Coumadin but not eating anything for many days which is likely the cause Was given vitamin K 5 mg in the ER INR down to 1.5 today continue Coumadin but at only 1mg daily (13) Hyperlipidemia: Continue statin if tolerated (14) Lupus anticoagulant disorder: On Coumadin INR is 1.5 after vitamin K (15) History of cerebrovascular accident: On Coumadin With a history of lupus anticoagulant disorder (16) DVT prophylaxis: Coumadin, SCDs full admission likely will need rehab Full code Admission and Anticipated Discharge Date Admission Date: January 02, [address] Bautista this morning, recommends Hydrocortisone 20mg in AM and 10mg 8 hours later he will set up patient to see him in the office still not eating great, some nausea but no vomiting labs reviewed, Cr 1.1, Na 140, K 4.2, HCO3 20, INR 1.5 patient admits to being very weak, but she is sitting up in a chair today no chest pain, no dyspnea, no fever/chills had a BM today, it was loose, she says she has not had a solid BM in two weeks Review of Systems Review of Systems: All systems reviewed & are unremarkable except as noted in Subjective Physical Exam Constitutional: WD/WN, vitals as above Neck: trachea midline, no thyromegaly Respiratory: normal respiratory effort, lungs clear to auscultation Cardiovascular: RRR, no murmur, no edema Gastrointestinal (Abdomen): normal bowel sounds, soft, nontender, no hepatosplenomegaly Musculoskeletal: no cyanosis or clubbing, extremities motor strength 5/5 Skin: no rashes, warm and dry Neurologic: patellar DTR's 2+ bilat, sensation intact and PERRL, EOMI, accommodation nl, no face palsy, no dysarthria Psychiatric: A+Ox3, euthymic affect Lymphatic: no cervical or axillary lymphadenopathy Results & Data Results & Data ([facility]) Vital Signs (Past 12 Hours) Vital Signs Temp Pulse Pulse Resp BP BP Pulse Ox 01/03/21 19:48 36.7 C 85 20 125/75 95 01/03/21 16:00 82 01/03/21 15:03 36.6 C 85 18 131/75 94 01/03/21 11:08 36.6 C 79 18 114/66 95 Laboratory Results Laboratory Results - last 24 hr 01/03/21 01/03/21 01/03/21 06:55 06:55 06:55 WBC 7.91 RBC 3.16 L Hgb 9.4 L Hct 27.7 L MCV 87.7 MCH 29.7 MCHC 33.9 RDW Std Deviation 44.1 RDW Coeff of Anibal 13.6 Plt Count 179 MPV 9.6 PT 14.7 H INR 1.5 H Sodium 140 Potassium 4.2 Chloride 113 H Carbon Dioxide 20 L Anion Gap 7.0 BUN 17 Creatinine 1.13 Est Cr Clr Drug Dosing 40.8 Est GFR ( Amer) 58.2 Est GFR (Non-Af Amer) 50.3 BUN/Creatinine Ratio 15.4 Glucose 152 H Calcium 8.7 Total Bilirubin 0.8 AST 20 ALT 21 Alkaline Phosphatase 83 Total Protein 5.5 L Albumin 2.8 L Globulin 2.7 Albumin/Globulin Ratio 1.0 Medications Administered Current Inpatient Medications Acetaminophen (Acetaminophen 500 Mg Tab) 500 mg PO Q6H PRN PRN Reason: Fever Or Pain Stop: 01/31/21 18:37 Atorvastatin Calcium (Atorvastatin 40 Mg Tab) [address] [facility] Stop: 01/31/21 20:59 Last Admin: 01/03/21 20:28 Dose: 40 mg Documented by: Hydrocortisone (Hydrocortisone 10 Mg Tab) [facility] [place] Stop: 02/03/21 08:59 Hydrocortisone (Hydrocortisone 10 Mg Tab) 10 mg PO DAILY@1700 [facility] Stop: 02/02/21 16:59 Last Admin: 01/03/21 17:59 Dose: 10 mg Documented by: Prochlorperazine 10 mg/ (Syringe) 10 mls @ 5 mls/min IV Q8 PRN PRN Reason: Nausea And Vomiting Stop: 01/31/21 18:29 Ondansetron HCl (Ondansetron Inj 2 Mg/Ml 2 Ml Vial) 4 mg IV Q6H PRN PRN Reason: Nausea Stop: 01/31/21 18:29 Last Admin: 01/03/21 12:21 Dose: 4 mg Documented by: Pantoprazole Sodium (Pantoprazole 40 Mg Tab) [facility] [place] Stop: 01/31/21 17:59 Last Admin: 01/03/21 08:31 Dose: 40 mg Documented by: Senna/Docusate Sodium (Docusate Sodium/Senna 50/8.6mg Tab) 1 tab PO QAM BILL Stop: 01/31/21 17:14 Last Admin: 01/03/21 08:31 Dose: 1 tab Documented by: Tramadol HCl (Tramadol Hcl 50 Mg Tablet) 50 mg PO Q4H PRN PRN Reason: Pain Stop: 01/31/21 17:05 Last Admin: 01/03/21 20:30 Dose: 50 mg Documented by: PG Care Time/CCT Total # of Minutes Spent Total Time Spent with Patient: Total time spent is greater than 50% in coordination of care (as documented) at patient's floor/unit and/or counseling patient: Coding Level of Care Code 73238 Subseq Hosp Care Lvl 3 Diagnoses Adrenal insufficiency E27.40 Nausea & vomiting R11.2 MATILDE (acute kidney injury) N17.9 Hydronephrosis of right kidney N13.30 Hyponatremia E87.1 Anemia D64.9 Hypertension I10 Hyperkalemia E87.5 Hypoglycemia E16.2 History of ischemic colitis Z87.19 Hypotension I95.9 Supratherapeutic INR R79.1 Hyperlipidemia E78.5 Lupus anticoagulant disorder D68.62 History of cerebrovascular accident Z86.73 DVT prophylaxis Z29.9
[2021-01-04] MEDS: ACETAMINOPHEN 500 MG TAB PO PRN ×4 (00:51→15:56)
[2021-01-04 07:03] LABS: INR 1.5 (0.9-1.1)
[2021-01-04 07:34] LABS: BUN Creatinine Ratio 13.3 (10-20); Calcium 8.8 mg/dl (8.5-10.1); Creatinine Clr Calc Pharmacy 40.4 ml/min; Est GFR (Non-African American) 49.2; Magnesium 1.4 mg/dl (1.8-2.4); Phosphorus 2.1 mg/dl (2.5-4.9); Potassium 3.5 mmol/L (3.5-5.1)
[2021-01-04] MEDS ORDERED: POTASSIUM PHOS 3 MMOL/1 ML INFUSION IV STA (07:45)
[2021-01-04] MEDS ORDERED: POTASSIUM PHOSPHATE 21 MMOL in SODIUM CHLORIDE 0.9% 500 ML IV ONE (08:00)
[2021-01-04] MEDS: HYDROCORTISONE 10 MG TAB PO SCH ×2 (08:10→15:57)
[2021-01-04] MEDS: DOCUSATE SODIUM/SENNA 50/8.6MG TAB PO SCH (08:10)
[2021-01-04] MEDS: PANTOprazole 40 MG TAB PO SCH (08:10)
[2021-01-04] MEDS: MAGNESIUM SULFATE / D5W 1 GM/100 ML BAG IV SCH ×2 (08:23→09:35)
--- NOTE | 2021-01-04 12:11 | Hospitalist Progress Note ---
Date of Service January 04, 2021 Assessment & Plan (1) Adrenal insufficiency: new finding, random cortisol on admission was only 2 due to spontaneous adrenal hemorrhage two weeks ago, likely from supratherapeutic INR at that time feeling so much better with Hydrocortisone 50mg q8 d/w Dr. Bautista, will change to hydrocortisone 20mg qAM and 10mg 8 hours later K and Na have normalized, Cr is normal, blood pressure much better d/w patient that she will need follow up with endocrinology, CrKellie Bautista will help arrange this plan for discharge tomorrow (2) Nausea & vomiting: Presents with 4 to 5 days of nausea with one episode of vomiting on the irst day. likely from adrenal insufficiency now feels a lot better, tolerating low fiber diet initially on fluids, stopped (3) MATILDE (acute kidney injury): As above, creatinine elevated upon arrival likely secondary to poor p.o. intake and dehydration Hydrating with IV fluids as above Cr improved to 1.15 today, making more urine, electrolytes stable (4) Hydronephrosis of right kidney: As noted above and on previous CT scan abdomen/pelvis outpatient follow-up with urology planned (5) Hyponatremia: Sodium improved to 141, due to low cortisol (6) Anemia: Previous admission had a hemoglobin of 8. Her hemoglobin is 9.4 Iron saturation was low at 14% at that time Planned for EGD and colonoscopy as an outpatient in the near future cancel GI consult as this can wait until outpatient setting (7) Hypertension: Previous admission was taken off of her home lisinopril and carvedilol for significant hypotension She is normotensive now BP is better, it was due to adrenal insufficiency (8) Hyperkalemia: Potassium mildly elevated here likely secondary to acute kidney injury and adrenal insufficiency K is normal past three days continue hydrocortisone (9) Hypoglycemia: Blood sugar low both last admission and this admission Given hypotension, hypoglycemia, hyperkalemia, question of has adrenal insufficiency Check random cortisol it is only 2 sugars better with hydrocortisone (10) History of ischemic colitis: From previous admission, secondary to hypotension at that time Resolved, no further abdominal pain no loose stools today, no blood Follow-up with GI as an outpatient for planned colonoscopy (11) Hypotension: due to adrenal insufficiency better on hydrocortisone (12) Supratherapeutic INR: INR 8.2 on admission She has been taking Coumadin but not eating anything for many days which is likely the cause Was given vitamin K 5 mg in the ER INR down to 1.5 today continue Coumadin but at only 1mg daily (13) Hyperlipidemia: Continue statin if tolerated (14) Lupus anticoagulant disorder: On Coumadin INR is 1.5 after vitamin K (15) History of cerebrovascular accident: On Coumadin With a history of lupus anticoagulant disorder (16) DVT prophylaxis: Coumadin, SCDs full admission likely will need rehab Full code Admission and Anticipated Discharge Date Admission Date: January 02, 2021 Subjective patient doing better, eating a lot better, no diarrhea today evaluated by therapy, she can return home once medically stable today is the first day on oral hydrocortisone Na, K , Cr are all stable breathing well, no fever, no chest pain, no dyspnea she feels ready to go home tomorrow Review of Systems Review of Systems: All systems reviewed & are unremarkable except as noted in Subjective Musculoskeletal: + joint pain (right ankle) and + muscle weakness Physical Exam Constitutional: WD/WN, vitals as above Neck: trachea midline, no thyromegaly Respiratory: normal respiratory effort, lungs clear to auscultation Cardiovascular: RRR, no murmur, no edema Gastrointestinal (Abdomen): normal bowel sounds, soft, nontender, no hepatosplenomegaly Musculoskeletal: no cyanosis or clubbing, extremities motor strength 5/5 Skin: no rashes, warm and dry Neurologic: patellar DTR's 2+ bilat, sensation intact and PERRL, EOMI, accommodation nl, no face palsy, no dysarthria Psychiatric: A+Ox3, euthymic affect Lymphatic: no cervical or axillary lymphadenopathy Results & Data Results & Data ([facility]) Vital Signs (Past 12 Hours) Vital Signs Temp Pulse Pulse Resp BP BP Pulse Ox 01/04/21 11:27 36.5 C 92 H 18 117/73 94 01/04/21 08:05 76 01/04/21 07:18 36.9 C 79 18 105/64 94 01/04/21 04:00 36.4 C L 83 18 113/67 93 01/04/21 00:45 89 Laboratory Results Laboratory Results - last 24 hr 01/04/21 01/04/21 06:32 06:32 PT 15.0 H INR 1.5 H Sodium 141 Potassium 3.5 D Chloride 113 H Carbon Dioxide 22 Anion Gap 6.0 BUN 15 Creatinine 1.15 Est Cr Clr Drug Dosing 40.4 Est GFR ( Amer) 57.0 Est GFR (Non-Af Amer) 49.2 BUN/Creatinine Ratio 13.3 Glucose 91 Calcium 8.8 Phosphorus 2.1 L Magnesium 1.4 L Medications Administered Current Inpatient Medications Acetaminophen (Acetaminophen 500 Mg Tab) 500 mg PO Q6H PRN PRN Reason: Fever Or Pain Stop: 01/31/21 18:37 Last Admin: 01/04/21 06:36 Dose: 500 mg Documented by: Atorvastatin Calcium (Atorvastatin 40 Mg Tab) 40 mg PO [facility] Stop: 01/31/21 20:59 Last Admin: 01/03/21 20:28 Dose: 40 mg Documented by: Hydrocortisone ([facility]cortisone 10 Mg Tab) [facility] [place]: 02/03/21 08:59 Last Admin: 01/04/21 08:10 Dose: 20 mg Documented by: Hydrocortisone (Hydrocortisone 10 Mg Tab) 10 mg PO DAILY@[facility] Stop: 02/02/21 16:59 Last Admin: 01/03/21 17:59 Dose: 10 mg Documented by: Prochlorperazine 10 mg/ (Syringe) 10 mls @ 5 mls/min IV Q8 PRN PRN Reason: Nausea And Vomiting Stop: 01/31/21 18:29 Potassium Phosphate 21 mmol/ (Sodium Chloride) 507 mls @ 88 mls/hr IV TODAY@0800 [facility] Stop: 01/04/21 13:45 Last Admin: 01/04/21 08:22 Dose: 88 mls/hr Documented by: Ondansetron HCl (Ondansetron Inj 2 Mg/Ml 2 Ml Vial) 4 mg IV Q6H PRN PRN Reason: Nausea Stop: 01/31/21 18:29 Last Admin: 01/03/21 12:21 Dose: 4 mg Documented by: Pantoprazole Sodium (Pantoprazole 40 Mg Tab) 40 mg PO [facility] Stop: 01/31/21 17:59 Last Admin: 01/04/21 08:10 Dose: 40 mg Documented by: Senna/Docusate Sodium (Docusate Sodium/Senna 50/8.6mg Tab) 1 tab PO [facility] Stop: 01/31/21 17:14 Last Admin: 01/04/21 08:10 Dose: 1 tab Documented by: Tramadol HCl (Tramadol Hcl 50 Mg Tablet) 50 mg PO Q4H PRN PRN Reason: Pain Stop: 01/31/21 17:05 Last Admin: 01/03/21 20:30 Dose: 50 mg Documented by: PG Care Time/CCT Total # of Minutes Spent Total Time Spent with Patient: Total time spent is greater than 50% in coordination of care (as documented) at patient's floor/unit and/or counseling patient: Coding Level of Care Code 26645 Subseq Hosp Care Lvl 3 Diagnoses Adrenal insufficiency E27.40 Nausea & vomiting R11.2 MATILDE (acute kidney injury) N17.9 Hydronephrosis of right kidney N13.30 Hyponatremia E87.1 Anemia D64.9 Hypertension I10 Hyperkalemia E87.5 Hypoglycemia E16.2 History of ischemic colitis Z87.19 Hypotension I95.9 Supratherapeutic INR R79.1 Hyperlipidemia E78.5 Lupus anticoagulant disorder D68.62 History of cerebrovascular accident Z86.73 DVT prophylaxis Z29.9
[2021-01-04] MEDS: traMADol HCL 50 MG TABLET PO PRN (20:33)
[2021-01-04] MEDS: ATORVASTATIN 40 MG TAB PO SCH (20:33)
[2021-01-05 06:52] LABS: INR 1.5 (0.9-1.1); Prothrombin Time 14.8 Seconds (9.0-12.0)
[2021-01-05 07:01] LABS: BUN Creatinine Ratio 18.3 (10-20); Calcium 8.4 mg/dl (8.5-10.1); Creatinine Clr Calc Pharmacy 45.2 ml/min; Est GFR (African American) 65.1; Est GFR (Non-African American) 56.2; Potassium 3.6 mmol/L (3.5-5.1)
[2021-01-05] MEDS: HYDROCORTISONE 10 MG TAB PO SCH ×2 (08:31→16:21)
[2021-01-05] MEDS: PANTOprazole 40 MG TAB PO SCH (08:31)
[2021-01-05] MEDS: DOCUSATE SODIUM/SENNA 50/8.6MG TAB PO SCH (08:31)
--- NOTE | 2021-01-05 14:38 | Hospitalist Progress Note ---
Date of Service January 05, 2021 Assessment & Plan (1) Adrenal insufficiency: new finding, random cortisol on admission was only 2 due to spontaneous adrenal hemorrhage two weeks ago, likely from supratherapeutic INR at that time feeling so much better with Hydrocortisone 50mg q8 d/w Dr. Bautista, will change to hydrocortisone 20mg qAM and 10mg 8 hours later K and Na have normalized, Cr is normal, blood pressure much better, actually elevated today d/w patient that she will need follow up with endocrinology, Cr. Bautista arranged follow up in January plan for discharge today (2) Nausea & vomiting: Presents with 4 to 5 days of nausea with one episode of vomiting on the first day. likely from adrenal insufficiency now feels a lot better, tolerating low fiber diet for two days initially on fluids, stopped (3) MATILDE (acute kidney injury): As above, creatinine elevated upon arrival likely secondary to poor p.o. intake and dehydration Hydrating with IV fluids as above Cr improved to 1.1, making more urine, electrolytes stable (4) Hydronephrosis of right kidney: As noted above and on previous CT scan abdomen/pelvis outpatient follow-up with urology planned (5) Hyponatremia: Sodium improved to normal levels immediately, it is > 140, was low due to low cortisol (6) Anemia: Previous admission had a hemoglobin of 8. Her hemoglobin is 9.4 Iron saturation was low at 14% at that time Planned for EGD and colonoscopy as an outpatient in the near future cancel GI consult as this can wait until outpatient setting (7) Hypertension: Previous admission was taken off of her home lisinopril and carvedilol for significant hypotension She is now hypertensive started on metoprolol 12.5mg BID for BP control and due to paroxysmal afib, see below follow up with PCP next week for BP check, might be able to add back lisinopril unsure how long she will need the hydrocortisone, now making her hypertensive (8) Hyperkalemia: Potassium mildly elevated here likely secondary to acute kidney injury and adrenal insufficiency K is normal past four days continue hydrocortisone (9) Hypoglycemia: Blood sugar low both last admission and this admission Given hypotension, hypoglycemia, hyperkalemia, question of has adrenal insufficiency Check random cortisol it is only 2 sugars better with hydrocortisone (10) History of ischemic colitis: From previous admission, secondary to hypotension at that time Resolved, no further abdominal pain no loose stools for three days, no blood Follow-up with GI as an outpatient for planned colonoscopy (11) Hypotension: due to adrenal insufficiency better on hydrocortisone (12) Supratherapeutic INR: INR 8.2 on admission She has been taking Coumadin but not eating anything for many days which is likely the cause Was given vitamin K 5 mg in the ER INR down to 1.5 today continue Coumadin but at only 2mg daily instructed to check INR on Tuesday 01/09 (13) Hyperlipidemia: Continue statin if tolerated (14) Lupus anticoagulant disorder: On Coumadin INR is 1.5 after vitamin K (15) History of cerebrovascular accident: On Coumadin With a history of lupus anticoagulant disorder (16) DVT prophylaxis: Coumadin, SCDs full admission likely will need rehab Full code (17) Paroxysmal atrial fibrillation: two very brief runs of afib on the monitor, both < 10 seconds, no symptoms no such history of afib HR in the 80's, NSR, at rest already takes Coumadin for lupus anticoagulant disorder will start on Lopressor 12.5mg BID since her BP is now elevated on Hydrocortisone follow up with PCP Admission and Anticipated Discharge Date Admission Date: January 02, 2021 Subjective patient was discharged on 01/05, see discharge summary for full details feeling well, wants to go home had brief run of afib that was less than 10 seconds and then another very brief run no history of afib, no symptoms she already takes Coumadin, discussed starting low dose Lopressor at 12.5mg BID, she agreed Review of Systems Review of Systems: All systems reviewed & are unremarkable except as noted in Subjective Constitutional: no fever, no chills, no sweats, no fatigue and no weakness Respiratory: no cough and no dyspnea Cardiovascular: no chest pain Gastrointestinal: no abdominal pain, no nausea, no vomiting and no diarrhea/loose stools Musculoskeletal: + joint pain (mild pain right ankle) Physical Exam Constitutional: WD/WN, vitals as above Neck: trachea midline, no thyromegaly Respiratory: normal respiratory effort, lungs clear to auscultation Cardiovascular: RRR, no murmur, no edema Gastrointestinal (Abdomen): normal bowel sounds, soft, nontender, no hepatosplenomegaly Musculoskeletal: no cyanosis or clubbing, extremities motor strength 5/5 Skin: no rashes, warm and dry Neurologic: patellar DTR's 2+ bilat, sensation intact and PERRL, EOMI, accommodation nl, no face palsy, no dysarthria Psychiatric: A+Ox3, euthymic affect Lymphatic: no cervical or axillary lymphadenopathy Results & Data Results & Data ([facility]) Vital Signs (Past 12 Hours) Vital Signs Temp Pulse Pulse Resp BP Pulse Ox 01/05/21 11:19 36.8 C 80 18 149/81 H 95 01/05/21 07:18 36.5 C 82 17 144/85 H 95 01/05/21 07:05 78 01/05/21 03:51 36.4 C L 90 16 145/80 H 97 Laboratory Results Laboratory Results - last 24 hr 01/05/21 01/05/21 01/05/21 05:39 06:07 06:07 PT 14.8 H INR 1.5 H Sodium 141 Potassium 3.6 Chloride 113 H Carbon Dioxide 23 Anion Gap 5.0 BUN 19 H Creatinine 1.03 Est Cr Clr Drug Dosing 45.2 Est GFR ( Amer) 65.1 Est GFR (Non-Af Amer) 56.2 BUN/Creatinine Ratio 18.3 Glucose 85 POC Glucose 96 Calcium 8.4 L Medications Administered Current Inpatient Medications Acetaminophen (Acetaminophen 500 Mg Tab) 500 mg PO Q6H PRN PRN Reason: Fever Or Pain Stop: 01/31/21 18:37 Last Admin: 01/04/21 15:56 Dose: 500 mg Documented by: Atorvastatin Calcium (Atorvastatin 40 Mg Tab) 40 mg PO HS [facility] Stop: 01/31/21 20:59 Last Admin: 01/04/21 20:33 Dose: 40 mg Documented by: Hydrocortisone (Hydrocortisone 10 Mg Tab) 20 mg PO QAM [facility] Stop: 02/03/21 08:59 Last Admin: 01/05/21 08:31 Dose: 20 mg Documented by: Hydrocortisone (Hydrocortisone 10 Mg Tab) 10 mg PO DAILY@1700 [facility] Stop: 02/02/21 16:59 Last Admin: 01/04/21 15:57 Dose: 10 mg Documented by: Prochlorperazine 10 mg/ (Syringe) 10 mls @ 5 mls/min IV Q8 PRN PRN Reason: Nausea And Vomiting Stop: 01/31/21 18:29 Metoprolol Tartrate (Metoprolol Tartrate 25 Mg Tab) 12.5 mg PO BID [facility] Stop: 02/04/21 20:59 Ondansetron HCl (Ondansetron Inj 2 Mg/Ml 2 Ml Vial) 4 mg IV Q6H PRN PRN Reason: Nausea Stop: 01/31/21 18:29 Last Admin: 01/03/21 12:21 Dose: 4 mg Documented by: Pantoprazole Sodium (Pantoprazole 40 Mg Tab) 40 mg PO QAM [facility] Stop: 01/31/21 17:59 Last Admin: 01/05/21 08:31 Dose: 40 mg Documented by: Senna/Docusate Sodium (Docusate Sodium/Senna 50/8.6mg Tab) 1 tab PO QAM [facility] Stop: 01/31/21 17:14 Last Admin: 01/05/21 08:31 Dose: 1 tab Documented by: Tramadol HCl (Tramadol Hcl 50 Mg Tablet) 50 mg PO Q4H PRN PRN Reason: Pain Stop: 01/31/21 17:05 Last Admin: 01/04/21 20:33 Dose: 50 mg Documented by: Warfarin Sodium (Warfarin Sod 2 Mg Tab) 2 mg PO DAILY@1600 [facility] Stop: 02/04/21 15:59 PG Care Time/CCT Total # of Minutes Spent Total Time Spent with Patient: Total time spent is greater than 50% in coordination of care (as documented) at patient's floor/unit and/or counseling patient: Coding Level of Care Code None Diagnoses Adrenal insufficiency E27.40 Nausea & vomiting R11.2 MATILDE (acute kidney injury) N17.9 Hydronephrosis of right kidney N13.30 Hyponatremia E87.1 Anemia D64.9 Hypertension I10 Hyperkalemia E87.5 Hypoglycemia E16.2 History of ischemic colitis Z87.19 Hypotension I95.9 Supratherapeutic INR R79.1 Hyperlipidemia E78.5 Lupus anticoagulant disorder D68.62 History of cerebrovascular accident Z86.73 DVT prophylaxis Z29.9 Paroxysmal atrial fibrillation I48.0
[2021-01-05] MEDS ORDERED: WARFARIN SOD 2 MG TAB PO SCH (16:00)
[2021-01-05] MEDS ORDERED: METOPROLOL TARTRATE 25 MG TAB PO SCH (21:00)
--- NOTE | 2021-01-06 07:30 | Discharge Summary ---
Date of Service January 05, 2021 Admission HPI Per Admitting Provider This patient is a 65-year-old female with a history of recent admission for ischemic colitis and anemia, CVA, lupus anticoagulant disorder on Coumadin, HTN, hyperlipidemia, HSV, vitamin D deficiency, migraines, and recent right ankle trimalleolar fracture with repair, who presents back to the ER with 4 to 5 days of persistent nausea with 1 day of vomiting. Since her discharge on 12/19, she reports she had no problems for 1 week or more and was able to tolerate p.o. and had no abdominal pain or any further diarrhea. She finished out her course of Augmentin for the ischemic colitis. Then, 4 days ago, she had an episode of nausea and vomiting and has felt nauseated ever since. Her PCP called in [facility] for her which has been minimally effective. She has only been taking crackers and drinking water for 5 days. She denies any blood in the vomit. She has not moved her bowels in 5 or 6 days. She has been taking oxycodone every night for pain in her right ankle with a cast in place as per orthopedics. She denies any abdominal pain or indigestion. Denies chest pains or shortness of breath. Denies headache or sore throat, no fevers or chills. She denies any urinary symptoms or blood in the urine. Her urine output has been diminished from usual. In the ER, she was found to have an acute kidney injury with BUN elevated at 38, creatinine 1.93. She also had hyponatremia with a sodium of 131, hyperkalemia with potassium of 5.3, serum bicarbonate was 21 with an anion gap of 13, and a low glucose at 54. Her CBC was fairly unremarkable. Her LFTs are back to normal from previous except for mild elevation in alkaline phosphatase at 123 which is improved from previous. Troponin was negative. TSH was normal at 1.93. Covid-19 test was negative. Her INR was elevated at 8.0 likely in the setting of taking Coumadin without being able to eat any food. There was no imaging performed at the time of admission. She was mildly tachycardic in the 90s to low 100s and her blood pressure was soft at 92/62. BP came up with IVFs to 111 systolic. In the ER, she was given IV fluids with a total of 2 L normal saline. Principal Diagnosis Acute adrenal insufficiency Discharge Exam Constitutional WD/WN, vitals as above Neck trachea midline, no thyromegaly Respiratory normal respiratory effort, lungs clear to auscultation Cardiovascular RRR, no murmur, no edema Gastrointestinal (Abdomen) normal bowel sounds, soft, nontender, no hepatosplenomegaly Musculoskeletal no cyanosis or clubbing, extremities motor strength 5/5 Skin no rashes, warm and dry Neurologic patellar DTR's 2+ bilat, sensation intact and PERRL, EOMI, accommodation nl, no face palsy, no dysarthria Psychiatric A+Ox3, euthymic affect Lymphatic no cervical or axillary lymphadenopathy Discharge Data Allergies Allergy/AdvReac Type Severity Reaction Status Date / Time Penicillins AdvReac Mild "Doesn't Unverified 01/01/21 13:57 respond" Consultations 01/01/21 15:07 ED Decision to Admit Stat 01/01/21 17:54 ED Decision to Admit Stat Ordered Studies 01/01/21 17:06 CT abd pelvis wo con Urgent Hospital Course (1) Adrenal insufficiency: new finding, random cortisol on admission was only 2 due to spontaneous adrenal hemorrhage two weeks ago, likely from supratherapeutic INR at that time feeling so much better with Hydrocortisone 50mg q8 d/w Dr. Bautista, will change to hydrocortisone 20mg qAM and 10mg 8 hours later K and Na have normalized, Cr is normal, blood pressure much better, actually elevated today d/w patient that she will need follow up with endocrinology, Cr. Bautista arranged follow up in January plan for discharge today (2) Nausea & vomiting: Presents with 4 to 5 days of nausea with one episode of vomiting on the first day. likely from adrenal insufficiency now feels a lot better, tolerating low fiber diet for two days initially on fluids, stopped (3) MATILDE (acute kidney injury): As above, creatinine elevated upon arrival likely secondary to poor p.o. intake and dehydration Hydrating with IV fluids as above Cr improved to 1.1, making more urine, electrolytes stable (4) Hydronephrosis of right kidney: As noted above and on previous CT scan abdomen/pelvis outpatient follow-up with urology planned (5) Hyponatremia: Sodium improved to normal levels immediately, it is > 140, was low due to low cortisol (6) Anemia: Previous admission had a hemoglobin of 8. Her hemoglobin is 9.4 Iron saturation was low at 14% at that time Planned for EGD and colonoscopy as an outpatient in the near future cancel GI consult as this can wait until outpatient setting (7) Hypertension: Previous admission was taken off of her home lisinopril and carvedilol for significant hypotension She is now hypertensive started on metoprolol 12.5mg BID for BP control and due to paroxysmal afib, see below follow up with PCP next week for BP check, might be able to add back lisinopril unsure how long she will need the hydrocortisone, now making her hypertensive (8) Hyperkalemia: Potassium mildly elevated here likely secondary to acute kidney injury and adrenal insufficiency K is normal past four days continue hydrocortisone (9) Hypoglycemia: Blood sugar low both last admission and this admission Given hypotension, hypoglycemia, hyperkalemia, question of has adrenal insufficiency Check random cortisol it is only 2 sugars better with hydrocortisone (10) History of ischemic colitis: From previous admission, secondary to hypotension at that time Resolved, no further abdominal pain no loose stools for three days, no blood Follow-up with GI as an outpatient for planned colonoscopy (11) Hypotension: due to adrenal insufficiency better on hydrocortisone (12) Supratherapeutic INR: INR 8.2 on admission She has been taking Coumadin but not eating anything for many days which is likely the cause Was given vitamin K 5 mg in the ER INR down to 1.5 today continue Coumadin but at only 2mg daily instructed to check INR on Tuesday 01/09 (13) Hyperlipidemia: Continue statin if tolerated (14) Lupus anticoagulant disorder: On Coumadin INR is 1.5 after vitamin K (15) History of cerebrovascular accident: On Coumadin With a history of lupus anticoagulant disorder (16) DVT prophylaxis: Coumadin, SCDs full admission likely will need rehab Full code (17) Paroxysmal atrial fibrillation: two very brief runs of afib on the monitor, both < 10 seconds, no symptoms no such history of afib HR in the 80's, NSR, at rest already takes Coumadin for lupus anticoagulant disorder will start on Lopressor 12.5mg BID since her BP is now elevated on Hydrocortisone follow up with PCP Total Time Total Time Spent Total Time Spent (In Minutes): 36 Total Time Includes: Examination of the Patient, Discharge Planning, Medication Reconciliation and Other (discussed plan with her at bedside) Discharge Plan Discharge Items Patient Disposition: Home - Home Health Services Reason For Visit: N/V,MATILDE,HYPONATREMIA Discharge Diagnosis: Adrenal insufficiency Condition on Discharge: Fair Goals: improve strength and mobility follow up with orthopedics follow up with endocrinology Activity: Resume your previous activity Weightbearing: Right non-weightbearing Non-emergency contact: Primary Care Provider Call non-emergency contact if: you have any medication questions and your symptoms worsen Follow-up/Referrals: Kenrick Bautista MD [Physician] - (keep appointment in January) Shiela Sanz DO [Primary Care Provider] - (one week) Theodore Marina DO [Physician] - (reschedule scopes, patient can call) Diet: Regular Addtl Attending Provider Instructions: Medications: - HYDROCORTISONE: take 20mg (two tablets) in the morning and then 10mg (one tablet) 8 hours later try to take at a consistent time each day, like 7am and 3pm or 8am and 4pm etc - METOPROLOL: 12.5mg twice a day, can start taking this evening, this is for paroxysmal atrial fibrillation, very brief - COUMADIN: dose reduced to 2mg daily follow up on Saturday for INR at [facility] Adrenal insufficiency presented with hallmark signs of low sodium, high potassium, low glucose, low blood pressure and nausea/vomiting symptoms and lab values normalized with starting Hydrocortisone IV transitioned to oral tablets, working well unsure 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 Bautista, endocrinology, in January as scheduled Recent colitis and anemia: please call [facility] gastroenterology to reschedule scopes Right ankle fracture: remain in cast, non weight bearing, follow up on 01/17 with orthopedics Paroxysmal atrial fibrillation: very brief, two episodes captured on the monitor, both were less than 10 seconds you already take Coumadin so continue with 2mg daily will add Lopressor 12.5mg BID, resting heart rate is in the 80-90's sinus so there is room for beta marcio Pending Studies at Discharge: No Stand-Alone Forms: My [facility], Smoking Cessation Medications and DC Order Prescriptions: New warfarin 2 mg Tablet 2 mg PO DAILY@1600 30 Days Qty: 30 RF: 3 metoprolol tartrate 25 mg Tablet 12.5 mg PO BID 30 Days Qty: 30 RF: 3 hydrocortisone [Cortef] 10 mg Tablet 10 mg PO UD 30 Days Qty: 90 RF: 0 Continued ondansetron HCl 8 mg tablet 8 mg PO Q8H PRN (Reason: nausea and vomiting) Qty: 30 RF: 0 atorvastatin 40 mg Tablet 40 mg PO HS RF: 0 acetaminophen [Tylenol Extra Strength] 500 mg Tablet 500 mg PO Q6H PRN (Reason: Fever Or Pain) RF: 0 zinc 50 mg Tablet 0 mg PO DAILY RF: 0 cholecalciferol (vitamin D3) 10 mcg (400 unit) Tablet 0 mcg PO DAILY RF: 0 oxycodone 5 mg tablet 5 mg PO Q4H PRN (Reason: pain) Qty: 15 RF: 0 Discontinued warfarin 2.5 mg Tablet 2.5 mg PO HS RF: 0 Discharge Orders: Discharge Order (Routine); Ordered 01/05/21 Ordered By: Vinicio Chapa Admission Data Admit Date/Time: 01/02/21 15:57 Attending Provider: Vinicio Chapa Admit Provider: Sherry Garcia Primary Care Provider: Shiela Sanz Other Providers: Sherry Garcia Other Interventions: Discharge Summary Assessment (RN) Last Done: 01/05/21 16:02 Coding Level of Care Code D/C Day Management >30 mins Diagnoses Adrenal insufficiency E27.40 Nausea & vomiting R11.2 MATILDE (acute kidney injury) N17.9 Hydronephrosis of right kidney N13.30 Hyponatremia E87.1 Anemia D64.9 Hypertension I10 Hyperkalemia E87.5 Hypoglycemia E16.2 History of ischemic colitis Z87.19 Hypotension I95.9 Supratherapeutic INR R79.1 Hyperlipidemia E78.5 Lupus anticoagulant disorder D68.62 History of cerebrovascular accident Z86.73 DVT prophylaxis Z29.9 Paroxysmal atrial fibrillation I48.0
[2021-01-06 14:16] LABS: Adrenocorticotropic Hormone 523 pg/mL (6-50); Renin Activity 3.08 ng/mL/h (0.25-5.82)
== END 2021-01-05 16:47 | disposition home or self-care (01) | DRG 813 ==
LOC: ED 13:11 → 2N 13:11 → SUATTDRO 16:44 → 2N 17:48